=== PATIENT | female | born 1990 | race Caucasian/White ===

== ENCOUNTER 2024-03-26 19:29 | Outpatient (CLI) | payer BC, SELFPAY ==
--- OUTSIDE RECORDS SUMMARY | 2024-03-26 19:32 | XMS_ITS | Encounter Summary ---
Author Organization [facility] Address [address] [place] [address] Care Team Providers Care Nurse Administrator Name Role Phone Meghan Beach KHALIDA Primary Care Provider [phone] Encounter Details Date Type Department Care Team (Latest Contact Info) Description 03/04/2024 Travel Social History Tobacco Use Types Packs/Day Years Used Date Smoking Tobacco: Never Assessed PHQ-2 Answer Date Recorded Patient Health Questionnaire-2 Score 0 03/04/2024 Estimated Date of Delivery Comme nts Yes 04/02/2024 Sex and Gender Information Value Date Recorded Sex Assigned at Female 01/09/2024 8:09 AM EDT Legal Sex Female 11:07 AM EST Gender Identity Female 01/09/2024 8:09 AM EDT Sexual Orientation Straight 01/09/2024 8: 09 AM EDT documented as of this encounter Plan of Treatment Upcoming Encounters Date Type Department Care Team (Late st Contact Info) Description 04/08/2024 11:00 AM EST Routine Obstetrics & Gynecology [address] [place] [address] Abiel Berrios MD [address] [place] [address] documented as of this encounter Goals Goal Patient Goal Type Associated Problems Recent Progress Patient-Stated? Author Delayed Delivery Care Plan CPM S22 [facility] LABOR (OBSTETRICS) No Open Scheduling, Background documented as of this encounter Visit Diagnoses Not on filedocumented in this encounter Additional Health Concerns Active Problems Noted Date Diagnosed Date CPM S22 [facility] LAB[facility] (OBSTETRICS) 02/05/2024 Assessment Noted Time A fall risk assessment has been complete d for the patient 03/04/2024 1:58 PM EST A Body Mass Index follow-up plan has been documented for the patient 02/24/2024 4:18 PM EST documented as of this encounter Care Teams Nurse Administrator Relationship Specialty Start Date End Date Meghan Beach APRN [address] [place] [address] [place] [address] PCP - General 04/03/22 documented as of this encounter
--- OUTSIDE RECORDS SUMMARY | 2024-03-26 19:32 | XMS_ITS | Encounter Summary ---
Author Organization [facility] Address [address] [place] [address] Care Team Providers Care In File Operator Name Role Phone Meghan Beach KHALIDA Primary Care Provider [phone] Reason for Visit * Reason Comments NST/BPP Visit Here for NST with d ecreased movement for 2 weeks , denies leaking and bleeding, reports constant cramping and sporadic ctx. Fell in tub this morning, landed on knees. Reports 7/10 constant pain in stomach, back and legs Encounter Details Date Type Department Care Team (Late st Contact Info) Description 03/11/2024 1:40 PM EST NST Obstetrics & Gynecology [address] [place] [address] Abiel Berrios MD [address] [place] [address] 36 weeks gestation of (Primary Dx); Chronic hypertension complicating or reason for care during , third trimester; AMA (advanced maternal age) multigravida 35+, third trimester; Previous section complicating ; Diet controlled gestational diabetes mellitus (GDM) in third trimester Social History Tobacco Use Types Packs/Day Years Used Date Smoking Tobacco: Never Assessed PHQ-2 Answer Date Recorded Patient Health Questionnaire-2 Score 0 03/11/2024 Estimated Date of Delivery Comme nts Yes 04/02/2024 Sex and Gender Information Value Date Recorded Sex Assigned at Female 01/09/2024 8:09 AM EDT Legal Sex Female 11:07 AM EST Gender Identity Female 01/09/2024 8:09 AM EDT Sexual Orientation Straight 01/09/2024 8: 09 AM EDT documented as of this encounter Last Filed Vital Signs Vital Sign Reading Time Taken Comments Blood Pressure 138/84 03/11/2024 2:01 PM EST Pulse 96 03/11/2024 2:01 PM EST Temperature 36.8 ??C (98.3 ??F) 03/11/2024 2:01 PM ES T Respiratory Rate - - Oxygen Saturation 96% 03/11/2024 2:01 PM EST Inhaled Oxygen Concentration - - Weight 162 kg (357 lb 5.9 oz) 03/11/2024 2:01 PM EST Height - - Body Mass Index 57.68 03/08/2024 2:11 PM EST documented in this encounter Miscellaneous Notes * Procedures - Abiel Berrios MD - 03/11/2024 5:31 PM EST 03/11/24 1731 Non-Stress Baby A Reason for Non-Stress Test Diabetes;Hypertension Variability in Waveform for Baby A 6-25 BPM Decelerations in Baby A None Accelerations in Baby A Yes Acoustic Stimulator for Baby A No Baseline Heart Rate for Baby A 140 BPM Uterine Irritability for Baby A No Contractions in Baby A Not present Interpretation of Non-Stress Test Comments on Non-Stress Test Reactive $ NST Charge 1 * Progress Notes - Abiel Berrios MD - 03/11/2024 1:40 PM EST Subjective Chief Complaint Patient presents with NST/BPP Visit Here for NST with decreased movement for 2 weeks , denies leaking and bleeding, reports constant cramping and sporadic ctx. Fell in tub this morning, landed on knees. Reports 7/10 constant pain in stomach, back and legs Whitley Whitfield is a 33 y.o. at 36w6d with a working estimated date of delivery of 04/02/2024, Alternate ALBERTO Entry who presents for a routine visit. She denies vaginal bleeding, leakage of fluid, decreased movements, or contractions. BG checks OK. No Pe-E sxs. Her is complicated by: GDM A1 CHTN H/O LTCS x 2 The following portions of the chart were reviewed this encounter and updated as appropriate: Meds Objective Physical Exam Weight: 162 kg (357 lb 5.9 oz) Expected Total Weight Gain: 5 kg (11 lb)-9 kg (19 lb) Pregravid BMI: 59.81 BP: 138/84 Heart Rate: NST Labs Urine dip: NA HGB (g/dL) Date/Time Value 03/01/2024 1407 11.1 (L) HCT (%) Date/Time Value 03/01/2024 1407 34.2 No results found for: PAPPA , AFP , HCG , ESTRIOL , INHBA GTT - Fasting (mg/dL) Date/Time Value 02/03/2024 0816 127 (H) GTT - 1 Hour (mg/dL) Date/Time Value 02/03/2024 0921 268 (H) GTT - 2 Hour (mg/dL) Date/Time Value 02/03/2024 1024 197 (H) GTT - 3 Hour (mg/dL) Date/Time Value 02/03/2024 1121 111 NST - Reactive Assessment/Plan Diagnoses and all orders for this visit: 36 weeks gestation of Chronic hypertension complicating or reason for care during , third trimester AMA (advanced maternal age) multigravida 35+, third trimester Previous section complicating Diet controlled gestational diabetes mellitus (GDM) in third trimester Continue vitamin. Labs reviewed. GBS NEG Labetalol + Procardia + bASA BG checks Expected mode of delivery RLTCS Follow up in AM for surgery documented in this encounter Plan of Treatment Upcoming Encounters Date Type Department Care Team (Late st Contact Info) Description 04/08/2024 11:00 AM EST Routine [facility] [address] [place] [address] Abiel Berrios MD [address] [place] [address] documented as of this encounter Goals Goal Patient Goal Type Associated Problems Recent Progress Patient-Stated? Author Delayed Delivery Care Plan CPM S22 PP LABOR (OBSTETRICS) No Open Scheduling, Background documented as of this encounter Visit Diagnoses Diagnosis 36 weeks gestation of - Primary Chronic hypertension complicating or reason for care during , third trimester AMA (advanced maternal age) multigravida 35+, third trimester Previous section complicating Diet controlled gestational diabetes mellitus (GDM) in third trimester documented in this encounter Additional Health Concerns Active Problems Noted Date Diagnosed Date CPM S22 PP LABOR (OBSTETRICS) 02/05/2024 Assessment Noted Time A fall risk assessment has been complete d for the patient 03/11/2024 2:02 PM EST A Body Mass Index follow-up plan has been documented for the patient 02/24/2024 4:18 PM EST documented as of this encounter Care Teams In File Operator Relationship Specialty Start Date End Date Meghan Beach APRN [address] [place] [address] [place] [address] PCP - General 04/03/22 documented as of this encounter
--- OUTSIDE RECORDS SUMMARY | 2024-03-26 19:32 | XMS_ITS | Encounter Summary ---
Author Organization [facility] Address [address] [place] [address] Care Team Providers Care Newcomer Hostess Name Role Phone Meghan Beach KHALIDA Primary Care Provider [phone] Encounter Details Date Type Department Care Team (Latest Contact Info) Description 03/08/2024 Travel Social History Tobacco Use Types Packs/Day Years Used Date Smoking Tobacco: Never Assessed PHQ-2 Answer Date Recorded Patient Health Questionnaire-2 Score 0 03/08/2024 Estimated Date of Delivery Comme nts Yes [...] Routine Obstetrics & Gynecology [address] [place] [address] Abiel Berrios MD [address] [place] [address] documented as of this encounter [...] has been complete d for the patient 03/08/2024 2:12 PM EST A Body Mass Index follow-up plan has been documented for the patient 02/24/2024 4:18 PM EST documented as of this encounter Care Teams Newcomer Hostess Relationship Specialty Start Date End Date Meghan Beach APRN [address] [place] [address] [place] [address] PCP - General 04/03/22 documented as of this encounter
--- OUTSIDE RECORDS SUMMARY | 2024-03-26 19:32 | XMS_ITS | Encounter Summary ---
Author Organization [facility] Address [address] [place] [address] Care Team Providers Care Epidemiology Internship Name Role Phone Meghan Beach KHALIDA Primary Care Provider [phone] Encounter Details Date Type Department Care Team (Latest Contact Info) Description 03/15/2024 Travel Social History Tobacco Use Types Packs/Day [...] Routine Obstetrics & Gynecology [address] [place] [address] Abiel Berrios MD [address] [place] [address] documented as of this encounter [...] documented as of this encounter Care Teams Epidemiology Internship Relationship Specialty Start Date End Date Meghan Beach APRN [address] [place] [address] [place] [address] PCP - General 04/03/22 documented as of this encounter
--- OUTSIDE RECORDS SUMMARY | 2024-03-26 19:32 | XMS_ITS | Clinical Summary ---
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 Active labetalol (Normodyne) 200 MG tablet Take 1 tablet (200 mg) by mouth 3 (three) times a day. 90 tablet 3 01/21/2024 5 Active NIFEdipine XL (Procardia XL) 30 MG 24 hr tablet Take 1 tablet (30 mg) by mouth 2 (two) times a day. Do not crush, chew, or split. 60 tablet 5 01/27/2024 5 Active Vit-Fe Fumarate-FA ( Vitamins) 28-0.8 MG tablet Take 1 tablet by mouth 1 (one) time each day. 90 tablet 3 02/09/2024 5 Active Active Problems Problem Noted Date Diagnosed Date 35 weeks gestation of 03/01/2024 Chronic hypertension complic ating or reason for care during , third trimester 03/01/2024 Previous section complicating 03/01/2024 Multigravida of advanced maternal age in third t rimester 03/01/2024 Gestational diabetes mellitus (GDM) in third tri mester 03/01/2024 Estimated Date of Delivery Comme nts Yes 04/02/2024 Encounters Date Type Department Care Team Description 03/15/2024 Travel 03/11/2024 1:40 PM EST NST Obstetrics & Gynecology [address] [place] [address] Abiel Berrios MD 36 weeks gestation of (Primary Dx); Chronic hypertension complicating or reason for care during , third trimester; AMA (advanced maternal age) multigravida 35+, third trimester; Previous section complicating ; Diet controlled gestational diabetes mellitus (GDM) in third trimester 03/11/2024 Travel 03/08/2024 1:40 PM EST NST Obstetrics & Gynecology [address] [place] [address] Abiel Berrios MD 36 weeks gestation of (Primary Dx); Chronic hypertension complicating or reason for care during , third trimester; AMA (advanced maternal age) multigravida 35+, third trimester; Previous section complicating ; Diet controlled gestational diabetes mellitus (GDM) in third trimester; Decreased movements in third trimester, single or unspecified fetus 03/08/2024 Travel 03/04/2024 1:40 PM EST NST Obstetrics & Gynecology [address] [place] [address] Abiel Berrios MD 35 weeks gestation of (Primary Dx); Chronic hypertension complicating or reason for care during , third trimester; AMA (advanced maternal age) multigravida 35+, third trimester; Previous section complicating ; Diet controlled gestational diabetes mellitus (GDM) in third trimester 03/04/2024 Travel 03/03/2024 Telephone Obstetrics & Gynecology [address] [place] [address] Abiel Berrios MD [facility] Clinical Concern/Question (proof) 03/01/2024 1:40 PM EST NST Obstetrics & Gynecology [address] [place] [address] Alison Egan MD Chronic hypertension complicating or reason for care during , third trimester (Primary Dx); 35 weeks gestation of ; Multigravida of advanced maternal age in third trimester; Previous section complicating ; Diet controlled gestational diabetes mellitus (GDM) in third trimester 03/01/2024 Travel 02/24/2024 3:00 PM EST Routine Obstetrics & Gynecology [address] [place] [address] Abiel Berrios MD Chronic hypertension complicating or reason for care during , third trimester (Primary Dx); 34 weeks gestation of ; Previous section complicating ; Diet controlled gestational diabetes mellitus (GDM) in third trimester; AMA (advanced maternal age) multigravida 35+, third trimester 02/24/2024 2:35 PM EST - 02/24/2024 11:59 PM EST Hospital Encounter [facility] [address] [place] [address] Chronic hypertension complicating or reason for care during , third trimester Discharge Disposition: Home or Self Care 02/24/2024 Orders Only External Location [address] [place] [address] Abiel Berrios MD 02/24/2024 Travel 02/12/2024 9:20 AM EDT NST Obstetrics & Gynecology [address] [place] [address] Abiel Berrios MD 32 weeks gestation of (Primary Dx); Chronic hypertension complicating or reason for care during , third trimester; Previous section complicating ; Diet controlled gestational diabetes mellitus (GDM) in third trimester; AMA (advanced maternal age) multigravida 35+, third trimester 02/12/2024 Travel 02/09/2024 3:40 PM EDT NST Obstetrics & Gynecology [address] [place] [address] Abiel Berrios MD 32 weeks gestation of (Primary Dx); Chronic hypertension complicating or reason for care during , third trimester; Previous section complicating ; Diet controlled gestational diabetes mellitus (GDM) in third trimester; AMA (advanced maternal age) multigravida 35+, third trimester 02/09/2024 Travel 02/04/2024 Education Obstetrics & Gynecology [address] [place] [address] Shannon Magana RN Diet controlled gestational diabetes mellitus (GDM) in third trimester (Primary Dx) 02/03/2024 8:00 AM EDT Clinical Support Obstetrics & Gynecology [address] [place] [address] 31 weeks gestation of (Primary Dx) 02/03/2024 Travel 01/28/2024 Telephone Obstetrics & Gynecology [address] [place] [address] Abiel Berrios MD 01/27/2024 3:00 PM EDT Routine Obstetrics & Gynecology [address] [place] [address] Abiel Berrios MD 30 weeks gestation of (Primary Dx); Previous section complicating ; Chronic hypertension complicating or reason for care during , third trimester; AMA (advanced maternal age) multigravida 35+, third trimester 01/27/2024 2:53 PM EDT - 01/27/2024 11:59 PM EDT Hospital En[facility] [address] [place] [address] 29 weeks gestation of Discharge Disposition: Home or Self Care 01/27/2024 Travel 01/20/2024 Telephone Obstetrics & Gynecology [address] [place] [address] Abiel Berrios MD 01/19/2024 3:15 PM EDT Initial Obstetrics & Gynecology [address] [place] [address] Abiel Berrios MD GA: 29w3d 01/19/2024 Travel 01/06/2024 Telephone Obstetrics & Gynecology [address] [place] [address] Abiel Berrios MD [facility] - Patient Message from Last 3 Months Immunizations Name Administration Dates Next Due Influenza, seasonal, injectable, preservative fr ee 01/19/2024 Rsv, Bivalent, Protein Subun it Rsvpref, Diluent Reconstituted, 0.5mL, PF 02/09/2024 Tdap 01/19/2024 Family History Medical History Relation Name Comments Lupus Mother Relation Name Status Comments Mother Social History Tobacco Use Types Packs/Day Years [...] Orientation Straight 01/09/2024 8: 09 AM EDT Last Filed Vital Signs Vital Sign Reading Time Taken Comments Blood Pressure 138/84 03/11/2024 2:01 PM EST Pulse 96 03/11/2024 2:01 PM EST Temperature 36.8 ??C (98.3 ??F) 03/11/2024 2:01 PM ES T Respiratory Rate 16 01/27/2024 3:00 PM EDT Oxygen Saturation 96% 03/11/2024 2:01 PM EST Inhaled Oxygen Concentration - - Weight 162 kg (357 lb 5.9 oz) 03/11/2024 2:01 PM EST Height 167.6 cm (5' 6 ) 03/08/2024 2:11 PM EST Body Mass Index 57.68 03/08/2024 2:11 PM EST Plan of Treatment Upcoming Encounters Date Type Department Care Team (Late st Contact Info) Description 04/08/2024 11:00 AM EST Routine Obstetrics & Gynecology [address] [place] [address] Abiel Berrios MD [address] [place] [address] Health Maintenance Due Date Last Done Comments [facility]-HIV Screening 1988 [facility]-Hepatitis C Screening 1988 [facility]-/Child/Adol SDOH Screenings 1988 [facility]-Pneumococcal Vaccine: Pediatrics (0 to 5 Years) and At-Risk Patients (6 to 64 Years) (1 of 2 - PCV) 1994 [facility]-Varicella Vaccines (1 of 2 - 13+ 2-dose series) 2001 [facility]- SDOH Screenings 2006 [facility]-Adult SDOH Screenings 2006 [facility]-Pap Smear 2009 [facility]-Cervical Cancer Screening 2018 [facility]-HPV/Cotest 2018 [id number] Vaccine (2 - 2023- season) 2023 10/16/2022 [facility]-Depression Screening 03/11/2025 03/11/2024 [facility]-DTaP,Tdap,and Td Vaccines (9 - Td or Tdap) 01/18/2034 01/19/2024, 04/18/2022, 08/09/2016, Additional history exists [facility]-Zoster Vaccines (1 of 2) 2038 [facility]-Hepatitis A Vaccines Aged Out 12/01/2020, 07/21 No longer eligible based on patient's age to complete this topic [facility]-Hepatitis B Vaccines Completed 021, 08/09/2016, 11/25/2002 [facility]-Influenza Vaccine Completed 01/19/2024 [facility]-RSV Vaccine: 60+ Years or Completed 02/09/2024 [facility]-Obesity Intervention Completed 024, 02/03/2024, 01/27/2024, Additional history exists [facility]-HIB Vaccines Aged Out No longer e ligible based on patient's age to complete this topic [facility]-HPV Vaccines Aged Out No longer e ligible based on patient's age to complete this topic [facility]-IPV Vaccines Aged Out No longer e ligible based on patient's age to complete this topic [facility]-Rotavirus Vaccines Aged Out No lo nger eligible based on patient's age to complete this topic Goals Goal Patient Goal Type Associated Problems Recent Progress Patient-Stated? Author Delayed Delivery Care Plan CPM S22 PP LABOR (OBSTETRICS) No Open Scheduling, Background Procedures Procedure Name Priority Date/Time Associated Diagnosis Comments CBC W/O DIFFERENTIAL Routine 03/13/2024 6:51 AM EST TYPE AND SCREEN Routine 03/12/2024 5:30 AM EST CREATININE, SERUM Routine 03/12/2024 5:3 0 AM EST LACTATE DEHYDROGENASE, PLASMA Routine 03/12/2024 5:30 AM EST URIC ACID, PLASMA Routine 03/12/2024 5:3 0 AM EST ASPARTATE AMINOTRANSFERASE, PLASMA Routine 03/12/2024 5:30 AM EST ALANINE AMINOTRANSFERASE, PLASMA Routine 03/12/2024 5:30 AM EST URINE TOTAL PROTEIN/CREATININE ([facility]) Routine 03/12/2024 5:30 AM EST CBC WITH AUTO DIFFERENTIAL Routine 03/12/2024 5:30 AM EST GROUP B STREPTOCOCCUS BY PCR Routine 03/08/2024 2:32 PM EST 36 weeks gestation of POCT URINALYSIS DIPSTICK Routine 03/08/2024 2:18 PM EST 36 weeks gestation of POCT URINALYSIS DIPSTICK Routine 03/01/2024 2:26 PM EST Chronic hypertension complicating or reason for care during , third trimester PROTEIN, URINE, RANDOM WITH CREATININE Routine 03/01/2024 2:07 PM EST Chronic hypertension complicating or reason for care during , third trimester OB PANEL PRE ECLAMPSIA, PLASMA Routine 03/01/2024 2:07 PM EST Chronic hypertension complicating or reason for care during , third trimester CBC W/O DIFFERENTIAL Routine 03/01/2024 2:07 PM EST Chronic hypertension complicating or reason for care during , third trimester TYPE AND SCREEN Routine 02/24/2024 5:07 PM EST CREATININE, SERUM Routine 02/24/2024 5:0 7 PM EST LACTATE DEHYDROGENASE, PLASMA Routine 02/24/2024 5:07 PM EST URIC ACID, PLASMA Routine 02/24/2024 5:0 7 PM EST ASPARTATE AMINOTRANSFERASE, PLASMA Routine 02/24/2024 5:07 PM EST ALANINE AMINOTRANSFERASE, PLASMA Routine 02/24/2024 5:07 PM EST CBC W/O DIFFERENTIAL Routine 02/24/2024 5:07 PM EST URINE TOTAL PROTEIN/CREATININE ([facility]) Routine 02/24/2024 5:00 PM EST URINE CULTURE Routine 02/24/2024 5:00 PM EST POCT URINALYSIS DIPSTICK Routine 02/24/2024 4:09 PM EST Chronic hypertension complicating or reason for care during , third trimester URINE CULTURE Routine 02/24/2024 4:09 PM EST Chronic hypertension complicating or reason for care during , third trimester OB US FOLLOW UP TRANSABDOMINAL APPROACH Routine 02/24/2024 3:54 PM EST Chronic hypertension complicating or reason for care during , third trimester GTT 3 HOUR Routine 02/03/2024 11:21 AM EDT 31 weeks gestation of GTT 2 HOUR Routine 02/03/2024 10:24 AM EDT 31 weeks gestation of GTT 1 HOUR Routine 02/03/2024 9:21 AM EDT 31 weeks gestation of GTT, FASTING Routine 02/03/2024 8:16 AM EDT 31 weeks gestation of GLUCOSE TOLERANCE CONFIRMATION, 3 HOUR, OB, PLASMA Routine 02/03/2024 8:16 AM EDT 31 weeks gestation of OB US 14+ WEEKS ANATOMY SCAN Routine 01/27/2024 3:53 PM EDT 29 weeks gestation of CBC W/O DIFFERENTIAL Routine 01/27/2024 3:03 PM EDT 30 weeks gestation of GLUCOSE CHALLENGE - OB SCREEN Routine 01/27/2024 3:03 PM EDT 30 weeks gestation of POCT URINALYSIS DIPSTICK Routine 01/19/2024 4:22 PM EDT 29 weeks gestation of from Last 3 Months Results * (ABNORMAL) CBC W/O Differential (03/13/2024 6:51 AM EST) Only the most recent of4 resultswithin the time period is included. External WBC 10.1 4.0 - 10.5 K/ul [facility] External Red Blood Cell (RBC) 3.3(L) 4.2 - 6.4 M/mm3 [facility] External Hemoglobin 9.9(L) 12.5 - 16.0 gm/dl [facility] External Hematocrit 29.8(L) 37.0 - 47.0 % [facility] External MCV 90.3 78 - 100 fl [facility] External MCH 30.0 27 - 31 pg [facility] External MCHC 33.2 32 - 36 g/dl [facility] External RDW 15.6(H) 11.5 - 14.0 % [facility] External Platelets 200 150 - 450 K/ul [facility] External MPV 10.1(H) 6 - 9.5 fl [facility] External Manual Differential NO [facility] 03/13/2024 6:51 AM EST 03/13/2024 6:51 AM EST Result Saw Berrios MD LAB BLOOD ORDERABLES Final Resu lt Performing Organization Address [facility] Phone Number [facility] * Urine Total Protein/Creatinine ([facility]) (03/12/2024 5:30 AM EST) Only the most recent of2 resultswithin the time period is included. External Creatinine Urine 228.2 MG/DL [facility] External Protein, Ur Random 65.5 6.0 - 250.0 mg/dL [facility] 03/12/2024 5:30 AM EST 03/12/2024 5:41 AM EST Result Saw Berrios MD LAB URINE ORDERABLES Final Resu lt Performing Organization Address [facility] Phone Number [facility] * Aspartate Aminotransferase, Plasma (03/12/2024 5:30 AM EST) Only the most recent of2 resultswithin the time period is included. External AST (SGOT) 16 0 - 37 U/L [facility] 03/12/2024 5:30 AM EST 03/12/2024 5:41 AM EST Result Saw Berrios MD LAB BLOOD ORDERABLES Final Resu lt Performing Organization Address [facility] Phone Number [facility] * Alanine Aminotransferase, Plasma (03/12/2024 5:30 AM EST) Only the most recent of2 resultswithin the time period is included. External ALT (SGPT) 14 0 - 65 U/L [facility] 03/12/2024 5:30 AM EST 03/12/2024 5:41 AM EST Result Saw Berrios MD LAB BLOOD ORDERABLES Final Resu lt [facility] * (ABNORMAL) CBC and Differential (03/12/2024 5:30 AM EST) External WBC 13.2(H) 4.0 - 10.5 K/ul [facility] External Red Blood Cell (RBC) 4.1(L) 4.2 - 6.4 M/mm3 [facility] External Hemoglobin 12.1(L) 12.5 - 16.0 gm/dl [facility] External Hematocrit 35.8(L) 37.0 - 47.0 % [facility] External MCV 87.3 78 - 100 fl [facility] External MCH 29.5 27 - 31 pg [facility] External MCHC 33.8 32 - 36 g/dl [facility] External RDW 15.1(H) 11.5 - 14.0 % [facility] External Platelets 272 150 - 450 K/ul [facility] External MPV 10.4(H) 6 - 9.5 fl [facility] External Neutrophils % 79.2(H) 43 - 65 % [facility] External Lymphocyte % 14.1(L) 20.5 - 45.5 % [facility] External Monocyte % 3.9(L) 5.5 - 11.7 % [facility] External Eosinophil% 2.0 0.9 - 2.9 % [facility] External Basophil % 0.3 0.2 - 1.0 % [facility] External Immature Granulocyte% 0.5 0.0 - 0.8 % [facility] External Nucleated RBC % 0.0 % [facility] External Neutrophil# 10.5(H) 2.2 - 4.8 K/uL [facility] External Lymphocyte# 1.9 1.3 - 2.9 CELL/MCL [facility] External Monocyte# 0.5 0.3 - 0.8 CELL/MCL [facility] External Eosinophils# 0.3(H) 0 - 0.2 CELL/MCL [facility] External Baso# 0.0 0.0 - 1.0 CELL/MCL [facility] External Immature Granulocyte Abs 0.07 K/ul [facility] External Nucleated RBC Absolute 0.00 K/uL [facility] External Manual Differential NO [facility] 03/12/2024 5:30 AM EST 03/12/2024 5:41 AM EST Result Saw Berrios MD LAB BLOOD ORDERABLES Final Resu lt Performing Organization Address [facility] Phone Number [facility] * Type and Screen (03/12/2024 5:30 AM EST) Only the most recent of2 resultswithin the time period is included. External History Check Completed [facility] External ABO/Rh O POSITIVE [facility] Comment:performed by [employer] External Antibody Screen NEGATIVE [facility] Comment:performed by [employer] External Status Information Completed [facility] 03/12/2024 5:30 AM EST 03/12/2024 5:41 AM EST Result Saw Berrios MD LAB BLOOD BANK TEST ORDERABLES Final Result Performing Organization Address [facility] Phone Number [facility] * Uric Acid, Plasma (03/12/2024 5:30 AM EST) Only the most recent of2 resultswithin the time period is included. External Uric Acid 5.4 2.6 - 6.0 mg/dL [facility] 03/12/2024 5:30 AM EST 03/12/2024 5:41 AM EST Result Saw Berrios MD LAB BLOOD ORDERABLES Final Resu lt Performing Organization Address [facility] Phone Number [facility] * Lactate Dehydrogenase, Plasma (03/12/2024 5:30 AM EST) Only the most recent of2 resultswithin the time period is included. External LDH Lactate Dehydrogenase 158 0 - 190 U/L [facility] 03/12/2024 5:30 AM EST 03/12/2024 5:41 AM EST us Abiel Berrios MD LAB BLOOD ORDERABLES Final Resu Performing Organization Address [facility] Phone Number [facility] * Creatinine, serum (03/12/2024 5:30 AM EST) Only the most recent of2 resultswithin the time period is included. External Creatinine Blood 0.6 0.6 - 1.3 mg/dL [facility] External Estimated GFR 120 60- mlpermin [facility] Comment: GFR LIMITATION: ? The eGFR equation CKD-EPI 2020 is not applicable for pediatric patients or greater than 90 years of age. The following conditions may alter the GFR result: extremes in body size, malnutrition or obesity, skeletal muscle disease, paraplegia or quadriplegia, ??vegetarian diet or rapidly changing kiney function. 03/12/2024 5:30 AM EST 03/12/2024 5:41 AM EST us Abiel Berrios MD LAB BLOOD ORDERABLES Final Resu Performing Organization Address [facility] Phone Number [facility] * Group B Streptococcus by PCR (03/08/2024 2:32 PM EST) Group B Streptococcus PCR Result Not Detected Not Detected 03/11/2024 8:17 AM EST [facility] Swab Rectovaginal / Unknown Non-blood Collection / Unknown 03/08/2024 2:32 PM EST 03/08/2024 6:21 PM EST Narrative [facility] - 03/11/2024 8:17 AM EST This test is FDA approved for use with vaginal/rectal swab using the eSwabs. This test is used for clinical purposes. It should not be regarded as investigational or for research. This laboratory is certified under the Clinical Laboratory improvement Amendments of 1988 (CLIA-88 as qualified to perform high complexity clinical laboratory testing. us Abiel Berrios MD LAB MICROBIOLOGY - [facility] Final Result [facility] [address] [place] [address] * (ABNORMAL) Urine dip (03/08/2024 2:18 PM EST) Only the most recent of4 resultswithin the time period is included. POCT Urine Color Yellow POCT Urine Clarity Clear POCT Glucose Urine Negative Negative mg/dL POCT Bilirubin, Urine Negative Negative POCT Ketones, Urine 15(A) Negative mg/dL POCT Specific [place], Urine 1.020 POCT Blood, Urine Negative Negative POCT pH, Urine 6.5 5.0 to 8.0 POCT Protein, Urine Negative Negative mg/dL POCT Urobilinogen, Urine 0.2 0.2, 1 E.U./dL POCT Nitrite, Urine Negative Negative POCT Leukocyte Esterase, Urine Trace(A) Negative Test Strip Lot Number [id number] Test Strip Lot Expiration 06/2024 Urine Urine specimen obtained by clean catch procedure / Unknown 03/08/2024 2:18 PM EST us Abiel Berrios MD POINT OF CARE TEST ENTER/EDIT O RDERABLES Final Result * (ABNORMAL) OB Panel Pre-Eclampsia, Plasma (03/01/2024 2:07 PM EST) Pathologist [facility] Uric Acid, Plasma 5.1 3.1 - 7.1 mg/dL 03/01/2024 6:16 PM EST [facility] Creatinine, Plasma 0.52(L) 0.60 - 1.10 mg/dL 03/01/2024 6:16 PM EST [facility] ALT, Plasma 15 10 - 35 U/L 03/01/2024 6:16 PM EST [facility] AST, Plasma 15 10 - 35 U/L 03/01/2024 6:16 PM EST [facility] LDH, Plasma 154 116 - 250 U/L 03/01/2024 6:16 PM EST [facility] eGFRcr 124.4 mL/min/1.7 3m*2 03/01/2024 6:16 PM EST [facility] Comment:Reported eGFRcr in m L/min/1.73m2 is based the CKD-EPI 2020 equation that does not use a race coefficient. Blood Venous blood specimen / Unknown Venipuncture / Unknown 03/01/2024 2:07 PM EST 03/01/2024 5:56 PM EST Alison Egan MD LAB BLOOD ORDERABLES Fin al Result Performing Organization Address City/[facility] Co de Phone Number [facility] [address] [place] [address] * Protein, Random, Urine with Creatinine (03/01/2024 2:07 PM EST) Protein, Urine 38 mg/dL 03/01/2024 6:34 PM EST [facility] Creatinine, Urine 187 mg/dL 03/01/2024 6:34 PM EST [facility] Protein/Creatin ine Ratio 0.2 mg/mg Creat 03/01/2024 6:34 PM EST [facility] Urine Urine specimen obtained by clean catch procedure / Unknown Non-blood Collection / Unknown 03/01/2024 2:07 PM EST 03/01/2024 6:02 PM EST us Alison Egan MD LAB URINE ORDERABLES Fin al Result Performing Organization Address City/[facility]/ZIP Co de Phone Number [facility] [address] [place] [address] * Urine Culture (02/24/2024 5:00 PM EST) Only the most recent of2 resultswithin the time period is included. External Culture Specimen NO.: ?[id number] ? Exam Status: ?? Final ? Procedure: ??CULTURE URINE ? Iso/Result: 01 Escherichia coli ? Antimicrobic/Do se ?LYN ?Systemic ??Urine ? __ ?___ ? Amikacin ? <=16 ? S ?S ? Amox/K Clav ?<=8/4 ?S ?S ? Ampicillin ? <=8 ?S ?S ? Amp/Sulbactam ?<=8/4 ?S ?S ? Aztreonam ?<=4 ?S ?S ? Cefotaxime-ESBL ?<=1 ? Cefepime ? <=2 ?S ?S ? Ertapenem ?<=0.5 ?S ?S ? Levofloxacin ? <=2 ?S ?S ? Meropenem ?<=1 ?S ?S ? Minocycline ?<=4 ?S ?S ? Cefazolin ?<=2 ?S ?S ? Cefotaxime ? <=2 ?S ?S ? Cefotetan ?<=16 ? S ?S ? Ceftazidime ?<=1 ?S ?S ? Ceftriaxone ?<=1 ?S ?S ? Ciprofloxacin ?<=1 ?S ?S ? Gentamicin ? <=4 ?S ?S ? Nitrofurantoin ? <=32 ? S ?S ? Pip/Tazo ? <=16 ? S ?S ? Tetracycline ? <=4 ?S ?S ? Tobramycin ? <=4 ?S ?S ? Trimeth/Sulfa ?<=2/38 ? S ?S ? [facility] External Comments AAC 2024-02-25 701 >100,000 [place] Count Gram Negative Rods [facility] 02/24/2024 5:00 PM EST 02/24/2024 7:45 PM EST Result Saw Berrios MD [facility] Final Result Performing Organization Address City/State/[facility] Co de Phone Number [facility] * OB US Follow Up Transabdominal Approach (02/24/2024 3:54 PM EST) Anatomical Region Laterality Modality Body Ultrasound 02/24/2024 3:31 PM EST Impressions 02/24/2024 7:55 PM EST The OB Ultrasound you requested has been resulted. Please navigate to the Imaging tab in [employer] for review. This message has been generated by the interface. Narrative Procedure Note Barbara De La Cruz MD - 02/24/2024 IMPRESSION: The OB Ultrasound you requested has been resulted. Please navigate to theImaging tab in [employer] for review. This message has been generated by theinterface. Result Saw Berrios MD IMG OB US PROCEDURES Final Resu lt * GTT 3 Hour (02/03/2024 11:21 AM EDT) GTT - 3 Hour 111 74 - 139 mg/dL 02/03/2024 1:55 PM EDT [facility] Blood Venous blood specimen / Unknown Venipuncture / Unknown 02/03/2024 11:21 AM EDT 02/03/2024 12:55 PM EDT Narrative [facility] - 02/03/2024 1:55 PM EDT At least 2 of the 4 values must be abnormal for the diagnosis of gestational diabetes. Result Saw Berrios MD LAB BLOOD ORDERABLES Final Resu lt Performing Organization Address [facility] Co de Phone Number [facility] [address] [place] [address] * (ABNORMAL) GTT 2 Hour (02/03/2024 10:24 AM EDT) GTT - 2 Hour 197(H) 74 - 154 mg/dL 02/03/2024 1:48 PM EDT [facility] Blood Venous blood specimen / Unknown Venipuncture / Unknown 02/03/2024 10:24 AM EDT 02/03/2024 12:55 PM EDT Narrative [facility] - 02/03/2024 1:48 PM EDT Plasma glucose concentrations measured 2 hours after a 75g glucose load of >=200 mg/dL are diagnostic for Diabetes Mellitus. Result Saw Berrios MD LAB BLOOD ORDERABLES Final Resu lt Performing Organization Address [facility] Co de Phone Number [facility] [address] [place] [address] * (ABNORMAL) GTT 1 Hour (02/03/2024 9:21 AM EDT) GTT - 1 Hour 268(H) 74 - 179 mg/dL 02/03/2024 1:54 PM EDT [facility] Blood Venous blood specimen / Unknown Venipuncture / Unknown 02/03/2024 9:21 AM EDT 02/03/2024 12:55 PM EDT Result Saw Berrios MD LAB BLOOD ORDERABLES Final Resu lt Performing Organization Address City/[facility]/ZIP Co de Phone Number [facility] [address] [place] [address] * (ABNORMAL) GTT, Fasting (02/03/2024 8:16 AM EDT) GTT - Fasting 127(H) 74 - 94 mg/dL 02/03/2024 1:49 PM EDT [facility] Blood Venous blood specimen / Unknown Venipuncture / Unknown 02/03/2024 8:16 AM EDT 02/03/2024 12:55 PM EDT Result Saw Berrios MD LAB BLOOD ORDERABLES Final Resu lt [facility] [address] [place] [address] * OB US 14+ Weeks Anatomy Scan (01/27/2024 3:53 PM EDT) Anatomical Region Laterality Modality Body Ultrasound 01/27/2024 3:07 PM EDT Impressions 01/29/2024 2:12 PM EDT The OB Ultrasound you requested has been resulted. Please navigate to the Imaging tab in [employer] for review. This message has been generated by the interface. Narrative Procedure Note Stevo Huff MD - 01/29/2024 IMPRESSION: The OB Ultrasound you requested has been resulted. Please navigate to theImaging tab in [employer] for review. This message has been generated by theinterface. Result Saw Berrios MD IMG OB US PROCEDURES Final Resu lt * (ABNORMAL) Glucose Challenge - OB Screen 1 hour (01/27/2024 3:03 PM EDT) Glucose OB Screen - 1 Hour 156(H) 74 - 139 mg/dL 01/27/2024 6:47 PM EDT [facility] Blood Venous blood specimen / Unknown Venipuncture / Unknown 01/27/2024 3:03 PM EDT 01/27/2024 6:19 PM EDT Narrative [facility] - 01/27/2024 6:47 PM EDT If plasma glucose concentration measured 1 hour after 50g glucose load is >= 140 mg/L, proceed to [id number], Glucose Tolerance Confirmation 3 Hour Test. us Abiel Berrios MD LAB BLOOD ORDERABLES Final Resu lt [facility] [address] [place] [address] from Last 3 Months Additional Health Concerns Active Problems Noted Date Diagnosed Date CPM S22 PP LABOR (OBSTETRICS) 02/05/2024 Insurance [facility] MEDICAID Care Teams Animal Cruelty Investigator Relationship Specialty Start Date End Date Meghan Beach APRN [address] [facility] [place] [address] PCP - General 04/03/22
--- OUTSIDE RECORDS SUMMARY | 2024-03-26 19:32 | XMS_ITS | Encounter Summary ---
Author Organization Healthcare Address [address] [place] [address] Care Team Providers Care Screen Maker Name Role Phone Meghan Beach KHALIDA Primary Care Provider [phone] Reason for Visit * Reason Comments NST/BPP Visit Here for NST with go od movement, no leaking or bleeding, some cramping, denies ctx. Encounter Details Date Type Department Care Team (Late st Contact Info) Description 03/04/2024 1:40 PM EST [facility] Obstetrics & Gynecology [address] [place] [address] Abiel Berrios MD [address] [place] [address] 35 weeks gestation of (Primary Dx); Chronic [...] Sign Reading Time Taken Comments Blood Pressure 132/83 03/04/2024 1:57 PM EST Pulse 100 03/04/2024 1:57 PM EST Temperature 36.7 ??C (98.1 ??F) 03/04/2024 1:57 PM ES T Respiratory Rate - - Oxygen Saturation 90% 03/04/2024 1:57 PM EST Inhaled Oxygen Concentration - - Weight 163 kg (358 lb 14.5 oz) 03/04/2024 1:57 P M EST Height - - Body Mass Index 57.93 03/01/2024 1:47 PM EST documented in this encounter Miscellaneous Notes * Procedures - Abiel Berrios MD - 03/04/2024 2:47 PM EST 03/04/24 1447 Non-Stress Baby A Reason for Non-Stress Test Diabetes;Hypertension;Advanced maternal age Variability in Waveform for Baby A 6-25 BPM Decelerations in Baby A None Accelerations in Baby A Yes Acoustic Stimulator for Baby A No Baseline Heart Rate for Baby A 150 BPM Uterine Irritability for Baby A No Contractions in Baby A Not present Interpretation of Non-Stress Test Comments on Non-Stress Test Reactive $ NST Charge 1 * Progress Notes - Abiel Berrios MD - 03/04/2024 1:40 PM EST Subjective Chief Complaint Patient presents with NST/BPP Visit Here for NST with good movement, no leaking or bleeding, some cramping, denies ctx. Whitley Whitfield is a 33 y.o. at 35w6d with a working estimated date of delivery of 04/02/2024, Alternate ALBERTO Entry who presents for a routine visit. She denies vaginal bleeding, leakage of fluid, decreased movements, or contractions. Her is complicated by: CHTN GDM A1 H/O LTCS x 2 AMA The following portions of the chart were reviewed this encounter and updated as appropriate: Meds Objective Physical Exam Weight: 163 kg (358 lb 14.5 oz) Expected Total Weight Gain: 5 kg (11 lb)-9 kg (19 lb) Pregravid BMI: 59.81 BP: 132/83 Heart Rate: NST Labs Urine dip: NA [...] Diagnoses and all orders for this visit: 35 weeks gestation of Chronic hypertension complicating or reason for care during , third trimester AMA (advanced maternal age) multigravida 35+, third trimester Previous section complicating Diet controlled gestational diabetes mellitus (GDM) in third trimester Continue vitamin. Labs reviewed. GBS at 36 weeks BG checks Labetalol + Procardia + bASA Expected mode of delivery RLTCS Follow up 2x/week for a routine visit w/ NSTs. documented in this encounter Plan of Treatment Upcoming Encounters Date Type Department Care Team (Late st Contact Info) Description 04/08/2024 11:00 AM EST Routine [facility] [address] [place] [address] Abiel Berrios MD [address] [place] [address] documented as of this encounter Goals Goal Patient Goal Type Associated Problems Recent Progress Patient-Stated? Author Delayed Delivery Care Plan CPM S22 PP LABOR (OBSTETRICS) No Open Scheduling, Background documented as of this encounter Visit Diagnoses Diagnosis 35 weeks gestation of - Primary Chronic hypertension [...] documented as of this encounter Care Teams Screen Maker Relationship Specialty Start Date End Date Meghan Beach, KHALIDA [address] [place] [address] [place] [address] PCP - General 04/03/22 documented as of this encounter
--- OUTSIDE RECORDS SUMMARY | 2024-03-26 19:32 | XMS_ITS | Encounter Summary ---
Author Organization [facility] Address [address] [place] [address] Care Team Providers Care Cooking Show Host Name Role Phone Meghan Beach KHALIDA Primary Care Provider Reason for Visit * Reason Comments NST/BPP Visit 36w3d FAWAD NSTdecreas ed FM-counting kicks on monitor has felt 6 kicks No VB/LOFNo CTX/crampingPre E SS: headache that will not go away with tylenol, intermittent blurry vision, denies swelling and RUQ pain BP 161/91 recheck 129/80 Encounter Details Date Type Department Care Team (Late st Contact Info) Description 03/08/2024 1:40 PM EST NST Obstetrics & Gynecology [address] [place] [address] Abiel Berrios MD [address] [place] [address] 36 weeks gestation of (Primary Dx); Chronic hypertension complicating or reason for care during , third trimester; AMA (advanced maternal age) multigravida 35+, third trimester; Previous section complicating ; Diet controlled gestational diabetes mellitus (GDM) in third trimester; Decreased movements in third trimester, single or unspecified fetus Social History Tobacco Use Types Packs/Day Years [...] Sign Reading Time Taken Comments Blood Pressure 129/80 03/08/2024 2:20 PM EST Pulse 100 03/08/2024 2:11 PM EST Temperature 37.1 ??C (98.7 ??F) 03/08/2024 2:11 PM ES T Respiratory Rate - - Oxygen Saturation 98% 03/08/2024 2:11 PM EST Inhaled Oxygen Concentration - - Weight 163 kg (360 lb 0.2 oz) 03/08/2024 2:11 PM EST Height 167.6 cm (5' 6 ) 03/08/2024 2:11 PM EST Body Mass Index 58.11 03/08/2024 2:11 PM EST documented in this encounter Miscellaneous Notes * Procedures - Abiel Berrios MD - 03/08/2024 3:04 PM EST 03/08/24 1504 Non-Stress Baby A Reason for Non-Stress Test Hypertension;Diabetes;Advanced maternal age;Decreased movement Variability in Waveform for Baby A 6-25 BPM Decelerations in Baby A None Accelerations in Baby A Yes Acoustic Stimulator for Baby A No Baseline Heart Rate for Baby A 130 BPM Uterine Irritability for Baby A No Contractions in Baby A Not present Interpretation of Non-Stress Test Comments on Non-Stress Test Reactive $ NST Charge 1 * Progress Notes - Abiel Berrios MD - 03/08/2024 1:40 PM EST Subjective Chief Complaint Patient presents with NST/BPP Visit 36w3d FAWAD NST decreased FM-counting kicks on monitor has felt 6 kicks No VB/LOF No CTX/cramping Pre E SS: headache that will not go away with tylenol, intermittent blurry vision, denies swelling and RUQ pain BP 161/91 recheck 129/80 Whitley Whitfield is a 33 y.o. at 36w3d with a working estimated date of delivery of 04/02/2024, Alternate ALBERTO Entry who presents for a routine visit. She denies vaginal bleeding, leakage of fluid - some episodes of decreased movements - but no contractions. Some mild LEVIN - but other Pre-E sxs OK. BG checks OK. Her is complicated by: GDM A1 CHTN AMA H/O LTCS x 2 The following portions of the chart were reviewed this encounter and updated as appropriate: Meds Objective Physical Exam Weight: 163 kg (360 lb 0.2 oz) Expected Total Weight Gain: 5 kg (11 lb)-9 kg (19 lb) Pregravid BMI: 59.81 BP: 129/80 Heart Rate: NST Labs Urine dip: NEG PTN HGB (g/dL) Date/Time Value 03/01/2024 1407 11.1 [...] for this visit: 36 weeks gestation of - Urine dip - Group B Streptococcus by PCR Chronic hypertension complicating or reason for care during , third trimester AMA (advanced maternal age) multigravida 35+, third trimester Previous section complicating Diet controlled gestational diabetes mellitus (GDM) in third trimester Decreased movements in third trimester, single or unspecified fetus Continue vitamin. Labs reviewed. GBS taken. Expected mode of delivery RLTCS Labetalol + Procardia + bASA Strict pre-E precs BG checks Rest Follow up 2x/week for a routine visit w/ NSTs. documented in this encounter Plan of Treatment Upcoming Encounters Date Type Department Care Team (Late st Contact Info) Description 04/08/2024 11:00 AM EST Routine Obstetrics & Gynecology [address] [place] [address] Abiel Berrios MD [address] [place] [address] documented as of this encounter Goals Goal Patient Goal Type Associated Problems Recent Progress Patient-Stated? Author Delayed Delivery Care Plan CPM S22 PP LABOR (OBSTETRICS) No Open Scheduling, Background documented as of this encounter Procedures Procedure Name Priority Date/Time Associated Diagnosis Comments GROUP B STREPTOCOCCUS BY PCR Routine 03/08/2024 2:32 PM EST 36 weeks gestation of POCT URINALYSIS DIPSTICK Routine 03/08/2024 2:18 PM EST 36 weeks gestation of documented in this encounter Results * Group B Streptococcus by PCR (03/08/2024 2:32 PM EST) Group B Streptococcus PCR Result Not Detected Not Detected 03/11/2024 8:17 AM EST [facility] Swab Rectovaginal / Unknown Non-blood Collection / Unknown 03/08/2024 2:32 PM EST 03/08/2024 6:21 PM EST Narrative [facility] - 03/11/2024 8:17 AM EST This test is FDA approved for use with vaginal/rectal swab using the eSwabs. This test is used for clinical purposes. It should not be regarded as investigational or for research. This laboratory is certified under the Clinical Laboratory improvement Amendments of 1988 (CLIA-88 as qualified to perform high complexity clinical laboratory testing. Abiel Berrios MD LAB MICROBIOLOGY - GENERAL ORDE DENNIS Final Result [facility] [address] [place] [address] * (ABNORMAL) Urine dip (03/08/2024 2:18 PM EST) POCT Urine Color Yellow POCT Urine Clarity Clear POCT Glucose Urine Negative Negative mg/dL POCT Bilirubin, Urine Negative Negative POCT Ketones, Urine 15(A) Negative mg/dL POCT Specific [place], Urine 1.020 POCT Blood, Urine Negative Negative POCT pH, Urine 6.5 5.0 to 8.0 POCT Protein, Urine Negative Negative mg/dL POCT Urobilinogen, Urine 0.2 0.2, 1 E.U./dL POCT Nitrite, Urine Negative Negative POCT Leukocyte Esterase, Urine Trace(A) Negative Test Strip Lot Number [id number] Test Strip Lot Expiration 06/2024 Urine Urine specimen obtained by clean catch procedure / Unknown 03/08/2024 2:18 PM EST Abiel Berrios MD POINT OF CARE TEST ENTER/EDIT O RDERABLES Final Result documented in this encounter Visit Diagnoses Diagnosis 36 weeks gestation of - Primary Chronic hypertension complicating or reason for care during , third trimester AMA (advanced maternal age) multigravida 35+, third trimester Previous section complicating Diet controlled gestational diabetes mellitus (GDM) in third trimester Decreased movements in third trimester, single or unspecified fetus documented in this encounter Additional Health Concerns Active Problems Noted Date Diagnosed Date CPM S22 PP LABOR (OBSTETRICS) 02/05/2024 Assessment Noted Time A fall risk assessment has been complete d for the patient 03/08/2024 2:12 PM EST A Body Mass Index follow-up plan has been documented for the patient 02/24/2024 4:18 PM EST documented as of this encounter Care Teams Cooking Show Host Relationship Specialty Start Date End Date Meghan Beach APRN [address] [place] [address] [place] [address] PCP - General 04/03/22 documented as of this encounter
--- OUTSIDE RECORDS SUMMARY | 2024-03-26 19:32 | XMS_ITS | Encounter Summary ---
Author Organization [facility] Address [address] [place] [address] Care Team Providers Care Driver Engineer Name Role Phone Meghan Beach KHALIDA Primary Care Provider [phone] Encounter Details Date Type Department Care Team (Latest Contact Info) Description 03/11/2024 Travel Social History Tobacco Use Types Packs/Day [...] Routine Obstetrics & Gynecology [address] [place] [address] Abiel Brerios MD [address] [place] [address] documented as of this encounter [...] documented as of this encounter Care Teams Driver Engineer Relationship Specialty Start Date End Date Meghan Beach APRN [address] [place] [address] [place] [address] PCP - General 04/03/22 documented as of this encounter
--- OUTSIDE RECORDS SUMMARY | 2024-03-26 19:33 | XMS_ITS | Encounter Summary ---
Author Organization [facility] Address [address] [place] [address] Care Team Providers Care Fit Model Name Role Phone Meghan Beach KHALIDA Primary Care Provider [phone] Encounter Details Date Type Department Care Team (Latest Contact Info) Description 02/24/2024 Travel Social History Tobacco Use Types Packs/Day Years Used Date Smoking Tobacco: Never Assessed PHQ-2 Answer Date Recorded Patient Health Questionnaire-2 Score 0 02/24/2024 Estimated Date of Delivery Comme nts Yes [...] Routine Obstetrics & Gynecology [address] [place] [address] Abiel Berrios MD [address] [place] [address] documented as of this encounter [...] has been complete d for the patient 02/24/2024 4:07 PM EST A Body Mass Index follow-up plan has been documented for the patient 02/24/2024 4:18 PM EST documented as of this encounter Care Teams Fit Model Relationship Specialty Start Date End Date Meghan Beach APRN [address] [place] [address] [place] [address] PCP - General 04/03/22 documented as of this encounter
--- OUTSIDE RECORDS SUMMARY | 2024-03-26 19:33 | XMS_ITS | Encounter Summary ---
Author Organization [facility] Address [address] [place] [address] Care Team Providers Care Tomb Maker Helper Name Role Phone Meghan Beach KHALIDA Primary Care Provider [phone] Encounter Details Date Type Department Care Team (Late st Contact Info) Description 01/20/2024 Telephone Obstetrics & Gynecology [address] [place] [address] Abiel Berrios MD [address] [place] [address] Social History Tobacco Use Types Packs/Day Years Used Date Smoking Tobacco: Never Assessed PHQ-2 Answer Date Recorded Patient Health Questionnaire-2 Score 0 01/19/2024 Estimated Date of Delivery Comme nts Yes 04/02/2024 Sex and Gender Information Value Date Recorded Sex Assigned at Female 01/09/2024 8:09 AM EDT Legal Sex Female 11:07 AM EST Gender Identity Female 01/09/2024 8:09 AM EDT Sexual Orientation Straight 01/09/2024 8: 09 AM EDT documented as of this encounter Miscellaneous Notes * Telephone Encounter - Addie Weinberg - 01/21/2024 8:04 AM EDT Sent documented in this encounter Plan of Treatment Upcoming Encounters Date Type Department Care Team (Late st Contact Info) Description 04/08/2024 11:00 AM EST Routine [facility] [address] [place] [address] Abiel Berrios MD [address] [place] [address] documented as of this encounter Visit Diagnoses Not on filedocumented in this encounter Additional Health Concerns Assessment Noted Time A fall risk assessment has been complete d for the patient 01/19/2024 4:02 PM EDT A Body Mass Index follow-up plan has been documented for the patient 01/19/2024 4:43 PM EDT documented as of this encounter Care Teams Tomb Maker Helper Relationship Specialty Start Date End Date Meghan Beach APRN [address] [facility] [place] [address] PCP - General 04/03/22 documented as of this encounter
--- OUTSIDE RECORDS SUMMARY | 2024-03-26 19:33 | XMS_ITS | Encounter Summary ---
Author Organization [facility] Address [address] [place] [address] Care Team Providers Care Plastic Sewer Name Role Phone Meghan Beach KHALIDA Primary Care Provider [phone] Reason for Visit * Reason Comments Ultrasound Posterior, vertex, growth 54%, ac 58%, efw [id number], fhr- 158, rosalva 15.8cm, anatomy continues to be VERY limited by materernakl Habitus and advanced GA Encounter Details Date Type Department Care Team (Late st Contact Info) Description 02/24/2024 3:00 PM EST Routine Obstetrics & Gynecology [address] [place] [address] Abiel Berrios MD [address] [place] [address] Chronic hypertension complicating or reason for care during , third trimester (Primary Dx); 34 weeks gestation of ; Previous section complicating ; Diet controlled gestational diabetes mellitus (GDM) in third trimester; AMA (advanced maternal age) multigravida 35+, third trimester Social History Tobacco Use Types [...] Sign Reading Time Taken Comments Blood Pressure 175/109 02/24/2024 4:11 PM EST Pulse 78 02/24/2024 4:06 PM EST Temperature 38.3 ??C (100.9 ??F) 02/24/2024 4:[address] Respiratory Rate - - Oxygen Saturation 100% 02/24/2024 4:06 PM EST Inhaled Oxygen Concentration - - Weight 163 kg (360 lb 0.2 oz) 02/24/2024 4:06 PM EST Height - - Body Mass Index 58.11 02/12/2024 9:25 AM EDT documented in this encounter Miscellaneous Notes * Progress Notes - Abiel Berrios MD - 02/24/2024 3:00 PM EST Subjective Chief Complaint Patient presents with Ultrasound Posterior, vertex, growth 54%, ac 58%, efw [id number], fhr- 158, rosalva 15.8cm, anatomy continues to be VERY limited by materernakl Habitus and advanced GA Whitley Whitfield is a 33 y.o. at 34w4d with a working estimated date of delivery of 04/02/2024, Alternate ALBERTO Entry who presents for a routine visit. She denies vaginal bleeding, leakage of fluid, or contractions. Some blurry vision. Her is complicated by: CHTN GDM A1 H/O LTCS x 2 AMA The following portions of the chart were reviewed this encounter and updated as appropriate: Meds Objective Physical Exam Weight: 163 kg (360 lb 0.2 oz) Expected Total Weight Gain: 5 kg (11 lb)-9 kg (19 lb) Pregravid BMI: 59.81 BP: (!) 175/109 Heart Rate: +us Presentation: Vertex Labs Urine dip: 2+ PTN HGB (g/dL) Date/Time Value 01/27/2024 1503 11.5 HCT (%) Date/Time Value 01/27/2024 1503 34.5 No results found for: PAPPA , AFP , HCG , ESTRIOL , INHBA GTT - Fasting (mg/dL) Date/Time Value 02/03/2024 0816 127 (H) GTT - 1 Hour (mg/dL) Date/Time Value 02/03/2024 0921 268 (H) GTT - 2 Hour (mg/dL) Date/Time Value 02/03/2024 1024 197 (H) GTT - 3 Hour (mg/dL) Date/Time Value 02/03/2024 1121 111 Imaging Growth US - VTX - BPP 11/26 - ROSALVA 15+ cm Assessment/Plan Diagnoses and all orders for this visit: Chronic hypertension complicating or reason for care during , third trimester - Urine dip - Urine culture 34 weeks gestation of Previous section complicating Diet controlled gestational diabetes mellitus (GDM) in third trimester AMA (advanced maternal age) multigravida 35+, third trimester Continue vitamin. Labs reviewed. GBS at 36 weeks Expected mode of delivery RLTCS To L&D now for further evaluation re: Pre-E vs uncontrolled HTN documented in this encounter Plan of Treatment Upcoming Encounters Date Type Department Care Team (Late st Contact Info) Description 04/08/2024 11:00 AM EST Routine Obstetrics & Gynecology [address] [place] [address] Abiel Berrios MD [address] [place] [address] documented as of this encounter Goals Goal Patient Goal Type Associated Problems Recent Progress Patient-Stated? Author Delayed Delivery Care Plan CPM S22 PP LABOR (OBSTETRICS) No Open Scheduling, Background documented as of this encounter Procedures Procedure Name Priority Date/Time Associated Diagnosis Comments POCT URINALYSIS DIPSTICK Routine 02/24/2024 4:09 PM EST Chronic hypertension complicating or reason for care during , third trimester URINE CULTURE Routine 02/24/2024 4:09 PM EST Chronic hypertension complicating or reason for care during , third trimester documented in this encounter Results * (ABNORMAL) Urine culture (02/24/2024 4:09 PM EST) Culture >=100,000 CFU/mL Escherichia coli(A) LYN 02/26/2024 2:34 PM EST [facility] Comment: This isolate has been identified using the FDA Approved [employer] [place] System Edited result: Previously reported as Gram Negative Isidro on 02/25/2024 at 1503 EST. Urine Urine specimen obtained by clean catch procedure / Unknown Non-blood Collection / Unknown 02/24/2024 4:09 PM EST 02/24/2024 5:51 PM EST Narrative Organism Antibiotic Method Susceptibility Escherichia coli Amikacin LYN <=8 ug/ml: Susceptible Escherichia coli Ampicillin LYN <=4 ug/ml: Susceptible Escherichia coli Ampicillin/Sulbactam LYN 4/2 ug/ml: Susceptible Escherichia coli Aztreonam LYN <=2 ug/ml: Susceptible Escherichia coli Cefazolin LYN <=1 ug/ml: Susceptible Comment:Breakpoints when cefazolin is used for therapy of uncomplicated UTIs due to E. coli, K. pneumoniae, and P. mirabilis. Breakpoints are based on a dosage regimen of 1 g administered every 12 hours. Cefazolin should be used as a surrogate to predict susceptibility for all oral cephalosporins (including cephalexin and cefdinir)??to E. coli, Klebsiella spp.,??and P. mirabilis??isolated from the urine. Escherichia coli Cefepime LYN <=0.5 ug/ml: Susceptible Escherichia coli Ceftriaxone LYN <=1 ug/ml: Susceptible Escherichia coli Ciprofloxacin LYN <=0.25 ug/ml: Susceptible Escherichia coli Ertapenem LYN <=0.25 ug/ml: Susceptible Escherichia coli Gentamicin LYN <=2 ug/ml: Susceptible Escherichia coli Levofloxacin LYN <=0.25 ug/ml: Susceptible Escherichia coli Meropenem LYN <=0.5 ug/ml: Susceptible Escherichia coli Nitrofurantoin LYN <=16 ug/ml: Susceptible Escherichia coli Piperacillin/Tazobactam LYN <=2/4 ug/ml: Susceptible Escherichia coli Tetracycline LYN <=2 ug/ml: Susceptible Escherichia coli Tobramycin LYN <=2 ug/ml: Susceptible Escherichia coli Trimethoprim/Sulfamethoxazole LYN <=0.5/9.5 ug/ml: Susceptible us Abiel Berrios MD LAB MICROBIOLOGY - GENERAL [facility] Final Result [facility] [address] [place] [address] * (ABNORMAL) Urine dip (02/24/2024 4:09 PM EST) POCT Urine Color Other POCT Urine Clarity Cloudy POCT Glucose Urine Negative Negative mg/dL POCT Bilirubin, Urine Small(A) Negative POCT Ketones, Urine 15(A) Negative mg/dL POCT Specific [place], Urine >=1.030 POCT Blood, Urine Negative Negative POCT pH, Urine 6.0 5.0 to 8.0 POCT Protein, Urine +2(A) Negative mg/dL POCT Urobilinogen, Urine 0.2 0.2, 1 E.U./dL POCT Nitrite, Urine Positive(A) Negative POCT Leukocyte Esterase, Urine Small(A) Negative Test Strip Lot Number [id number] Test Strip Lot Expiration 07/25/2023 Urine Urine specimen obtained by clean catch procedure / Unknown 02/24/2024 4:09 PM EST us Abiel Berrios MD POINT OF CARE TEST ENTER/EDIT O RDERABLES Final Result documented in this encounter Visit Diagnoses Diagnosis Chronic hypertension complicating or reason for care during , third trimester- Primary 34 weeks gestation of Previous section complicating Diet controlled gestational diabetes mellitus (GDM) in third trimester AMA (advanced maternal age) multigravida 35+, third trimester documented in this encounter Additional Health Concerns Active Problems Noted Date Diagnosed Date CPM S22 PP LABOR (OBSTETRICS) 02/05/2024 Assessment Noted Time A fall risk assessment has been complete d for the patient 02/24/2024 4:07 PM EST A Body Mass Index follow-up plan has been documented for the patient 02/24/2024 4:18 PM EST documented as of this encounter Care Teams Plastic Sewer Relationship Specialty Start Date End Date Meghan Beach APRN [address] [place] [address] [place] [address] PCP - General 04/03/22 documented as of this encounter
--- OUTSIDE RECORDS SUMMARY | 2024-03-26 19:33 | XMS_ITS | Encounter Summary ---
Author Organization [facility] Address [address] [place] [address] Care Team Providers Care Top Trimmer Name Role Phone Meghan Beach KHALIDA Primary Care Provider [phone] Reason for Visit * Reason Comments NST/BPP Visit 32w3d FAWAD watson FMNo VB/Ghada CTX/cramping Encounter Details Date Type Department Care Team (Late st Contact Info) Description 02/09/2024 3:40 PM EDT NST Obstetrics & Gynecology [address] [place] [address] Abiel Berrios MD [address] [place] [address] 32 weeks gestation of (Primary Dx); Chronic hypertension complicating or reason for care during , third trimester; Previous section complicating ; Diet controlled gestational diabetes mellitus (GDM) in third trimester; AMA (advanced maternal age) multigravida 35+, third trimester Social History Tobacco Use Types Packs/Day Years Used Date Smoking Tobacco: Never Assessed PHQ-2 Answer Date Recorded Patient Health Questionnaire-2 Score 0 02/09/2024 Estimated Date of Delivery Comme nts Yes 04/02/2024 Sex and Gender Information Value Date Recorded Sex Assigned at Female 01/09/2024 8:09 AM EDT Legal Sex Female 11:07 AM EST Gender Identity Female 01/09/2024 8:09 AM EDT Sexual Orientation Straight 01/09/2024 8: 09 AM EDT documented as of this encounter Last Filed Vital Signs Vital Sign Reading Time Taken Comments Blood Pressure 129/82 02/09/2024 4:09 PM EDT Pulse 91 02/09/2024 4:09 PM EDT Temperature - - Respiratory Rate - - Oxygen Saturation 97% 02/09/2024 4:09 PM EDT Inhaled Oxygen Concentration - - Weight 165 kg (362 lb 14 oz) 02/09/2024 4:09 PM EDT Height 167.6 cm (5' 6 ) 02/09/2024 4:09 PM EDT Body Mass Index 58.57 02/09/2024 4:09 PM EDT documented in this encounter Miscellaneous Notes * Procedures - Abiel Berrios MD - 02/09/2024 4:38 PM EDT 02/09/24 1637 Non-Stress Baby A Reason for Non-Stress Test [...] Progress Notes - Abiel Berrios MD - 02/09/2024 3:40 PM EDT Subjective Chief Complaint Patient presents with NST/BPP Visit 32w3d FAWAD NST Endorses FM No VB/LOF No CTX/cramping Whitley Whitfield is a 33 y.o. at 32w3d with a working estimated date of delivery of 04/02/2024, Alternate ALBERTO Entry who presents for a routine visit. She denies vaginal bleeding, leakage of fluid, decreased movements, or contractions. BG checks OK Her is complicated by: CHTN AMA H/O LTCS GDM A1 The following portions of the chart were reviewed this encounter and updated as appropriate: Meds Objective Physical Exam Weight: 165 kg (362 lb 14 oz) Expected Total Weight Gain: 5 kg (11 lb)-9 kg (19 lb) Pregravid BMI: 59.81 BP: 129/82 Heart Rate: NST Labs Urine dip: NA HGB (g/dL) Date/Time Value 01/27/2024 1503 11.5 [...] Diagnoses and all orders for this visit: 32 weeks gestation of - respiratory syncytial virus (Abrysvo) injection vaccine 0.5 mL Chronic hypertension complicating or reason for care during , third trimester Previous section complicating Diet controlled gestational diabetes mellitus (GDM) in third trimester AMA (advanced maternal age) multigravida 35+, third trimester Other orders - Vit-Fe Fumarate-FA ( Vitamins) 28-0.8 MG tablet; Take 1 tablet by mouth 1 (one) time each day. Continue vitamin. Labs reviewed. GBS at 36 weeks Expected mode of delivery RLTCS Labetalol + Procardia + bASA BG checks RSV done today Follow up 2x/week for a routine visit w/ NSTs. documented in this encounter Plan of Treatment Upcoming Encounters Date Type Department Care Team (Late st Contact Info) Description 04/08/2024 11:00 AM EST Routine [facility] [address] [place] [address] Abiel Berrios MD [address] [place] [address] documented as of this encounter Goals Goal Patient Goal Type Associated Problems Recent Progress Patient-Stated? Author Delayed Delivery Care Plan CPM S22 PP LABOR (OBSTETRICS) No Open Scheduling, Background documented as of this encounter Visit Diagnoses Diagnosis 32 weeks gestation of - Primary Chronic hypertension complicating or reason for care during , third trimester Previous section complicating Diet controlled gestational diabetes mellitus (GDM) in third trimester AMA (advanced maternal age) multigravida 35+, third trimester documented in this encounter Additional Health Concerns Active Problems Noted Date Diagnosed Date CPM S22 PP LABOR (OBSTETRICS) 02/05/2024 Assessment Noted Time A fall risk assessment has been complete d for the patient 02/09/2024 4:10 PM EDT A Body Mass Index follow-up plan has been documented for the patient 02/03/2024 11:36 AM EDT documented as of this encounter Care Teams Top Trimmer Relationship Specialty Start Date End Date Meghan Beach APRN [address] [place] [address] PCP - General 04/03/22 documented as of this encounter
--- OUTSIDE RECORDS SUMMARY | 2024-03-26 19:33 | XMS_ITS | Encounter Summary ---
Author Organization [facility] Address [address] [place] [address] Care Team Providers Care Master Coastal Waters Name Role Phone Meghan Beach KHALIDA Primary Care Provider [phone] Reason for Visit * Reason Onset Date Comments HCN Clinical Concern/Question 03/03/2024 pr charles Encounter Details Date Type Department Care Team (Late st Contact Info) Description 03/03/2024 Telephone Obstetrics & Gynecology [address] [place] [address] Abiel Berrios MD [address] [place] [address] [facility] Clinical Concern/Question (proof) Social History Tobacco Use Types Packs/Day Years [...] encounter Miscellaneous Notes * Telephone Encounter - Shannon Magana RN - 03/03/2024 11:48 AM EST RN returned pt's call. RN sent letter with estimated delivery date and current gestational age to pt's No [employer] per pt request. Pt expressed understanding. * Telephone Encounter - Jitendra Kwon - 03/03/2024 10:47 AM EST Patient Phone Message Reason for Call:needing note with proof of and how far she is sent to [employer] for access Best contact number and optimal time of day to reach caller: Note: Please do not reply to this message. Follow-up communication and further actions as a result of this message need to be communicated with the patient directly, if the patient is not active onMyChart. If the patient is active on MyChart, they will receive notification of the communication/outcome via [employer]. documented in this encounter Plan of Treatment Upcoming Encounters Date Type Department Care Team (Late st Contact Info) Description 04/08/2024 11:00 AM EST Routine [facility] [address] [place] [address] Abiel Berrios MD [address] [place] [address] documented as of this encounter [...] has been complete d for the patient 03/01/2024 1:49 PM EST A Body Mass Index follow-up plan has been documented for the patient 02/24/2024 4:18 PM EST documented as of this encounter Care Teams Master Coastal Waters Relationship Specialty Start Date End Date Meghan Beach APRN [address] [place] [address] [place] [address] PCP - General 04/03/22 documented as of this encounter
--- OUTSIDE RECORDS SUMMARY | 2024-03-26 19:33 | XMS_ITS | Encounter Summary ---
Author Organization [facility] Address [address] [place] [address] Care Team Providers Care Auto Garage Mechanic Name Role Phone Meghan Beach APRN Primary Care Provider Encounter Details Date Type Department Care Team (Late st Contact Info) Description 02/24/2024 Orders Only External Location [address] [place] [address] Abiel Berrios MD [address] [place] [address] Social History Tobacco Use Types [...] Encounters Date Type Department Care Team (Late Contact Info) Description 04/08/2024 11:00 AM EST Routine [facility] [address] [place] [address] Abiel Berrios MD [address] [place] [address] documented as of this encounter Goals Goal Patient Goal Type Associated Problems Recent Progress Patient-Stated? Author Delayed Delivery Care Plan CPM S22 PP LABOR (OBSTETRICS) No Open Scheduling, Background documented as of this encounter Procedures Procedure Name Priority Date/Time Associated Diagnosis Comments CBC W/O DIFFERENTIAL Routine 03/13/2024 6:51 AM EST URINE TOTAL PROTEIN/CREATININE ([facility]) Routine 03/12/2024 5:30 AM EST ASPARTATE AMINOTRANSFERASE, PLASMA Routine 03/12/2024 5:30 AM EST ALANINE AMINOTRANSFERASE, PLASMA Routine 03/12/2024 5:30 AM EST CBC WITH AUTO DIFFERENTIAL Routine 03/12/2024 5:30 AM EST TYPE AND SCREEN Routine 03/12/2024 5:30 AM EST URIC ACID, PLASMA Routine 03/12/2024 5:3 0 AM EST LACTATE DEHYDROGENASE, PLASMA Routine 03/12/2024 5:30 AM EST CREATININE, SERUM Routine 03/12/2024 5:3 0 AM EST ASPARTATE AMINOTRANSFERASE, PLASMA Routine 02/24/2024 5:07 PM EST ALANINE AMINOTRANSFERASE, PLASMA Routine 02/24/2024 5:07 PM EST CBC W/O DIFFERENTIAL Routine 02/24/2024 5:07 PM EST TYPE AND SCREEN Routine 02/24/2024 5:07 PM EST URIC ACID, PLASMA Routine 02/24/2024 5:0 7 PM EST LACTATE DEHYDROGENASE, PLASMA Routine 02/24/2024 5:07 PM EST CREATININE, SERUM Routine 02/24/2024 5:0 7 PM EST URINE TOTAL PROTEIN/CREATININE ([facility]) Routine 02/24/2024 5:00 PM EST URINE CULTURE Routine 02/24/2024 5:00 PM EST documented in this encounter Results * (ABNORMAL) CBC W/O Differential (03/13/2024 6:51 AM EST) External WBC 10.1 4.0 - 10.5 K/ul [facility] External Red Blood Cell (RBC) 3.3(L) 4.2 - 6.4 M/mm3 [facility] External Hemoglobin 9.9(L) 12.5 - 16.0 gm/dl [facility] External Hematocrit 29.8(L) 37.0 - 47.0 % [facility] External MCV 90.3 78 - [address] [facility] External MCH 30.0 27 - [address] [facility] External MCHC 33.2 32 - 36 g/dl [facility] External RDW 15.6(H) 11.5 - 14.0 % [facility] External Platelets 200 150 - 450 K/ul [facility] External MPV 10.1(H) 6 - 9.[address] [facility] External Manual Differential NO [facility] 03/13/2024 6:51 AM EST 03/13/2024 6:51 AM EST us Abiel Berrios MD LAB BLOOD ORDERABLES Final Resu lt [facility] * Type and Screen (03/12/2024 5:30 AM EST) External History Check Completed [facility] External ABO/Rh O POSITIVE [facility] Comment:performed by [facility] External Antibody Screen NEGATIVE [facility] Comment:performed by [facility] External Status Information Completed [facility] 03/12/2024 5:30 AM EST 03/12/2024 5:41 AM EST Result Saw Berrios MD LAB BLOOD BANK TEST ORDERABLES Final Result Performing Organization Address [facility] [address] [facility] Number [facility] * Creatinine, serum (03/12/2024 5:30 AM EST) External Creatinine Blood 0.6 0.6 - 1.3 mg/dL [facility] External Estimated GFR 120 60- mlpermin [facility] Comment: GFR LIMITATION: ? The eGFR [...] ORDERABLES Final Resu lt Performing Organization Address [facility] [address]/[facility] Phone Number [facility] * Lactate Dehydrogenase, Plasma (03/12/2024 5:30 AM EST) External LDH Lactate Dehydrogenase 158 0 - 190 U/L [facility] 03/12/2024 5:30 AM EST 03/12/2024 5:41 AM EST Result Saw Berrios MD LAB BLOOD ORDERABLES Final Resu lt Performing Organization Address [facility] [address]/[facility] Phone Number [facility] * Uric Acid, Plasma (03/12/2024 5:30 AM EST) External Uric Acid 5.4 2.6 - 6.0 mg/dL [facility] 03/12/2024 5:30 AM EST 03/12/2024 5:41 AM EST Result Saw Berrios MD LAB BLOOD ORDERABLES Final Resu lt Performing Organization Address [facility] [address]/[facility] Phone Number [facility] * Aspartate Aminotransferase, Plasma (03/12/2024 5:30 AM EST) External AST (SGOT) 16 0 - 37 U/L [facility] 03/12/2024 5:30 AM EST 03/12/2024 5:41 AM EST Result Saw Berrios MD LAB BLOOD ORDERABLES Final Resu lt Performing Organization Address [facility] Phone Number [facility] * Alanine Aminotransferase, Plasma (03/12/2024 5:30 AM EST) External ALT (SGPT) 14 0 - 65 U/L [facility] 03/12/2024 5:30 AM EST 03/12/2024 5:41 AM EST Result Saw Berrios MD LAB BLOOD ORDERABLES Final Resu lt Performing Organization Address [facility] [address]/[facility] Phone Number [facility] * Urine Total Protein/Creatinine ([facility]) (03/12/2024 5:30 AM EST) External Creatinine Urine 228.2 MG/DL [facility] External Protein, Ur Random 65.5 6.0 - 250.0 mg/dL [facility] 03/12/2024 5:30 AM EST 03/12/2024 5:41 AM EST Result Saw Berrios MD LAB URINE ORDERABLES Final Resu lt Performing Organization Address [facility]/State/ZIP Co de Phone Number [facility] * (ABNORMAL) CBC and Differential (03/12/2024 5:30 AM EST) External WBC 13.2(H) 4.0 - 10.5 K/ul [facility] External Red Blood Cell (RBC) 4.1(L) 4.2 - 6.4 M/mm3 [facility] External Hemoglobin 12.1(L) 12.5 - 16.0 gm/dl [facility] External Hematocrit 35.8(L) 37.0 - 47.0 % [facility] External MCV 87.3 78 - [address] [facility] External MCH 29.5 27 - [address] [facility] External MCHC 33.8 32 - 36 g/dl [facility] External RDW 15.1(H) 11.5 - 14.0 % [facility] External Platelets 272 150 - 450 K/ul [facility] External MPV 10.4(H) 6 - 9.[address] [facility] External Neutrophils % 79.2(H) 43 - 65 % [facility] External Lymphocyte % 14.1(L) 20.5 - 45.5 % [facility] External Monocyte % 3.9(L) 5.5 - 11.7 % [facility] External Eosinophil% 2.0 0.9 - 2.9 % [facility] External Basophil % 0.3 0.2 - 1.0 % [facility] External Immature Granulocyte% 0.5 0.0 - 0.8 % [facility] External Nucleated RBC % 0.0 % [facility] External Neutrophil# 10.5(H) 2.2 - 4.8 K/uL [facility] External Lymphocyte# 1.9 1.3 - 2.9 CELL/MCL [facility] External Monocyte# 0.5 0.3 - 0.8 CELL/MCL [facility] External Eosinophils# 0.3(H) 0 - 0.2 CELL/MCL [facility] External Baso# 0.0 0.0 - 1.0 CELL/MCL [facility] External Immature Granulocyte Abs 0.07 K/ul [facility] External Nucleated RBC Absolute 0.00 K/uL [facility] External Manual Differential NO [facility] 03/12/2024 5:30 AM EST 03/12/2024 5:41 AM EST Result Saw Berrios MD LAB BLOOD ORDERABLES Final Resu lt Performing Organization Address [facility] Phone Number [facility] * Type and Screen (02/24/2024 5:07 PM EST) External History Check Completed [facility] External ABO/Rh O POSITIVE [facility] External Antibody Screen NEGATIVE [facility] External Status Information Completed [facility] 02/24/2024 5:07 PM EST 02/24/2024 5:31 PM EST Result Saw Berrios MD LAB BLOOD BANK TEST ORDERABLES Final Result Performing Organization Address [facility] [address]/[facility] Phone Number [facility] * Creatinine, serum (02/24/2024 5:07 PM EST) External Creatinine Blood 0.6 0.6 - 1.3 mg/dL [facility] External Estimated GFR 120 60- mlpermin [facility] Comment: GFR LIMITATION: ? The eGFR equation CKD-EPI 2020 is not applicable for pediatric patients or greater than 90 years of age. The following conditions may alter the GFR result: extremes in body size, malnutrition or obesity, skeletal muscle disease, paraplegia or quadriplegia, ??vegetarian diet or rapidly changing kiney function. 02/24/2024 5:07 PM EST 02/24/2024 5:31 PM EST Result Saw Berrios MD LAB BLOOD ORDERABLES Final Resu lt Performing Organization Address [facility] Phone Number [facility] * Lactate Dehydrogenase, Plasma (02/24/2024 5:07 PM EST) External LDH Lactate Dehydrogenase 152 0 - 190 U/L [facility] 02/24/2024 5:07 PM EST 02/24/2024 5:31 PM EST Result Saw Berrios MD LAB BLOOD ORDERABLES Final Resu lt Performing Organization Address [facility] [address]/[facility] Phone Number [facility] * Uric Acid, Plasma (02/24/2024 5:07 PM EST) External Uric Acid 5.9 2.6 - 6.0 mg/dL [facility] 02/24/2024 5:07 PM EST 02/24/2024 5:31 PM EST Result Saw Berrios MD LAB BLOOD ORDERABLES Final Resu lt Performing Organization Address [facility] [address]/[facility] Phone Number [facility] * Aspartate Aminotransferase, Plasma (02/24/2024 5:07 PM EST) External AST (SGOT) 26 0 - 37 U/L [facility] 02/24/2024 5:07 PM EST 02/24/2024 5:31 PM EST Result Saw Berrios MD LAB BLOOD ORDERABLES Final Resu lt Performing Organization Address [facility] [address]/[facility] Co hi Phone Number [facility] * Alanine Aminotransferase, Plasma (02/24/2024 5:07 PM EST) External ALT (SGPT) 20 0 - 65 U/L [facility] 02/24/2024 5:07 PM EST 02/24/2024 5:31 PM EST Result Saw Berrios MD LAB BLOOD ORDERABLES Final Resu lt Performing Organization Address [facility] Phone Number [facility] * (ABNORMAL) CBC W/O Differential (02/24/2024 5:07 PM EST) External WBC 10.3 4.0 - 10.5 K/ul [facility] External Red Blood Cell (RBC) 3.8(L) 4.2 - 6.4 M/mm3 [facility] External Hemoglobin 11.3(L) 12.5 - 16.0 gm/dl [facility] External Hematocrit 33.1(L) 37.0 - 47.0 % [facility] External MCV 87.1 78 - [address] [facility] External MCH 29.7 27 - [address] [facility] External MCHC 34.1 32 - 36 g/dl [facility] External RDW 15.1(H) 11.5 - 14.0 % [facility] External Platelets 262 150 - 450 K/ul [facility] External MPV 10.3(H) 6 - 9.[address] [facility] External Manual Differential NO [facility] 02/24/2024 5:07 PM EST 02/24/2024 5:31 PM EST us Abiel Berrios MD LAB BLOOD ORDERABLES Final Resu lt Performing Organization Address [facility] [address]/[facility] Phone Number [facility] * Urine Culture (02/24/2024 5:00 PM EST) External Culture Specimen NO.: ?[id number] ? Exam Status: ?? Final ? Procedure: [...] ? Trimeth/Sulfa ?<=2/38 ? S ?S ? [facility] External Comments AAC 2024-02-25 701 >100,000 [place] Count Gram Negative Rods [facility] 02/24/2024 5:00 PM EST 02/24/2024 7:45 PM EST Result Saw Berriso MD LAB MICROBIOLOGY - [facility]AL [facility] Final Result Performing Organization Address [facility] [address]/[facility] Co de Phone Number [facility] * Urine Total Protein/Creatinine ([facility]) (02/24/2024 5:00 PM EST) External Creatinine Urine 394.0 MG/DL [facility] External Protein, Ur Random 87.4 6.0 - 250.0 mg/dL [facility] 02/24/2024 5:00 PM EST 02/24/2024 6:51 PM EST Result Saw Berrios MD LAB URINE ORDERABLES Final Resu lt Performing Organization Address City/[facility] [address]/ZIP Co de Phone Number [facility] documented in this encounter Visit Diagnoses Not on filedocumented [...] documented as of this encounter Care Teams Auto Garage Mechanic Relationship Specialty Start Date End Date Meghan Beach APRN [address] [place] [address] [place] [address] PCP - General 04/03/22 documented as of this encounter
--- OUTSIDE RECORDS SUMMARY | 2024-03-26 19:33 | XMS_ITS | Encounter Summary ---
Author Organization [facility] Address [address] [place] [address] Care Team Providers Care Formula Clerk Name Role Phone Meghan Beach KHALIDA Primary Care Provider Reason for Visit * Reason Comments NST/BPP Visit 32w6d FAWAD watson FMNo VB/Ghada CTX/cramping Encounter Details Date Type Department Care Team (Late st Contact Info) Description 02/12/2024 9:20 AM EDT [facility] Obstetrics [facility] Gynecology [address] [place] [address] Abiel Berrios MD [address] [place] [address] 32 weeks gestation of (Primary Dx); Chronic hypertension complicating or reason for care during , third trimester; Previous section complicating ; Diet controlled gestational diabetes mellitus (GDM) in third trimester; AMA (advanced maternal age) multigravida 35+, third trimester Social History Tobacco Use Types Packs/Day Years Used Date Smoking Tobacco: Never Assessed PHQ-2 Answer Date Recorded Patient Health Questionnaire-2 Score 0 02/12/2024 Estimated Date of Delivery Comme nts Yes 04/02/2024 Sex and Gender Information Value Date Recorded Sex Assigned at Female 01/09/2024 8:09 AM EDT Legal Sex Female 11:07 AM EST Gender Identity Female 01/09/2024 8:09 AM EDT Sexual Orientation Straight 01/09/2024 8: 09 AM EDT documented as of this encounter Last Filed Vital Signs Vital Sign Reading Time Taken Comments Blood Pressure 127/84 02/12/2024 9:25 AM EDT Pulse 96 02/12/2024 9:25 AM EDT Temperature 36.7 ??C (98.1 ??F) 02/12/2024 9:25 AM ED T Respiratory Rate - - Oxygen Saturation 99% 02/12/2024 9:25 AM EDT Inhaled Oxygen Concentration - - Weight 162 kg (357 lb 12.9 oz) 02/12/2024 9:25 A M EDT Height 167.6 cm (5' 6 ) 02/12/2024 9:25 AM EDT Body Mass Index 57.75 02/12/2024 9:25 AM EDT documented in this encounter Miscellaneous Notes * Procedures - Abiel Berrios MD - 02/12/2024 10:00 AM EDT 02/12/24 0959 Non-Stress Baby A Reason for Non-Stress Test [...] Progress Notes - Abiel Berrios MD - 02/12/2024 9:20 AM EDT Subjective Chief Complaint Patient presents with NST/BPP Visit 32w6d FAWAD NST Endorses FM No VB/LOF No CTX/cramping Whitley Whitfield is a 33 y.o. at 32w6d with a working estimated date of delivery of 04/02/2024, Alternate ALBERTO Entry who presents for a routine visit. She denies vaginal bleeding, leakage of fluid, decreased movements, or contractions. BG checks OK. Her is complicated by: GDM A1 CHTN H/O LTCS BMI >50 The following portions of the chart were reviewed this encounter and updated as appropriate: Meds Objective Physical Exam Weight: 162 kg (357 lb 12.9 oz) Expected Total Weight Gain: 5 kg (11 lb)-9 kg (19 lb) Pregravid BMI: 59.81 BP: 127/84 Heart Rate: NST Labs Urine dip: NA [...] for this visit: 32 weeks gestation of Chronic hypertension complicating or reason for care during , third trimester Previous section complicating Diet controlled gestational diabetes mellitus (GDM) in third trimester AMA (advanced maternal age) multigravida 35+, third trimester Continue vitamin. Labs reviewed. GBS at 36 weeks BG checks Labetalol 200 TID + bASA Expected mode of delivery RLTCS Follow up 2x/week for a routine visit w/ NSTs. documented in this encounter Plan of Treatment Upcoming Encounters Date Type Department Care Team (Late st Contact Info) Description 04/08/2024 11:00 AM EST Routine [facility] [address] [place] [address] Abiel Berrios MD [address] [place] [address] documented as of this encounter [...] has been complete d for the patient 02/12/2024 9:26 AM EDT A Body Mass Index follow-up plan has been documented for the patient 02/03/2024 11:36 AM EDT documented as of this encounter Care Teams Formula Clerk Relationship Specialty Start Date End Date Meghan Beach APRN [address] [place] [address] [place] [address] PCP - General 04/03/22 documented as of this encounter
--- OUTSIDE RECORDS SUMMARY | 2024-03-26 19:33 | XMS_ITS | Encounter Summary ---
Author Organization [facility] Address [address] [place] [address] Care Team Providers Care Mmi Teacher Name Role Phone Meghan Beach KHALIDA Primary Care Provider [phone] Encounter Details Date Type Department Care Team (Latest Contact Info) Description 02/12/2024 Travel Social History Tobacco Use Types Packs/Day [...] Routine Obstetrics & Gynecology [address] [place] [address] Abiel Berrios MD [address] [place] [address] documented as of this encounter [...] documented as of this encounter Care Teams Mmi Teacher Relationship Specialty Start Date End Date Meghan Beach, KHALIDA [address] [place] [address] [place] [address] PCP - General 04/03/22 documented as of this encounter
--- OUTSIDE RECORDS SUMMARY | 2024-03-26 19:33 | XMS_ITS | Encounter Summary ---
Author Organization [facility] Address [address] [place] [address] Care Team Providers Care Records Management Director Name Role Phone Meghan Beach KHALIDA Primary Care Provider [phone] Encounter Details Date Type Department Care Team (Latest Contact Info) Description 03/01/2024 Travel Social History Tobacco Use Types Packs/Day Years Used Date Smoking Tobacco: Never Assessed PHQ-2 Answer Date Recorded Patient Health Questionnaire-2 Score 0 03/01/2024 Estimated Date of Delivery Comme nts [...] Routine Obstetrics & Gynecology [address] [place] [address] Abiel Berrios MD [address] [place] [address] documented as of this encounter [...] documented as of this encounter Care Teams Records Management Director Relationship Specialty Start Date End Date Meghan Beach APRN [address] [place] [address] [place] [address] PCP - General 04/03/22 documented as of this encounter
--- OUTSIDE RECORDS SUMMARY | 2024-03-26 19:33 | XMS_ITS | Encounter Summary ---
Author Organization [facility] Address [address] [place] [address] Care Team Providers Care Cable Puller Name Role Phone Meghan Beach KHALIDA Primary Care Provider Reason for Visit * Reason Comments NST/BPP Visit 35w3d FAWAD NAVNEETTEnjorge s FMNo VB/LOFIntermittent crampingBack and leg pain rates 7/10BP 144/85 recheck 117/74Pre E SS: headache rates 6/10, blurry vision with flashes of light, denies RUQ pain and severe swelling Encounter Details Date Type Department Care Team (Late st Contact Info) Description 03/01/2024 1:40 PM EST NST Obstetrics & Gynecology [address] [place] [address] Alison Egan MD [address] [place] [address] Chronic hypertension complicating or reason [...] Sign Reading Time Taken Comments Blood Pressure 117/74 03/01/2024 1:57 PM EST Pulse 94 03/01/2024 1:47 PM EST Temperature 36.6 ??C (97.9 ??F) 03/01/2024 1:47 PM ES T Respiratory Rate - - Oxygen Saturation 100% 03/01/2024 1:47 PM EST Inhaled Oxygen Concentration - - Weight 164 kg (362 lb 3.5 oz) 03/01/2024 1:47 PM EST Height 167.6 cm (5' 6 ) 03/01/2024 1:47 PM EST Body Mass Index 58.46 03/01/2024 1:47 PM EST documented in this encounter Miscellaneous Notes * Procedures - Alison Egan MD - 03/01/2024 4:52 PM EST 03/01/24 1652 Non-Stress Baby A Reason for Non-Stress Test Advanced maternal age;Hypertension;Diabetes Variability in Waveform for Baby A 6-25 BPM Decelerations in Baby A None Accelerations in Baby A Yes Acoustic Stimulator for Baby A No Baseline Heart Rate for Baby A 145 BPM Uterine Irritability for Baby A No Contractions in Baby A Not present Interpretation of Non-Stress Test Comments on Non-Stress Test reactive $ NST Charge 1 * Progress Notes - Alison Egan MD - 03/01/2024 1:40 PM EST Subjective Chief Complaint Patient presents with NST/BPP Visit 35w3d FAWAD NST Endorses FM No VB/LOF Intermittent cramping Back and leg pain rates 7/10 BP 144/85 recheck 117/74 Pre E SS: headache rates 6/10, blurry vision with flashes of light, denies RUQ pain and severe swelling Whitley Whitfield is a 33 y.o. at 35w3d with a working estimated date of delivery of 04/02/2024, Alternate ALBERTO Entry who presents for a routine visit. She denies vaginal bleeding, leakage of fluid, or contractions. Some headaches and blurry vision. No questions or concerns today. Her is complicated by: CHTN GDM A1 H/O LTCS x 2 AMA The following portions of the chart were reviewed this encounter and updated as appropriate: Objective Physical Exam Weight: 164 kg (362 lb 3.5 oz) Expected Total Weight Gain: 5 kg (11 lb)-9 kg (19 lb) Pregravid BMI: 59.81 BP: 117/74 Heart Rate: NST Labs Urine dip: 30+ protein HGB (g/dL) Date/Time Value 01/27/2024 1503 11.5 External Hemoglobin (gm/dl) Date/Time Value 02/24/2024 1707 11.3 (L) HCT (%) Date/Time Value 01/27/2024 1503 34.5 External Hematocrit (%) Date/Time Value 02/24/2024 1707 33.1 (L) No results found for: PAPPA , AFP , HCG , ESTRIOL , INHBA GTT - Fasting (mg/dL) Date/Time Value 02/03/2024 0816 127 (H) GTT - 1 Hour (mg/dL) Date/Time Value 02/03/2024 0921 268 (H) GTT - 2 Hour (mg/dL) Date/Time Value 02/03/2024 1024 197 (H) GTT - 3 Hour (mg/dL) Date/Time Value 02/03/2024 1121 111 NST - reactive Assessment/Plan Problem List Items Addressed This Visit 35 weeks gestation of Chronic hypertension complicating or reason for care during , third trimester - Primary Relevant Orders POCT Urinalysis Dipstick (Completed) CBC W/O Differential OB Panel Pre-Eclampsia, Plasma Protein, Random, Urine with Creatinine Previous section complicating Multigravida of advanced maternal age in third trimester Gestational diabetes mellitus (GDM) in third trimester Continue vitamin. Labs reviewed. MR x 1 with normal repeat BP. CBC, OB panel, P:C today GBS at 36 weeks Expected mode of delivery RLTCS RTC for 2x weekly NST and routine visit Time Spent: I personally spent a total of 32 minutes on this encounter. This time includes face to face with patient, counseling and discussion and/or coordination of care. documented in this encounter Plan of Treatment Upcoming Encounters Date Type Department Care Team (Late st Contact Info) Description 04/08/2024 11:00 AM EST Routine [facility] [address] [place] [address] Abiel Berrios MD [address] [place] [address] documented as of this encounter Goals Goal Patient Goal Type Associated Problems Recent Progress Patient-Stated? Author Delayed Delivery Care Plan CPM S22 PP LABOR (OBSTETRICS) No Open Scheduling, Background documented as of this encounter Procedures Procedure Name Priority Date/Time Associated Diagnosis Comments POCT URINALYSIS DIPSTICK Routine 03/01/2024 2:26 PM [...] documented in this encounter Results * (ABNORMAL) POCT Urinalysis Dipstick (03/01/2024 2:26 PM EST) POCT Urine Color [place] POCT Urine Clarity Cloudy POCT Glucose Urine Negative Negative mg/dL POCT Bilirubin, Urine Small(A) Negative POCT Ketones, Urine Trace(A) Negative mg/dL POCT Specific [place], Urine 1.025 POCT Blood, Urine Trace(A) Negative POCT pH, Urine 6.0 5.0 to 8.0 POCT Protein, Urine 30(A) Negative mg/dL POCT Urobilinogen, Urine 0.2 0.2, 1 E.U./dL POCT Nitrite, Urine Negative Negative POCT Leukocyte Esterase, Urine Negative Negative Test Strip Lot Number [id number] Test Strip Lot Expiration 07/2024 Urine Urine specimen obtained by clean catch procedure / Unknown 03/01/2024 2:26 PM EST Alison Egan MD POINT OF CARE TEST ENTER /EDIT ORDERABLES Final Result * Protein, Random, Urine with Creatinine (03/01/2024 2:07 PM EST) Protein, Urine 38 mg/dL 03/01/2024 6:34 PM EST [facility] Creatinine, Urine 187 mg/dL 03/01/2024 6:34 PM EST [facility] Protein/Creatin ine Ratio 0.2 mg/mg Creat 03/01/2024 6:34 PM EST [facility] Urine Urine specimen obtained by clean catch procedure / Unknown Non-blood Collection / Unknown 03/01/2024 2:07 PM EST 03/01/2024 6:02 PM EST Alison Egan MD LAB URINE ORDERABLES Fin al Result [facility] [address] [place] [address] * (ABNORMAL) OB Panel Pre-Eclampsia, Plasma (03/01/2024 2:07 PM EST) Uric Acid, Plasma 5.1 3.1 - 7.1 mg/dL 03/01/2024 6:16 PM EST [facility] Creatinine, Plasma 0.52(L) 0.60 - 1.10 mg/dL 03/01/2024 6:16 PM EST [facility] ALT, Plasma 15 10 - 35 U/L 03/01/2024 6:16 PM EST [facility] AST, Plasma 15 10 - 35 U/L 03/01/2024 6:16 PM EST [facility] LDH, Plasma 154 116 - 250 U/L 03/01/2024 6:16 PM EST [facility] eGFRcr 124.4 mL/min/1.7 3m*2 03/01/2024 6:16 PM EST [facility] Comment:Reported eGFRcr in m L/min/1.73m2 is based the CKD-EPI 2020 equation that does not use a race coefficient. Blood Venous blood specimen / Unknown Venipuncture / Unknown 03/01/2024 2:07 PM EST 03/01/2024 5:56 PM EST us Alison Egan MD LAB BLOOD ORDERABLES Fin al Result [facility] [address] [place] [address] * (ABNORMAL) CBC W/O Differential (03/01/2024 2:07 PM EST) WBC Count 8.45 3.70 - 10.30 10*3/uL LAB HEMATOLOGY METHOD 03/01/2024 6:07 PM EST [facility] RBC Count 3.77(L) 3.90 - 5.20 10*6/uL LAB HEMATOLOGY METHOD 03/01/2024 6:07 PM EST [facility] HGB 11.1(L) 11.2 - 15.7 g/dL LAB HEMATOLOGY METHOD 03/01/2024 6:07 PM EST [facility] HCT 34.2 34.0 - 45.0 % LAB HEMATOLOGY METHOD 03/01/2024 6:07 PM EST [facility] Platelet Count 225 155 - 369 10*3/uL LAB HEMATOLOGY METHOD 03/01/2024 6:07 PM EST [facility] MCV 91 79 - 98 fL LAB HEMATOLOGY METHOD 03/01/2024 6:07 PM EST [facility] MCH 29.4 26.0 - 32.0 pg LAB HEMATOLOGY METHOD 03/01/2024 6:07 PM EST [facility] MCHC 32.5 30.7 - 35.5 g/dL LAB HEMATOLOGY METHOD 03/01/2024 6:07 PM EST [facility] RDW 15.4(H) 11.5 - 14.5 % LAB HEMATOLOGY METHOD 03/01/2024 6:07 PM EST [facility] MPV 11.3 8.8 - 12.5 fL LAB HEMATOLOGY METHOD 03/01/2024 6:07 PM EST [facility] nRBC 0.0 <=0.0 per 100 WBCs LAB HEMATOLOGY METHOD 03/01/2024 6:07 PM EST [facility] Blood Venous blood specimen / Unknown Venipuncture / Unknown 03/01/2024 2:07 PM EST 03/01/2024 5:55 PM EST us Alison Egan MD LAB BLOOD ORDERABLES Fin al Result [facility] [address] [place] [address] documented in this encounter Visit Diagnoses Diagnosis Chronic hypertension complicating or reason for care during , third trimester- Primary 35 weeks gestation of Multigravida of advanced maternal age in third trimester Previous section complicating Diet controlled [...] documented as of this encounter Care Teams Cable Puller Relationship Specialty Start Date End Date Meghan Beach APRN [address] [place] [address] [place] [address] PCP - General 04/03/22 documented as of this encounter
--- OUTSIDE RECORDS SUMMARY | 2024-03-26 19:33 | XMS_ITS | Encounter Summary ---
Author Organization [facility] Address [address] [place] [address] Care Team Providers Care Barrel Charrer Name Role Phone Meghan Beach KHALIDA Primary Care Provider [phone] Encounter Details Date Type Department Care Team (Late st Contact Info) Description 01/28/2024 Telephone Obstetrics & Gynecology [address] [place] [address] Abiel Berrios MD [address] [place] [address] Social History Tobacco Use Types [...] encounter Miscellaneous Notes * Telephone Encounter - Teresa Arguello Anabel - 01/28/2024 3:22 PM EDT Clinical Concern/Question Reason for Call: Pt returning call to clinic. Please call. Best contact number: [phone] (mobile) Optimal time of day to reach caller: ANYTIME Additional comments/information from caller: None Note: Please do not reply to this message. Follow-up communication and further actions as a result of this message need to be communicated with the patient directly, if the patient is not active onMyChart. If the patient is active on MyChart, they will receive notification of the communication/outcome via MyChart. documented in this encounter Plan of Treatment Upcoming Encounters Date Type Department Care Team (Late st Contact Info) Description 04/08/2024 11:00 AM EST Routine [facility] [address] [place] [address] Abiel Berrios MD [address] [place] [address] documented as of this encounter Visit Diagnoses Not on filedocumented in this encounter Additional Health Concerns Assessment Noted Time A fall risk assessment has been complete d for the patient 01/27/2024 3:02 PM EDT A Body Mass Index follow-up plan has been documented for the patient 01/27/2024 4:23 PM EDT documented as of this encounter Care Teams Barrel Charrer Relationship Specialty Start Date End Date Meghan Beach APRN [address] [place] [address] [place] [address] PCP - General 04/03/22 documented as of this encounter
--- OUTSIDE RECORDS SUMMARY | 2024-03-26 19:33 | XMS_ITS | Encounter Summary ---
Author Organization [facility] Address [address] [id number] Care Team Providers Care Vacuum Tester Cans Name Role Phone Meghan Beach KHALIDA Primary Care Provider Reason for Visit * Reason Onset Date Comments HCN - Patient Message 01/06/2024 Encounter Details Date Type Department Care Team (Late st Contact Info) Description 01/06/2024 Telephone Obstetrics & Gynecology [address] [place] [address] Abiel Berrios MD [address] [place] [address] HCN - Patient Message Social History Tobacco Use Types Packs/Day Years Used Date Smoking Tobacco: Never Assessed PHQ-2 Answer Date Recorded Patient Health Questionnaire-2 Score 0 01/19/2024 Comments Unknown Sex and Gender Information Value Date Recorded Sex Assigned at Female 01/09/2024 8:09 AM EDT Legal Sex Female 11:07 AM EST Gender Identity Female 01/09/2024 8:09 AM EDT Sexual Orientation Straight 01/09/2024 8: 09 AM EDT documented as of this encounter Miscellaneous Notes * Telephone Encounter - Savanna Chery - 01/06/2024 1:44 PM EDT 01/11 w/ Dr. Berrios * Telephone Encounter - Padma Silva - 01/06/2024 1:00 PM EDT Patient Phone Message Reason for Call:she is needing to schedule intital visit. She is due 04/02/24. She is relocating. Please call Best contact number and optimal time of day to reach caller:[phone] Note: Please do not reply to this message. Follow-up communication and further actions as a result of this message need to be communicated with the patient directly, if the patient is not active onMyChart. If the patient is active on MyChart, they will receive notification of the communication/outcome via [employer]. documented in this encounter Plan of Treatment Upcoming Encounters Date Type Department Care Team (Late st Contact Info) Description 04/08/2024 11:00 AM EST Routine [facility] [address] [place] [address] Abiel Berrios MD [address] [place] [address] documented as of this encounter Visit Diagnoses Not on filedocumented in this encounter Care Teams Vacuum Tester Cans Relationship Specialty Start Date End Date Meghan Beach APRN [address] [place] [id number] PCP - General 04/03/22 documented as of this encounter
--- OUTSIDE RECORDS SUMMARY | 2024-03-26 19:33 | XMS_ITS | Encounter Summary ---
Author Organization [facility] Address [address] [place] [address] Care Team Providers Care School Patrol Name Role Phone Meghan Beach KHALIDA Primary Care Provider [phone] Encounter Details Date Type Department Care Team (Latest Contact Info) Description 04/04/2022 Travel Social History Tobacco Use Types Packs/Day Years Used Date Smoking Tobacco: Never Assessed Comments Unknown Sex and Gender Information Value Date Recorded Sex Assigned at Female 01/09/2024 8:09 AM EDT Legal Sex Female 11:07 AM EST Gender Identity Female 01/09/2024 8:09 AM EDT Sexual Orientation Straight 01/09/2024 8: 09 AM EDT COVID-19 Exposure Response Date Recorded In the last 10 days, have yo u been in contact with someone who was confirmed or suspected to have Coronavirus/COVID-19? Unable to assess 04/04/2022 7:14 AM EST documented as of this encounter Plan of Treatment Upcoming Encounters Date Type Department Care Team (Late st Contact Info) Description 04/08/2024 11:00 AM EST Routine Obstetrics & Gynecology [address] [place] [address] Abiel Berrios MD [address] [place] [address] documented as of this encounter Visit Diagnoses Not on filedocumented in this encounter Care Teams School Patrol Relationship Specialty Start Date End Date Meghan Beach, TEAROOM HOST/HOSTESS [address] [facility] [place] [address] PCP - General 04/03/22 documented as of this encounter
--- OUTSIDE RECORDS SUMMARY | 2024-03-26 19:33 | XMS_ITS | Encounter Summary ---
Author Organization [facility] Address [address] [place] [address] Care Team Providers Care Vendor Management Consultant Name Role Phone Yong Meghan Barron APRN Primary Care Provider [phone] Reason for Referral * Imaging (Routine) - Closed Specialty Diagnoses / Procedures Referred By Kehinde lerner Referred To Contact Diagnoses Chronic hypertension complicating or reason for care during , third trimester Procedures OB US Follow Up Transabdominal Approach Abiel Berrios MD [address] [place] [address] Phone: tel: fax: Referral ID Status Reason Start Date Expiration Date Visits Re quested Visits Authorized [id number] Closed 01/27/2024 07/28/2025 1 1 Reason for Visit * Reason Comments Routine Visit Glucose due at 3: 00 pm; hasn't taken BP meds today, needs BP rechecked, pt stated she drinks 2 to 3 monster energy drinks a dayPosterior, cephalic, growth 50%, ac 26%, efw 3lb9oz, fhr 144, lowell- 20Limited NL anatomy Encounter Details Date Type Department Care Team (Late Contact Info) Description 01/27/2024 3:00 PM EDT Routine Obstetrics & Gynecology [address] [place] [address] Abiel Berrios MD [address] [place] [address] 30 weeks gestation of (Primary Dx); Previous [...] Sign Reading Time Taken Comments Blood Pressure 142/98 01/27/2024 4:09 PM EDT Pulse 87 01/27/2024 3:00 PM EDT Temperature 36.3 ??C (97.4 ??F) 01/27/2024 3:00 PM ED T Respiratory Rate 16 01/27/2024 3:00 PM EDT Oxygen Saturation 95% 01/27/2024 3:00 PM EDT Inhaled Oxygen Concentration - - Weight 167 kg (367 lb 8.1 oz) 01/27/2024 3:00 PM EDT Height 167.6 cm (5' 6 ) 01/27/2024 3:00 PM EDT Body Mass Index 59.32 01/27/2024 3:00 PM EDT documented in this encounter Miscellaneous Notes * Progress Notes - Abiel Berrios MD - 01/27/2024 3:00 PM EDT Subjective Chief Complaint Patient presents with Routine Visit Glucose due at 3:00 pm; hasn't taken BP meds today, needs BP rechecked, pt stated she drinks 2 to 3monster energy drinks a day Posterior, cephalic, growth 50%, ac 26%, efw 3lb9oz, fhr 144, lowell- 20 Limited NL anatomy Whitley Whitfield is a 33 y.o. at 30w4d with a working estimated date of delivery of 04/02/2024, Alternate ALBERTO Entry who presents for a routine visit. She denies vaginal bleeding, leakage of fluid, decreased movements, or contractions. NO Pre-E sxs. Her is complicated by: CHTN - did not take meds today H/O LTCS x 2 AMA The following portions of the chart were reviewed this encounter and updated as appropriate: Meds Objective Physical Exam Weight: 167 kg (367 lb 8.1 oz) Expected Total Weight Gain: 5 kg (11 lb)-9 kg (19 lb) Pregravid BMI: 59.81 BP: (!) 142/98 Heart Rate: +us Presentation: Vertex Labs Urine dip: NA No results found for: HGB , HCT , LABPLAT , ABO , LABRHF , HEPBSAG , HIVAB , RUBELLAIGGQT , GBS No results found for: PAPPA , AFP , HCG , ESTRIOL , INHBA No results found for: GLUF , GLUT1 , QKPQPAN4IW , UHIONXA7KO Imaging Growth US OK - VTX Labetalol 400 given today x 1 Assessment/Plan Diagnoses and all orders for this visit: 30 weeks gestation of - Glucose Challenge - OB Screen 1 hour - CBC Previous section complicating Chronic hypertension complicating or reason for care during , third trimester - labetalol (Normodyne) tablet 100 mg - labetalol (Normodyne) tablet 100 mg - labetalol (Normodyne) tablet 100 mg - labetalol (Normodyne) tablet 100 mg - OB US Follow Up Transabdominal Approach; Future AMA (advanced maternal age) multigravida 35+, third trimester Other orders - NIFEdipine XL (Procardia XL) 30 MG 24 hr tablet; Take 1 tablet (30 mg) by mouth 2 (two) times a day. Do not crush, chew, or split. Continue vitamin. Labs reviewed. GBS at 36 weeks Labetalol 200 TID + add Procardia XL 30 BID Strict Pre-E precs Expected mode of delivery RLTCS Check CBC + Glucola today Follow up in 1 week for a routine visit. documented in this encounter Plan of Treatment Upcoming Encounters Date Type Department Care Team (Late st Contact Info) Description 04/08/2024 11:00 AM EST Routine Obstetrics & Gynecology [address] [place] [address] Abiel Berrios MD [address] [place] [address] documented as of this encounter Procedures Procedure Name Priority Date/Time Associated Diagnosis Comments GLUCOSE CHALLENGE - OB SCREEN Routine 01/27/2024 3:03 PM EDT 30 weeks gestation of CBC W/O DIFFERENTIAL Routine 01/27/2024 3:03 PM EDT 30 weeks gestation of documented in this encounter Results * OB US Follow Up Transabdominal Approach (02/24/2024 3:54 PM EST) Anatomical Region Laterality Modality Body Ultrasound 02/24/2024 3:31 PM EST Impressions 02/24/2024 7:55 PM EST The OB Ultrasound you requested has been resulted. Please navigate to the Imaging tab in [employer] for review. This message has been generated by the interface. Narrative Procedure Note Barbara De La Cruz MD - 02/24/2024 IMPRESSION: The OB Ultrasound you requested has been resulted. Please navigate to theImaging tab in [employer] for review. This message has been generated by theinterface. us Abiel Berrios MD IMG OB US PROCEDURES Final Resu lt * (ABNORMAL) CBC (01/27/2024 3:03 PM EDT) WBC Count 9.21 3.70 - 10.30 10*3/uL LAB HEMATOLOGY METHOD 01/27/2024 6:46 PM EDT [facility] RBC Count 3.84(L) 3.90 - 5.20 10*6/uL LAB HEMATOLOGY METHOD 01/27/2024 6:46 PM EDT [facility] HGB 11.5 11.2 - 15.7 g/dL LAB HEMATOLOGY METHOD 01/27/2024 6:46 PM EDT [facility] HCT 34.5 34.0 - 45.0 % LAB HEMATOLOGY METHOD 01/27/2024 6:46 PM EDT [facility] Platelet Count 292 155 - 369 10*3/uL LAB HEMATOLOGY METHOD 01/27/2024 6:46 PM EDT [facility] MCV 90 79 - 98 fL LAB HEMATOLOGY METHOD 01/27/2024 6:46 PM EDT [facility] MCH 29.9 26.0 - 32.0 pg LAB HEMATOLOGY METHOD 01/27/2024 6:46 PM EDT [facility] MCHC 33.3 30.7 - 35.5 g/dL LAB HEMATOLOGY METHOD 01/27/2024 6:46 PM EDT [facility] RDW 14.8(H) 11.5 - 14.5 % LAB HEMATOLOGY METHOD 01/27/2024 6:46 PM EDT [facility] MPV 10.2 8.8 - 12.5 fL LAB HEMATOLOGY METHOD 01/27/2024 6:46 PM EDT [facility] nRBC 0.0 <=0.0 per 100 WBCs LAB HEMATOLOGY METHOD 01/27/2024 6:46 PM EDT [facility] Blood Venous blood specimen / Unknown Venipuncture / Unknown 01/27/2024 3:03 PM EDT 01/27/2024 6:34 PM EDT us Abiel Berrios MD LAB BLOOD ORDERABLES Final Resu lt [facility] [address] [place] [address] * (ABNORMAL) Glucose Challenge - OB Screen 1 hour (01/27/2024 3:03 PM EDT) Glucose OB Screen - 1 Hour 156(H) 74 - 139 mg/dL 01/27/2024 6:47 PM EDT [facility] Blood Venous blood specimen / Unknown Venipuncture / Unknown 01/27/2024 3:03 PM EDT 01/27/2024 6:19 PM EDT Narrative [facility] - 01/27/2024 6:47 PM EDT If plasma glucose concentration measured 1 hour after 50g glucose load is >= 140 mg/L, proceed to [id number], Glucose Tolerance Confirmation 3 Hour Test. Abiel Berrios MD LAB BLOOD ORDERABLES Final Resu lt [facility] [address] [place] [address] documented in this encounter Visit Diagnoses Diagnosis 30 weeks gestation of - Primary Previous section complicating Chronic hypertension complicating or reason for care during , third trimester AMA (advanced maternal age) multigravida 35+, third trimester Chronic hypertension complicating or reason for care during , third trimester documented in this encounter Administered Medications Inactive Administered Medications - up to 3 most recent administrations Medication Order MAR Action Action Date Dose Rate Site labetalol (Normodyne) tablet 100 mg 100 mg, Oral, Once, 1 dose, On Fri01/27/24 at 1530, RoutineIndications:Chronic hypertension complicating or reason for care during , third trimester Given 01/27/2024 3:11 PM EDT 100 mg labetalol (Normodyne) tablet 100 mg 100 mg, Oral, Once, 1 dose, On Fri01/27/24 at 1530, RoutineIndications:Chronic hypertension complicating or reason for care during , third trimester Given 01/27/2024 3:11 PM EDT 100 mg labetalol (Normodyne) tablet 100 mg 100 mg, Oral, Once, 1 dose, On Fri01/27/24 at 1615, RoutineIndications:Chronic hypertension complicating or reason for care during , third trimester Given 01/27/2024 3:53 PM EDT 100 mg labetalol (Normodyne) tablet 100 mg 100 mg, Oral, Once, 1 dose, On Fri01/27/24 at 1615, RoutineIndications:Chronic hypertension complicating or reason for care during , third trimester Given 01/27/2024 3:53 PM EDT 100 mg documented in this encounter Additional Health Concerns Assessment Noted Time A fall risk assessment has been complete d for the patient 01/27/2024 3:02 PM EDT A Body Mass Index follow-up plan has been documented for the patient 01/27/2024 4:23 PM EDT documented as of this encounter Care Teams Vendor Management Consultant Relationship Specialty Start Date End Date Meghan Beach APRN [address] [place] [address] [place] [address] PCP - General 04/03/22 documented as of this encounter
--- OUTSIDE RECORDS SUMMARY | 2024-03-26 19:33 | XMS_ITS | Encounter Summary ---
Author Organization [facility] Address [address] [place] [address] Care Team Providers Care Shingle Bolt Cutter Name Role Phone Meghan Beach KHALIDA Primary Care Provider [phone] Encounter Details Date Type Department Care Team (Latest Contact Info) Description 02/03/2024 8:00 AM EDT Clinical Support Obstetrics & Gynecology [address] [place] [address] 31 weeks gestation of (Primary Dx) Social History Tobacco Use Types Packs/Day Years [...] as of this encounter Miscellaneous Notes * Clinician Note - Nimco Rosenbaum - 02/03/2024 8:00 AM EDT 3 hour glucose lab only. documented in this encounter Plan of Treatment Upcoming Encounters Date Type Department Care Team (Late Contact Info) Description 04/08/2024 11:00 AM EST Routine Obstetrics & Gynecology [address] [place] [address] Abiel Berrios MD [address] [place] [address] documented as of this encounter Procedures Procedure Name Priority Date/Time Associated Diagnosis Comments GTT 3 HOUR Routine 02/03/2024 11:21 AM EDT 31 weeks gestation of GTT 2 HOUR Routine 02/03/2024 10:24 AM EDT 31 weeks gestation of GTT 1 HOUR Routine 02/03/2024 9:21 AM EDT 31 weeks gestation of GTT, FASTING Routine 02/03/2024 8:16 AM EDT 31 weeks gestation of GLUCOSE TOLERANCE CONFIRMATION, 3 HOUR, OB, PLASMA Routine 02/03/2024 8:16 AM EDT 31 weeks gestation of documented in this encounter Results * GTT 3 Hour (02/03/2024 11:21 AM EDT) GTT - 3 Hour 111 74 - 139 mg/dL 02/03/2024 1:55 PM EDT [facility] Blood Venous blood specimen / Unknown Venipuncture / Unknown 02/03/2024 11:21 AM EDT 02/03/2024 12:55 PM EDT Narrative [facility] - 02/03/2024 1:55 PM EDT At least 2 of the 4 values must be abnormal for the diagnosis of gestational diabetes. us Abiel Berrios MD LAB BLOOD ORDERABLES Final Resu lt [facility] [address] [place] [address] * (ABNORMAL) GTT 2 Hour (02/03/2024 10:24 AM EDT) [facility] GTT - 2 Hour 197(H) 74 - 154 mg/dL 02/03/2024 1:48 PM EDT [facility] Blood Venous blood specimen / Unknown Venipuncture / Unknown 02/03/2024 10:24 AM EDT 02/03/2024 12:55 PM EDT Narrative [facility] - 02/03/2024 1:48 PM EDT Plasma glucose concentrations measured 2 hours after a 75g glucose load of >=200 mg/dL are diagnostic for Diabetes Mellitus. Result Saw Berrios MD LAB BLOOD ORDERABLES Final Resu lt Performing Organization Address City/[facility]/ZIP Co de Phone Number [facility] [address] [place] [address] * (ABNORMAL) GTT 1 Hour (02/03/2024 9:21 AM EDT) [facility] GTT - 1 Hour 268(H) 74 - 179 mg/dL 02/03/2024 1:54 PM EDT [facility] Blood Venous blood specimen / Unknown Venipuncture / Unknown 02/03/2024 9:21 AM EDT 02/03/2024 12:55 PM EDT Result Saw Berrios MD LAB BLOOD ORDERABLES Final Resu lt Performing Organization Address [facility]/ZIP Co de Phone Number [facility] [address] [place] [address] * (ABNORMAL) GTT, Fasting (02/03/2024 8:16 AM EDT) [facility] GTT - Fasting 127(H) 74 - 94 mg/dL 02/03/2024 1:49 PM EDT [facility] Blood Venous blood specimen / Unknown Venipuncture / Unknown 02/03/2024 8:16 AM EDT 02/03/2024 12:55 PM EDT Result Saw Berrios MD LAB BLOOD ORDERABLES Final Resu lt Performing Organization Address City/[facility]/ZIP Co de Phone Number [facility] [address] [place] [address] documented in this encounter Visit Diagnoses Diagnosis 31 weeks gestation of - Primary documented in this encounter Additional Health Concerns Assessment Noted Time A fall risk assessment has been complete d for the patient 01/27/2024 3:02 PM EDT A Body Mass Index follow-up plan has been documented for the patient 02/03/2024 11:36 AM EDT documented as of this encounter Care Teams Shingle Bolt Cutter Relationship Specialty Start Date End Date Meghan Beach APRN [address] [place], [place] [id number] PCP - General 04/03/22 documented as of this encounter
--- OUTSIDE RECORDS SUMMARY | 2024-03-26 19:33 | XMS_ITS | Encounter Summary ---
Author Organization [facility] Address [address] [place] [address] Care Team Providers Care Pharmacy Sales Representative Name Role Phone Meghan Beach KHALIDA Primary Care Provider [phone] Encounter Details Date Type Department Care Team (Latest Contact Info) Description 01/19/2024 Travel Social History Tobacco Use Types Packs/Day [...] Routine Obstetrics & Gynecology [address] [place] [address] Abiel Berrios MD [address] [place] [address] documented as of this encounter Visit Diagnoses Not on filedocumented in this encounter Additional Health Concerns Assessment Noted Time A fall risk assessment has been complete d for the patient 01/19/2024 4:02 PM EDT A Body Mass Index follow-up plan has been documented for the patient 01/19/2024 4:43 PM EDT documented as of this encounter Care Teams Pharmacy Sales Representative Relationship Specialty Start Date End Date Meghan Beach APRN [address] [place] [address] [place] [address] PCP - General 04/03/22 documented as of this encounter
--- OUTSIDE RECORDS SUMMARY | 2024-03-26 19:33 | XMS_ITS | Encounter Summary ---
Author Organization Address [address] [place] [address] Care Team Providers Care Melt House Supervisor Name Role Phone Meghan Beach KHALIDA Primary Care Provider Reason for Referral * Imaging (Routine) - Closed Specialty Diagnoses / Procedures Referred By Contac t Referred To Contact Diagnoses 29 weeks gestation of Procedures OB US 14+ Weeks Anatomy Scan Abiel Berrios MD [address] [place] [address] Phone: tel: fax: Referral ID Status Reason Start Date Expiration Date Visits Re quested Visits Authorized [id number] Closed 01/19/2024 07/20/2025 1 1 Reason for Visit * Imaging (Routine) - Closed Specialty Diagnoses / Procedures Referred By Kehinde lerner Referred To Contact Diagnoses 29 weeks gestation of Procedures OB US 14+ Weeks Anatomy Scan Abiel Berrios MD [address] [place] [address] Phone: tel: fax: Referral ID Status Reason Start Date Expiration Date Visits Re quested Visits Authorized [id number] Closed 01/19/2024 07/20/2025 1 1 Encounter Details Date Type Department Care Team (Latest Contact Info) Description 01/27/2024 2:53 PM EDT - 01/27/2024 11:59 PM EDT Hospital Encounter [facility] [address] [place] [address] 29 weeks gestation of Discharge Disposition: Home or Self Care Social History Tobacco Use Types Packs/Day Years [...] AM EDT documented as of this encounter Medications at Time of Discharge aspirin 81 MG EC tablet Take 1 tablet (81 mg) by mouth 1 (one) time each day. labetalol (Normodyne) 200 MG tablet Take 1 tablet (200 mg) by mouth 3 (three) times a day. 90 tablet 3 01/21/2024 07/19/2024 NIFEdipine XL (Procardia XL) 30 MG 24 hr tablet Take 1 tablet (30 mg) by mouth 2 (two) times a day. Do not crush, chew, or split. 60 tablet 5 01/27/2024 07/25/2024 Vit-Fe Fumarate-FA ( VITAMINS PO) Take by mouth. 02/09/2024 documented as of this encounter Plan of Treatment Upcoming Encounters Date Type Department Care Team (Late st Contact Info) Description 04/08/2024 11:00 AM EST Routine Obstetrics & Gynecology [address] [place] [address] Abiel Berrios MD [address] [place] [address] documented as of this encounter Procedures Procedure Name Priority Date/Time Associated Diagnosis Comments OB US 14+ WEEKS ANATOMY SCAN Routine 01/27/2024 3:53 PM EDT 29 weeks gestation of documented in this encounter Results * OB US 14+ Weeks Anatomy Scan (01/27/2024 3:53 PM EDT) Anatomical Region Laterality Modality Body Ultrasound 01/27/2024 3:07 PM EDT Impressions 01/29/2024 2:12 PM EDT The OB Ultrasound you requested has been resulted. Please navigate to the Imaging tab in [employer] for review. This message has been generated by the interface. Narrative Procedure Note Stevo Huff MD - 01/29/2024 IMPRESSION: The OB Ultrasound you requested has been resulted. Please navigate to theImaging tab in [employer] for review. This message has been generated by theinterface. us Abiel Berrios MD IMG OB US PROCEDURES Final Resu lt documented in this encounter Visit Diagnoses Diagnosis 29 weeks gestation of documented in this encounter Additional Health Concerns Assessment Noted Time A fall risk assessment has been complete d for the patient 01/27/2024 3:02 PM EDT A Body Mass Index follow-up plan has been documented for the patient 01/27/2024 4:23 PM EDT documented as of this encounter Care Teams Melt House Supervisor Relationship Specialty Start Date End Date Meghan Beach APRN [address] [place] [address] [place] [address] PCP - General 04/03/22 documented as of this encounter
--- OUTSIDE RECORDS SUMMARY | 2024-03-26 19:33 | XMS_ITS | Encounter Summary ---
Author Organization [facility] Address [address] [place] [address] Care Team Providers Care Subway Repair Supervisor Name Role Phone Meghan Beach KHALIDA Primary Care Provider [phone] Encounter Details Date Type Department Care Team (Latest Contact Info) Description 01/27/2024 Travel Social History Tobacco Use Types Packs/Day [...] Routine Obstetrics & Gynecology [address] [place] [address] Abiel Berrios MD [address] [place] [address] documented as of this encounter Visit Diagnoses Not on filedocumented in this encounter Additional Health Concerns Assessment Noted Time A fall risk assessment has been complete d for the patient 01/27/2024 3:02 PM EDT A Body Mass Index follow-up plan has been documented for the patient 01/27/2024 4:23 PM EDT documented as of this encounter Care Teams Subway Repair Supervisor Relationship Specialty Start Date End Date Meghan Beach APRN [address] [place] [address] [place] [address] PCP - General 04/03/22 documented as of this encounter
--- OUTSIDE RECORDS SUMMARY | 2024-03-26 19:33 | XMS_ITS | Encounter Summary ---
Author Organization [facility] Address [address] [place] [address] Care Team Providers Care Senior Network Administrator Name Role Phone Meghan Beach KHALIDA Primary Care Provider [phone] Reason for Referral * Imaging (Routine) - Closed Specialty Diagnoses / Procedures Referred By Kehinde lerner Referred To Contact Diagnoses Chronic hypertension complicating or reason for care during , third trimester Procedures OB US Follow Up Transabdominal Approach Abiel Berrios MD [address] [place] [address] Phone: tel: fax: Referral ID Status Reason Start Date Expiration Date Visits Re quested Visits Authorized [id number] Closed 01/27/2024 07/28/2025 1 1 Reason for Visit * Imaging (Routine) - Closed Specialty Diagnoses / Procedures Referred By Kehinde lerner Referred To Contact Diagnoses Chronic hypertension complicating or reason for care during , third trimester Procedures OB US Follow Up Transabdominal Approach Abiel Berrios MD [address] [place] [address] Phone: tel: fax: Referral ID Status Reason Start Date Expiration Date Visits Re quested Visits Authorized [id number] Closed 01/27/2024 07/28/2025 1 1 Encounter Details Date Type Department Care Team (Latest Contact Info) Description 02/24/2024 2:35 PM EST - 02/24/2024 11:59 PM EST Hospital Encounter [facility] ULTR[facility] [address] [place] [address] Chronic hypertension complicating or reason for care during , third trimester Discharge Disposition: Home or Self Care Social [...] tablet 5 01/27/2024 07/25/2024 Vit-Fe Fumarate-FA ( Vitamins) 28-0.8 MG tablet Take 1 tablet by mouth 1 (one) time each day. 90 tablet 3 02/09/2024 02/08/2025 documented as of this encounter Plan of Treatment Upcoming Encounters Date Type Department Care Team (Late st Contact Info) Description 04/08/2024 11:00 AM EST Routine Obstetrics & Gynecology [address] [place] [address] Abiel Berrios MD [address] [place] [address] documented as of this encounter Goals Goal Patient Goal Type Associated Problems Recent Progress Patient-Stated? Author Delayed Delivery Care Plan CPM S22 PP LABOR (OBSTETRICS) No Open Scheduling, Background documented as of this encounter Procedures Procedure Name Priority Date/Time Associated Diagnosis Comments OB US FOLLOW UP TRANSABDOMINAL APPROACH Routine 02/24/2024 3:54 PM EST Chronic hypertension complicating or reason for care during , third trimester documented in this encounter Results * OB US Follow Up Transabdominal Approach (02/24/2024 3:54 PM EST) Anatomical Region Laterality Modality Body Ultrasound 02/24/2024 3:31 PM EST Impressions 02/24/2024 7:55 PM EST The OB Ultrasound you requested has been resulted. Please navigate to the Imaging tab in [employer] for review. This message has been generated by the interface. Narrative Procedure Note Barbara De La Cruz MD - 02/24/2024 IMPRESSION: The OB Ultrasound you requested has been resulted. Please navigate to theImaging tab in [employer] for review. This message has been generated by theinterface. us Abiel Berrios MD IMG OB US PROCEDURES Final Resu lt documented in this encounter Visit Diagnoses Diagnosis Chronic hypertension complicating or reason for care during , third trimester documented in this encounter Additional Health Concerns Active Problems Noted Date Diagnosed Date CPM S22 PP LABOR (OBSTETRICS) 02/05/2024 Assessment Noted Time A fall risk assessment has been complete d for the patient 02/24/2024 4:07 PM EST A Body Mass Index follow-up plan has been documented for the patient 02/24/2024 4:18 PM EST documented as of this encounter Care Teams Senior Network Administrator Relationship Specialty Start Date End Date Meghan Beach APRN [address] [place] [address] [place] [address] PCP - General 04/03/22 documented as of this encounter
--- OUTSIDE RECORDS SUMMARY | 2024-03-26 19:33 | XMS_ITS | Encounter Summary ---
Author Organization [facility] Address [address] [place] [address] Care Team Providers Care Beverage Inspection Machine Tender Name Role Phone Beach Atiliobritt Anderson GAXIOLA Primary Care Provider [phone] Reason for Referral * Imaging (Routine) - Closed Specialty Diagnoses / Procedures Referred By Kehinde lerner Referred To Contact Diagnoses 29 weeks gestation of Procedures OB US 14+ Weeks Anatomy Scan Abiel Berrios MD [address] [place] [address] Phone: tel: fax: Referral ID Status Reason Start Date Expiration Date Visits Re quested Visits Authorized [id number] Closed 01/19/2024 07/20/2025 1 1 Encounter Details Date Type Department Care Team (Late st Contact Info) Description 01/19/2024 3:15 PM EDT Initial Obstetrics & Gynecology [address] [place] [address] Abiel Berrios MD [address] [place] [address] GA: [id number] Social History Tobacco Use Types Packs/Day Years [...] Sign Reading Time Taken Comments Blood Pressure 143/85 01/19/2024 4:03 PM EDT Pulse 89 01/19/2024 4:03 PM EDT Temperature 36.6 ??C (97.9 ??F) 01/19/2024 4:03 PM ED T Respiratory Rate 20 01/19/2024 4:03 PM EDT Oxygen Saturation 100% 01/19/2024 4:03 PM EDT Inhaled Oxygen Concentration - - Weight 168 kg (370 lb 6 oz) 01/19/2024 4:03 PM E DT Height 167.6 cm (5' 6 ) 01/19/2024 4:03 PM EDT Body Mass Index 59.78 01/19/2024 4:03 PM EDT documented in this encounter Miscellaneous Notes * Progress Notes - Abiel Berrios MD - 01/19/2024 3:15 PM EDT Initial Note Subjective TOB at 29+3 weeks EGA H/O LTCS x 2 PNV Labetalol 100 BID + bASA for CHTN NO h/o other Med Issues +FM NO VB/LOF Dating was by 17 week US NO glucola yet NO records yet NO Pre-E sxs OB History Para Term AB Living 3 2 2 2 SAB IAB Ectopic Multiple Live Births 2 # Outcome Date GA Lbr Adrian/2nd Weight Sex Delivery Anes PTL Lv 3 Current 2 Term CS-LTranv NILA 1 Term CS-LTranv NILA Past Medical History She has no past medical history on file. Past Surgical History She has a past surgical history that includes section, classic and Cholecystectomy. Social History She Family History Her family history includes Lupus in her mother. Allergies She has No Known Allergies. Current Medications She has a current medication list which includes the following prescription(s): aspirin, labetalol,and vit-fe fumarate-fa. Review of Systems Objective Physical Exam Visit Vitals BP (!) 143/85 Pulse 89 Temp 36.6 ??C (97.9 ??F) Resp 20 Pregravid weight: Pregravid weight not on file Pregravid BMI: Could not be calculated There is no height or weight on file to calculate BMI. See encounter summary and flowsheet for exam details. Bedside US - VTX w/ FM seen - +CA 150s Assessment/Plan IUP at 29+3 weeks by 17 week US Request Records PNV Increase Labetalol to 200 TID + bASA Schedule Re-Anatomy US EDUC/BOOK FLU + Tdap done today For RLTCS Problem List Items Addressed This Visit None Visit Diagnoses 29 weeks gestation of - Primary Relevant Orders Urine dip (Completed) OB US 14+ Weeks Anatomy Scan Previous section complicating Chronic hypertension complicating or reason for care during , third trimester Relevant Medications labetalol (Normodyne) 200 MG tablet AMA (advanced maternal age) multigravida 35+, third trimester A total of 45 minutes was spent on this visit with at least more than 50% of the encounter spent incounseling and/or coordinating care including reviewing previous notes, counseling the patient on their identified issues as indicated in the note, discussing previous and/or ordered tests or imaging, prescribing/refilling medications, and documenting the findings in this note, as well as laying out a specific plan of action for this patient. documented in this encounter Plan of Treatment Upcoming Encounters Date Type Department Care Team (Late st Contact Info) Description 04/08/2024 11:00 AM EST Routine [facility] [address] [place] [address] Abiel Berrios MD [address] [place] [address] documented as of this encounter Procedures Procedure Name Priority Date/Time Associated Diagnosis Comments POCT URINALYSIS DIPSTICK Routine 01/19/2024 4:22 PM EDT 29 weeks gestation of documented in this encounter Results * OB US 14+ Weeks Anatomy Scan (01/27/2024 3:53 PM EDT) Anatomical Region Laterality Modality Body Ultrasound 01/27/2024 3:07 PM EDT Impressions 01/29/2024 2:12 PM EDT The OB Ultrasound you requested has been resulted. Please navigate to the Imaging tab in [employer] for review. This message has been generated by the interface. Narrative Procedure Note Stevo Huff MD - 01/29/2024 IMPRESSION: The OB Ultrasound you requested has been resulted. Please navigate to theImaging tab in [employer] for review. This message has been generated by theinterface. Result Saw Berrios MD IMG OB US PROCEDURES Final Resu lt * (ABNORMAL) Urine dip (01/19/2024 4:22 PM EDT) POCT Urine Color Yellow POCT Urine Clarity Clear POCT Glucose Urine Negative Negative mg/dL POCT Bilirubin, Urine Negative Negative POCT Ketones, Urine Negative Negative mg/dL POCT Specific [place], Urine 1.025 POCT Blood, Urine Negative Negative POCT pH, Urine 6.5 5.0 to 8.0 POCT Protein, Urine 30(A) Negative mg/dL POCT Urobilinogen, Urine 0.2 0.2, 1 E.U./dL POCT Nitrite, Urine Negative Negative POCT Leukocyte Esterase, Urine Small(A) Negative Test Strip Lot Number [id number] Test Strip Lot Expiration [id number] Urine Urine specimen obtained by clean catch procedure / Unknown 01/19/2024 4:22 PM EDT Result Saw Berrios MD POINT OF CARE TEST ENTER/EDIT O RDERABLES Final Result documented in this encounter Visit Diagnoses Diagnosis 29 weeks gestation of - Primary Previous section complicating Chronic hypertension complicating or reason for care during , third trimester AMA (advanced maternal age) multigravida 35+, third trimester 29 weeks gestation of documented in this encounter Additional Health Concerns Assessment Noted Time A fall risk assessment has been complete d for the patient 01/19/2024 4:02 PM EDT A Body Mass Index follow-up plan has been documented for the patient 01/19/2024 4:43 PM EDT documented as of this encounter Care Teams Beverage Inspection Machine Tender Relationship Specialty Start Date End Date Meghan Beach APRN [address] [place] [address] [place] [address] PCP - General 04/03/22 documented as of this encounter
--- OUTSIDE RECORDS SUMMARY | 2024-03-26 19:33 | XMS_ITS | Encounter Summary ---
Author Organization [facility] Address [address] [place] [address] Care Team Providers Care Pump Servicer Helper Name Role Phone Meghan Beach KHALIDA Primary Care Provider [phone] Encounter Details Date Type Department Care Team (Latest Contact Info) Description 02/03/2024 Travel Social History Tobacco Use Types Packs/Day [...] Routine Obstetrics & Gynecology [address] [place] [address] Abiel Berrios MD [address] [place] [address] documented as of this encounter Visit Diagnoses Not on filedocumented in this encounter Additional Health Concerns Assessment Noted Time A fall risk assessment has been complete d for the patient 01/27/2024 3:02 PM EDT A Body Mass Index follow-up plan has been documented for the patient 02/03/2024 11:36 AM EDT documented as of this encounter Care Teams Pump Servicer Helper Relationship Specialty Start Date End Date Meghan Beach APRN [address] [place] [address] [place] [address] PCP - General 04/03/22 documented as of this encounter
--- OUTSIDE RECORDS SUMMARY | 2024-03-26 19:33 | XMS_ITS | Encounter Summary ---
Author Organization [facility] Address [address] [place] [address] Care Team Providers Care Precision Grinder External Name Role Phone Meghan Beach APRN Primary Care Provider Reason for Referral * Consultation (Routine) - Authorized Specialty Diagnoses / Procedures Referred By Kehinde lerner Referred To Contact Endocrinology Diagnoses Diet controlled gestational diabetes mellitus (GDM) in third trimester Abiel Berrios MD [address] [place] [address] Phone: tel: fax: [facility] Diabetes Education [address], [address] [place] [address] Phone: tel: fax: Referral ID Status Reason Start Date Expiration Date V isits Requested Visits Authorized [id number] Authorized 02/04/2024 08/05/2025 1 1 Reason for Visit * Reason Comments Patient Education Encounter Details Date Type Department Care Team (Late st Contact Info) Description 02/04/2024 Education Obstetrics & Gynecology [address] [place] [address] Shannon Magana RN ``````````````````` `````````HOSP. OBSTETRICS, POST Diet controlled gestational diabetes mellitus (GDM) in third trimester (Primary Dx) Social History Tobacco Use Types [...] as of this encounter Miscellaneous Notes * Shannon Mohr RN - 02/04/2024 10:14 AM EDT Images from the original note were not included. [id number] Understanding Blood Sugar During Gestational diabetes causes high blood sugar levels during . You are at risk of developing, or perhaps have already developed, gestational diabetes. Controlling your blood sugar can help prevent problems for you and your baby. Your body turns food into blood sugar As food is digested, it turns into sugar (glucose), a fuel that feeds your body. This sugar goes into your bloodstream. Your body then releases a substance called insulin to help your body use blood sugar correctly. Blood sugar goes to your baby The placenta is where nutrients in your blood are exchanged with your baby?s blood. Your blood sugar goes to your baby from the placenta through the umbilical cord. Your baby uses this sugar to grow. Too much blood sugar affects you and your baby During , the placenta makes hormones that can disrupt the way your body uses insulin. If your body can?t use insulin correctly, your blood sugar level gets too high. Then too much blood sugar goes to your baby. This can cause problems for both you and your baby. Controlling your blood sugar helps prevent problems You can lower your blood sugar by eating right, exercising, and taking medicines that your healthcare provider prescribes to control your blood sugar. If you keep your blood sugar in control, the risks to you and your baby are the same as those for a normal . Last Reviewed Date: 2023 00:00:00 ?? [employer]. All rights reserved. This information is not intended as a substitute for professional medical care. Always follow your healthcare professional's instructions. * Taras On[facility] - Shannon Magana RN - 02/04/2024 10:14 AM EDT Images from the original note were not included. [id number] Diet: Diabetes Food is an important tool that you can use to control diabetes and stay healthy. Eating well-balanced meals in the correct amounts will help you control your blood glucose levels and prevent low blood sugar reactions. It will also help you reduce the health risks of diabetes. There is no one specific diet that is right for everyone with diabetes and you can eat a variety of foods. But there are general guidelines to follow. A registered dietitian (RD) will create a tailored diet approach that?sjust right for you. They will also help you plan healthy meals and snacks. If you have any questions, call your dietitian for advice. Guidelines for success Talk with your healthcare provider before starting a diabetes diet or weight loss program. If you haven't talked with a dietitian yet, ask your provider for a referral. The following guidelines can help you succeed: ?? Select foods from the 6 food groups below. Your dietitian will help you find food choices withineach group. He or she will also show you serving sizes and how many servings you can have at each meal. o Grains, beans, and starchy vegetables o Vegetables o Fruit o Milk or yogurt o Meat, poultry, fish, or tofu o Healthy fats ?? Check your blood sugar levels as directed by your provider. Take any medicine as prescribed by your provider. ?? Learn to read food labels and pick the right portion sizes. ?? Limit carbohydrates at each meal to help manage your diabetes. The carbohydrates you eat become glucose in the blood. This does not mean you can't eat carbohydrates. Talk with your healthcare provider about how many grams of carbohydrates are recommended for you at each meal. Eat 3 meals a day, at consistent times. Don't skip meals. If you are hungry between meals, eat a small, low-carbohydrate snack. ?? Talk with your healthcare provider if you drink alcohol. Alcohol can have unpredictable effects on blood glucose. It's also high in empty calories and can raise a type of blood fat called triglycerides. Drink water or calorie-free diet drinks instead. ?? Eat less fat to help lower your risk of heart disease. Use nonfat or low-fat dairy products and lean meats. Avoid fried foods. Use cooking oils that are unsaturated, such as olive, canola, or peanut oil. ?? Don't eat foods with added salt. Salt can contribute to high blood pressure, which can cause heart disease. People with diabetes already have a risk for high blood pressure and heart disease. ?? Stay at a healthy weight. If you need to lose weight, cut down on your portion sizes. But never skip meals. Exercise is an important part of any weight management program. Talk with your provider about an exercise program that?s right for you. ?? For more information about the best diet plan for you, talk with an RD. To find an RD in your area, contact: o Academy of Nutrition and Dietetics at www.eatright.org o [employer] [place] [employer] at www.diabetes.org or 264-227-9875 o Association of Diabetes Care and Education Specialists at www.diabeteseducator.org/ Last Reviewed Date: 2021 00:00:00 ?? [employer]. All rights reserved. This information is not intended as a substitute for professional medical care. Always follow your healthcare professional's instructions. * Shannon Mohr RN - 02/04/2024 10:14 AM EDT Images from the original note were not included. Sweets and Diabetes - Video Watch this to learn how sweets can fit into your diabetes meal plan. To view the video go to this web address: https://bit.ly/4bugnNX Or, scan this QR code with your smart phone ?? [employer] * Shannon Mohr RN - 02/04/2024 10:14 AM EDT Images from the original note were not included. [id number] Facts About Diabetes What is diabetes? When you have diabetes, your body has a problem with insulin. It doesn't make enough insulin or can't use the insulin it makes (insulin resistance). Insulin is a hormone released by the pancreas. It helps sugar (glucose) enter your cells to be used as energy. Without insulin, too much sugar stays in your blood. There are 3 main types of diabetes. They are called type 1, type 2, and gestational diabetes. What is prediabetes? Prediabetes is when blood sugar levels are higher than normal. But they aren't high enough to be diabetes. Many people with prediabetes will have type 2 diabetes within 10 years. More than 1 in 3 adults in the [place] have prediabetes. Most of them don't know they have it. They don't know the health risks it causes. Prediabetes raises the risk for heart disease and stroke. Things that raise your risk for prediabetes include: ?? Excess weight ?? Being age 45 or older ?? Polycystic ovarian syndrome (PCOS) ?? History of gestational diabetes ?? Family history of diabetes ?? Not being physically active ?? Taking certain medicines You have a higher risk of prediabetes if you are: ? [place] ? [place] You may be able to delay or even prevent type 2 diabetes. You can do this with some lifestyle changes: ?? Lose excess weight. Losing 5% to 7% of your weight can help if you are overweight. Losing 10% ormore of your weight and keeping that weight off usually gives you even greater benefits. Your type 2 diabetes may go into remission. ?? Get more exercise. Aim for 150 minutes or more a week of medium to high intensity aerobic activity. Don't let more than 2 days go by without being active. Experts advise all adults to spend less time sitting and being inactive. This is even more important if you have type 2 diabetes. Get up for some light activity every 30 minutes if you do sit for a long time. Ask your healthcare provider to refer you to a lifestyle intervention program. This will help you get to and stay at a 7% weight loss. It will help you boost your physical activity. How does diabetes affect blood sugar? Your pancreas makes insulin. Insulin is needed for glucose to move into the body's cells for energy. When you have diabetes, your pancreas makes little or no insulin. Or your body's cells don?t respond to the insulin that?s made. This causes sugar to build up in the blood. But your body's cells needsugar. Without it, they don't have enough fuel to work as they should. The 3 main types of diabetes all lead to a buildup of blood sugar. Each type causes problems with insulin. But each type has a different cause and treatment. Type 1 diabetes Type 1 diabetes is an autoimmune disease. This means it's caused by the body's immune system. It destroys the cells in the pancreas that make insulin. Then your body makes little or no insulin. People with type 1 diabetes must take insulin every day to live. About 1 in 20 people with diabetes have type 1. People are more at risk if they have a parent or sibling with type 1 diabetes. Most people are diagnosed with type 1 diabetes when they are a child, teen, or young adult. But youmay be diagnosed at any age. Americans are at higher risk for type 1 diabetes. There is no way to prevent type 1 diabetes. Type 2 diabetes Type 2 diabetes happens when the body can't make enough insulin. Or the body can't use it normally.You may be able to control type 2 with diet, exercise, and weight loss. You can control it by taking medicine by mouth. Or you may need insulin injections or other medicine. Most people with diabeteshave type 2. Things that put you at risk for type 2 diabetes include: ?? Prediabetes ?? Excess weight ?? Family history of type 2 diabetes ?? Being age 45 or older ?? History of gestational diabetes ?? Not being physically active ?? Taking certain medicines You may be at higher risk if you are: ? [place] ? [place] You can delay or prevent type 2 diabetes with: ?? Physical activity ?? Weight loss ?? Healthy eating Gestational diabetes This type only happens in . It affects people who did not have diabetes before. They can't use the insulin their body makes. This type of diabetes often goes away after the baby is born. If not, it likely was not gestational diabetes. It was more likely type 1 or type 2 diabetes that began in . Gestational diabetes may be controlled with diet and exercise, and by watching weight gain. You mayneed to take medicines to control your blood sugar. You may be at higher risk for type 2 later in life. Things that raise your risk for gestational diabetes include: ?? History of gestational diabetes ?? Being age 25 or older ?? Excess weight ?? Giving in the past to a baby weighing more than 9 pounds ?? Family history of diabetes ?? PCOS You may be at higher risk if you are: ? [place] ? You may be able to prevent gestational diabetes by: ?? Losing excess weight ?? Eating a healthy diet ?? Exercising Complications of diabetes Except for gestational diabetes, diabetes is an ongoing (chronic) disease. This means there is no known cure. It affects nearly every part of the body. It may lead to other serious diseases. And it can be life-threatening. You must work with a healthcare provider to manage your diabetes. With good blood sugar control, you may prevent the serious complications of the disease. Or you can stop them from getting worse. Complications of diabetes can include: ?? Eye problems and blindness ?? Gum disease ?? Heart disease ?? Stroke ?? Nervous system problems ?? Loss of a limb ?? Kidney disease ?? Impotence ?? Diabetic ketoacidosis. As blood sugar cannot be used as a fuel source by your cells, fat is broken down by the liver into ketones to be used as fuel by cells. When ketones are made too quickly andbuild up in the blood, they can be toxic. This condition is known as diabetic ketoacidosis. It is alife-threatening condition and needs immediate medical attention. How daily issues affect your health Many things in your daily life impact your health. This can include transportation, money problems,housing, access to food, and early childhood education specialist. If you can?t get to medical appointments, you may not receive the care you need. When money is tight, it may be difficult to pay for medicines. And living farfrom a grocery store can make it hard to buy healthy food. If you have concerns in any of these or other areas, talk with your healthcare team. They may know of local resources to assist you. Or they may have a staff person who can help. Last Reviewed Date: 2023 00:00:00 ?? [employer]. All rights reserved. This information is not intended as a substitute for professional medical care. Always follow your healthcare professional's instructions. * [facility] - Shannon Magana RN - 02/04/2024 10:14 AM EDT Images from the original note were not included. 40490 Blood Glucose Screening During Gestational diabetes is diabetes that only women get. Changes in your body during can cause high blood sugar (glucose). This can cause problems for you and your baby. It is a serious condition. But it can be controlled. Your healthcare provider will talk with you about blood glucose screening. Who is at risk for gestational diabetes? You are at risk of getting gestational diabetes if any of the risk factors below apply to you. The risk for this condition gets higher as your number of risk factors increases: ?? You are , , , , or . ?? You weigh more than your healthcare provider says is healthy for you. ?? You have a relative with diabetes. ?? You are older than 25. ?? You had gestational diabetes during a past . ?? You had a stillbirth or a very large baby before. ?? You have a history of abnormal glucose tolerance. ?? You have sugar in your urine at the first visit. ?? You have metabolic syndrome, PCOS (polycystic ovary syndrome), are using glucocorticoids, or have high blood pressure. ?? You are with twins or more What happens during a screening? Here is what to expect during a blood glucose screening: ?? The [place] [employer] (ACOG) advises that all women be screened for gestational diabetes. When you are screened depends on your risk. Women are tested at24 to 28 weeks of . Women at high risk may be tested when they first learn they are . ?? A glucose screening test checks your blood sugar at the moment you?re tested. You?ll drink a liquid that contains glucose, and then 1 hour later your blood will be drawn to check your blood sugar level. If your blood sugar is high, you?ll need to take a glucose tolerance test. ?? The glucose tolerance test measures your blood sugar before and after you drink a liquid that contains glucose. You?ll fast (not eat) overnight before the test and have your blood drawn. This willgive you your fasting blood sugar level. Next, you will drink the glucose liquid and have your blood sugar level checked 1 hour, 2 hours, and possibly 3 hours afterward to see how your body responds to the glucose. Results can differ depending on the size of the glucose drink and how often your blood sugar is tested. Ask your doctor what your test results mean. What to know if you test positive Here are some things you need to know: ?? Gestational diabetes can be treated. The best way to control it is to find out you have it earlyand start treatment quickly. ?? This condition can cause problems for the mother during . It can also cause problems with the baby during , delivery, and after. Treatment greatly lowers the chance for problems. ?? The changes in your body that cause gestational diabetes normally happen only when you are . After the baby is born, your body goes back to normal. The condition goes away. But you may be more likely to have type 2 diabetes later. Talk with your healthcare provider about ways to help prevent type 2 diabetes. Treating gestational diabetes Here is how to treat gestational diabetes: ?? You?ll need to check your blood sugar often. You can do this at home. Prick your finger and check a drop of blood on a glucose monitor. Your healthcare provider will show you how and when to checkyour blood sugar. They will talk about your target blood sugar level. ?? To manage your blood sugar, you will be given a special plan. It will likely include meal planning and getting regular exercise. Some women need to take a hormone called insulin. Others may take medicine to help control their blood sugar. Last Reviewed Date: 2022 00:00:00 ?? [id number] [employer]. All rights reserved. This information is not intended as a substitute for professional medical care. Always follow your healthcare professional's instructions. * Taras Banda - Shannon Magana RN - 02/04/2024 10:14 AM EDT Images from the original note were not included. 40981 Checking Your Blood Sugar During The only way to make sure your blood sugar stays in a normal range is to check it regularly. You will most likely be asked to check your blood sugar at home 1 or more times a day. Your healthcare provider will teach you how. They may also ask you to test your urine at home. Your healthcare provider will make sure you know how to check your blood sugar correctly. Checking your blood sugar at home Your healthcare provider will discuss the best way and times for you to check your blood sugar. They will show you what to do. Your blood sugar is usually highest about an hour after you eat. You cancheck it using a blood glucose meter. ?? Read the instructions that come with your meter. Follow them carefully. ?? Write down your blood sugar level every time you check it. Bring the list of blood sugar levels to all your appointments with your healthcare provider. Also bring your glucose meter. When to call your healthcare provider Your blood sugar should be at these levels: Less than when you get up. Less than after breakfast. Less than after lunch. Less than after dinner. Check your blood sugar when you get up. Check it 1 to 2 hours after breakfast, lunch, and dinner, as your healthcare provider instructs. Your healthcare provider will tell you what to do if your blood sugar is higher than it should be. Call your healthcare provider if your blood sugar is above for more than . If you test your urine at home If you don?t eat enough, your body will burn fat to get energy. This leaves ketones in your urine. Your healthcare provider may have you check your urine for ketones each morning. You?ll do this withspecial strips of paper. They change color if there are ketones in your urine. This may mean that you?re not getting enough calories. Your healthcare provider may make changes in your meal plan. When to call your healthcare provider Call your provider if you have ketones in your urine for more than 2 days in a row. Last Reviewed Date: 2023 00:00:00 ?? [id number] [employer]. All rights reserved. This information is not intended as a substitute for professional medical care. Always follow your healthcare professional's instructions. * Shannon Mohr RN - 02/04/2024 10:14 AM EDT Images from the original note were not included. Gestational Diabetes: Monitoring Your Blood Glucose, Ketones, and Health - Video Learn why monitoring your blood glucose and ketone levels at home and keeping regular healthcare visits are important when you have gestational diabetes. To view the video go to this web address: https://bit.ly/[email or web address] Or, scan this QR code with your smart phone ?? [employer] * Shannon Mohr RN - 02/04/2024 10:14 AM EDT Images from the original note were not included. Making Healthy Food Choices When You Have Gestational Diabetes - Video Learn why choosing healthy carbohydrate and other food groups, while managing portion sizes, is important in controlling your blood glucose level and in providing enough nutrients to you and your growing baby. To view the video go to this web address: https://bit.ly/0JqN0aq Or, scan this QR code with your smart phone ?? [employer] * Shannon Mohr RN - 02/04/2024 10:14 AM EDT Images from the original note were not included. How to Check Your Blood Glucose When You Have Gestational Diabetes - Video Watch this demonstration of how to test your blood glucose levels at home. To view the video go to this web address: https://bit.ly/4RsIy5c Or, scan this QR code with your smart phone ?? [employer] * Shannon Mohr RN - 02/04/2024 10:14 AM EDT Images from the original note were not included. [id number] Gestational Diabetes: After Your blood sugar will most likely return to normal after delivery. But gestational diabetes is a warning sign that you are at risk of getting diabetes later in life. You?re also more likely to have gestational diabetes with your next . But you can take steps to reduce these risks. Taking care of yourself Even if your blood sugar goes back to normal, you still need to take care of yourself. This will help prevent diabetes later in life. You'll need to: ?? Keep your weight down. Eating food that is low in fat and sugar can help you control your weight. If you?re overweight, your risk of getting diabetes in 10 to 15 years more than doubles. Keeping your weight down also reduces your risk of gestational diabetes in your next . ?? Get regular exercise. Exercise helps lower your blood sugar. It can also help you control your weight. Try to work up to at least 150 to 300 minutes of moderate exercise every week. This is at least 30 minutes each day. ?? Have your blood sugar checked. Make an appointment to have your blood sugar checked 6 to 8 weeksafter delivery. If your blood sugar is still high, you may have type 2 diabetes. Your healthcare provider will tell you more about how to manage diabetes long-term. ?? Have regular diabetes screenings. Have blood tests every year, or as often as your healthcare provider advises. Breastmilk is the best food for your baby. Giving only breastmilk is advised for at least your baby's first 6 months. may also help lower your blood sugar. Your healthcare provider can show you how to breastfeed. Be sure to eat healthy foods and drink extra water while you?re . You may find exercise easier right after . This is when your breasts may feel hand spring repairer. Planning a future Your blood sugar needs to be back to normal before you get again. Have your blood sugar checked before you plan your next . And remember that it?s possible to get again soon after you give . Talk with your healthcare provider about the best method of control for you and your partner. Last Reviewed Date: 2021 00:00:00 ?? [id number] [employer]. All rights reserved. This information is not intended as a substitute for professional medical care. Always follow your healthcare professional's instructions. * Shannon Mohr RN - 02/04/2024 10:14 AM EDT Images from the original note were not included. Gestational Diabetes: Injecting Insulin with a Pen - Video Learn the steps for injecting insulin using an insulin pen and the recommended areas of your body to inject. Also, learn how to properly dispose of your used needle. To view the video go to this web address: https://bit.ly/2hG5siW Or, scan this QR code with your smart phone ?? [employer] * Shannon Mohr RN - 02/04/2024 10:14 AM EDT Images from the original note were not included. Gestational Diabetes: After Your Baby is Born - Video Watch this video to learn the possible complications and risks to both you and your baby after delivery, and tips to help lower your risk of developing type 2 diabetes in the future. To view the video go to this web address: https://bit.ly/44NkNNa Or, scan this QR code with your smart phone ?? [facility] * Shannon Mohr RN - 02/04/2024 10:14 AM EDT Images from the original note were not included. Exercising Safely When You Have Gestational Diabetes - Video Learn why exercising safely is an important part of managing gestational diabetes, and understand how to prevent low blood glucose while exercising. To view the video go to this web address: https://bit.ly/4nuvmy5 Or, scan this QR code with your smart phone ?? [facility] * Shannon Mohr RN - 02/04/2024 10:14 AM EDT Images from the original note were not included. [id number] What Is Gestational Diabetes? Gestational diabetes is a type of diabetes that happens during . Unlike type 1 diabetes, gestational diabetes is not caused by having too little insulin. Instead, hormones made by your placenta keep your body from using insulin as it should. This is called insulin resistance. Blood sugar (glucose) then builds up in your blood instead of being absorbed by the cells in your body and used for energy. This can cause high blood sugar and can cause problems for both you and your baby. You can take steps to control your blood sugar. This will help reduce the risks for you and your baby. Managing gestational diabetes You need to control your blood sugar while you are . Your healthcare team will help you make a plan to do this. This plan will include: ?? Eating the right foods. This is the main way to control your blood sugar. You need to eat a variety of healthy foods each day. To help you plan changes in your diet, you will likely work with a registered dietitian (OLGA). This is an expert on food and nutrition. The dietitian may have you take part in a nutrition program to help you reach your goals. ?? Getting exercise. Your body uses more blood sugar when you exercise. Your healthcare team can help you pick the best kinds of exercise for you. ?? Checking your blood sugar. You will likely need to check your blood sugar at home. You will do this 2 or more times a day. You will likely check your fasting blood sugar and after meal (postprandial) blood sugar. Your healthcare team will teach you how. They will talk with you about your blood sugar goals. Your blood sugar may also be tested every week or so at a clinic. If your blood sugar stays too high, you may need to have insulin shots during your . Risks to your baby If your blood sugar stays high, your baby is at risk for these problems: ?? Your baby may grow too large. If your blood sugar stays too high, your baby may grow too large. This is called macrosomia. This means a baby is too big for a safe vaginal . A large baby may get their shoulder stuck behind the pubic bone during . This is called shoulder dystocia. The baby's arms and shoulders could be injured. This may cause permanent arm damage. The baby may also have low oxygen levels (hypoxia) while they are stuck. Hypoxia can lead to cerebral palsy. In rare cases, it can lead to . ?? Your baby?s organs may not be fully grown at . If you have diabetes, your baby may need to be delivered early. This may be because of problems with the . Or it may be because of risks to you or your baby. If your baby is delivered early, their lungs may not work well. This is called respiratory distress syndrome. Your baby's liver also may not work normally. And your baby may have yellow color in their skin and eyes (jaundice) after . ?? Your baby?s blood sugar may be low after . If your blood sugar is too high, your baby makesextra insulin. The baby will keep making extra insulin right after . Your baby may need to be treated for low blood sugar. ?? Your baby could be stillborn. This is very rare. But your baby could before if your blood sugar stays high for too long. Risks to you If you don?t control your blood sugar, you are more likely to have: ?? High blood pressure. High blood sugar makes you more likely to have high blood pressure during your . This is a danger to your health. It could lead to early delivery for your baby. ?? Infections. High blood sugar makes you more likely to have bladder, kidney, and vaginal infections. ?? Trouble breathing. You may feel short of breath. High blood sugar can cause too much fluid around the baby. This is called polyhydramnios. Your abdomen gets big and pushes up on your lungs. ?? Difficult labor. Your delivery may be harder. And your recovery may take longer. If your blood sugar stays too high, your baby may grow too large. A large baby might cause injury to you during . Or the baby may have to be delivered by section (). This means making a cut (incision) in your abdomen and uterus. A is a common risk of gestational diabetes. Reduce your future risk for type 2 diabetes Women who have gestational diabetes are at higher risk of type 2 diabetes later. You are also at higher risk for gestational diabetes in your next . You can help reduce your risk in these ways: ?? Lose excess weight. ?? Be as active as you can. ?? Eat more fruits and vegetables. ?? Eat fewer processed foods. ?? Get regular blood tests to check for diabetes. ?? Breastfeed your baby. Who is at risk for gestational diabetes? You're more at risk if you: ?? Are overweight ?? Have a family history of diabetes ?? Have had a baby who before ?? Had gestational diabetes in the past ?? Are , , , [place] or [place] , or How daily issues affect your health Many things in your daily life impact your health. This can include transportation, money problems,housing, access to food, and childcare. If you can?t get to medical appointments, you may not receive the care you need. When money is tight, it may be difficult to pay for medicines. And living far from a grocery store can make it hard to buy healthy food. If you have concerns in any of these or other areas, talk with your healthcare team. They may know of local resources to assist you. Or they may have a staff person who can help. Last Reviewed Date: 2022 00:00:00 ?? [id number] [employer]. All rights reserved. This information is not intended as a substitute for professional medical care. Always follow your healthcare professional's instructions. * [facility] - Shannon Magana RN - 02/04/2024 10:13 AM EDT Images from the original note were not included. [id number] Gestational Diabetes: Exercise Exercise can help you keep your blood sugar in a normal range. That?s because your body uses more blood sugar when you exercise. Diabetes in can often be managed with careful nutrition and exercise alone. Then you may not need medicine to control your blood sugar. Exercise regularly Your healthcare provider may want you to exercise each day. The best time depends on when your blood sugar is highest. Exercising may also help ease some common symptoms of . These include bloating, constipation, and backaches. Ask about exercise at your first care visit. Your provider will work with you to make an exercise plan that fits your needs. Here are some tips: ?? Aim to exercise for 30 to 60 minutes a day. Do this at moderate intensity. This means you're moving enough to raise your heart rate and start sweating. But you can still talk normally. ?? Try breaking up daily exercise into 2 or 3 sessions. For example, take a 15- minute walk after each meal. ?? Exercise with a friend or your partner. This may help you stick to your exercise plan. ?? Go at a comfortable pace. Don?t tire yourself out. Exercise safely Ask your provider about exercise safety for you and your baby. Walking, swimming, and low-impact orwater aerobics are often the safest things to do. Other safety tips include: ?? Don't do activities where you jump, turn, twist, stop or start quickly. ?? Don't lift heavy weights. ?? Don't exercise on your back after the first trimester. This can put too much pressure on an important vein. It can limit blood flow to the baby. If you do yoga or Pilates, find a class designed for . ?? Use a sports bra to support your breasts. You may also want to use a belly support belt later inpregnancy. ?? Don't get overheated. Don't do hot yoga or hot Pilates. Don't raise your heart rate to a level that makes it hard to talk. ?? Drink plenty of water. ?? If you use insulin, carry a carbohydrate snack with you. ?? If you walk or do low-impact aerobics, wear sturdy shoes. ?? If you haven?t eaten in 2 or more hours, have a light snack before exercising. ?? Don't do contact sports that put you at risk of being hit in the belly. These include boxing, ice hockey, soccer, and basketball. ?? Don't go skydiving or scuba diving. ?? Don't do things that may cause a serious fall. These include horseback riding, gymnastics, and off-road cycling. ?? Use a stationary bike. It's a safer choice than a standard bike. It will stop you from getting off balance with your growing belly. When it's not safe to exercise It's not advised to exercise when if you have any of these health conditions: ?? Some types of heart and lung diseases ?? with twins or more, and at risk for labor ?? labor of your water has broken (ruptured membranes) ?? Placenta previa later than 26 weeks of ?? Preeclampsia or high blood pressure due to ?? Severe anemia ?? Cervical insufficiency or cerclage When to call your healthcare provider Call your provider right away or go to the emergency room (ER) if you have any of these: ?? Belly pain ?? Shortness of breath before starting exercise ?? Vaginal bleeding ?? Dizziness or feeling faint ?? Chest pain ?? Headache ?? Decreased movement ?? contractions ?? Muscle weakness ?? Calf pain or swelling ?? Fluid leaking from the vagina Last Reviewed Date: 2021 00:00:00 ?? [id number] [employer]. All rights reserved. This information is not intended as a substitute for professional medical care. Always follow your healthcare professional's instructions. * [facility] - Shannon Magana RN - 02/04/2024 10:06 AM EDT RN educated pt on gestational diabetes, and managing with diet and exercise. RN also explained to track blood sugars 4 times daily (fasting, 2hr after breakfast, 2hr after lunch, 2 hr after dinner). RN added Taras GDM education to [facility] and placed referral to Lorena ortiz for more GDM education. RN called in glucometer, lancets, and testing strips to pharmacy. Pt expressed understanding on all education and stated she is not able to come to clinic and get glucose log prior to appt on 02/08 but will track on a different paper and will transfer to values when at appt. documented in this encounter Plan of Treatment Upcoming Encounters Date Type Department Care Team (Late st Contact Info) Description 04/08/2024 11:00 AM EST Routine [facility] [address] [place] [address] Abiel Berrios MD [address] [place] [address] Scheduled Referrals Name Type Priority Associated Diagnoses Orde r Schedule Ambulatory Referral to [facility] Gestational Diabetes Education Outpatient Referral Routine Diet controlled gestational diabetes mellitus (GDM) in third trimester Expected: 02/04/2024 (Approximate), Expires: 08/04/2025 documented as of this encounter Visit Diagnoses Diagnosis Diet controlled gestational diabetes mellitus (GDM) in third trimester- Primary documented in this encounter Additional Health Concerns Assessment Noted Time A fall risk assessment has been complete d for the patient 01/27/2024 3:02 PM EDT A Body Mass Index follow-up plan has been documented for the patient 02/03/2024 11:36 AM EDT documented as of this encounter Care Teams Precision Grinder External Relationship Specialty Start Date End Date Meghan Beach, KHALIDA [address] [place] [address] [place] [address] PCP - General 04/03/22 documented as of this encounter
--- OUTSIDE RECORDS SUMMARY | 2024-03-26 19:33 | XMS_ITS | Encounter Summary ---
Author Organization [facility] Address [address] [place] [address] Care Team Providers Care Bagger And Stock Handler Helper Name Role Phone Meghan Beach KHALIDA Primary Care Provider [phone] Encounter Details Date Type Department Care Team (Latest Contact Info) Description 02/09/2024 Travel Social History Tobacco Use Types Packs/Day [...] Routine [facility] [address] [place] [address] Abiel Berrios MD [address] [place] [address] documented as of this encounter [...] documented as of this encounter Care Teams Bagger And Stock Handler Helper Relationship Specialty Start Date End Date Meghan Beach, KHALIDA [address] [place] [address] [place] [id number] PCP - General 04/03/22 documented as of this encounter
[2024-03-26 19:54] LABS: Basophils # 0.1 K/mm3 (0-0.2); Basophils % 0.8 % (0.1-2.0); Eosinophils # 0.5 K/mm3 (0.0-0.4); Eosinophils % 5.5 % (0.1-12.0); Hematocrit 36.6 % (37.0-47.0); Hemoglobin 12.5 g/dL (12.2-16.2); Lymphocytes # 2.8 K/mm3 (0.7-4.5); Lymphocytes % 27.8 % (10-50); Mean Corpuscular HGB Conc 34.2 g/dL (31.8-35.4); Mean Corpuscular Volume 84.9 fl (81-99); Mean Platelet Volume 7.7 fl (7.4-10.4); Monocytes # 0.4 K/mm3 (0.1-1.0); Monocytes % 4.1 % (1.7-9.3); Neutrophils # 6.1 K/mm3 (1.8-7.8); Neutrophils % 61.8 % (37.0-80.0); Platelet Count 412 K/mm3 (142-424); Red Blood Count 4.31 M/mm3 (4.20-5.40); Red Cell Distribution Width 14.7 % (11.5-17.5); White Blood Count 9.9 K/mm3 (4.8-10.8)
[2024-03-26 20:11] LABS: Albumin Level 4.2 g/dl (3.5-5.0); Chloride 108 mmol/L (98-107)
[2024-03-26 20:12] LABS: Potassium 3.7 mmoL/L (3.5-5.1); Sodium 139 mmol/L (136-145)
[2024-03-26 20:14] LABS: Alanine Aminotransferase 20 U/L (12-78); Anion Gap 9.7 mEq/L (5-15); Aspartate Amino Transferase 25 U/L (14-36); Blood Urea Nitrogen 16 mg/dl (7-17); Carbon Dioxide 25 mmol/L (22.0-30.0); Estimated Glomerular Filt Rate 71 ml/min (>60); GFR (African American) 86 ML/MIN (>60)
[2024-03-26 20:15] LABS: Albumin/Globulin Ratio 1.6 (1.1-1.8); Alkaline Phosphatase 95 U/L (38-126); Bilirubin,Total 0.4 mg/dl (0.2-1.3); Calcium 10.1 mg/dl (8.4-10.2); Chol/HDL Ratio 7.8 (1-3.5); Cholesterol 288 mg/dl (140-200); Globulin 2.6 g/dL (1.3-3.2); Glucose 95 mg/dl (74-100); HDL Cholesterol 37 mg/dl (40-60); Total Protein,Serum 6.8 g/dl (6.3-8.2); Triglycerides 381 mg/dl (30-150); VLDL Cholesterol 76 mg/dL (0-40)
[2024-03-26 20:26] LABS: Direct LDL Cholesterol 186.43 mg/dL (100-129)
[2024-03-26 20:43] LABS: 25-OH Vitamin D, Total 17.7 ng/mL (30-100)
[2024-03-26 20:46] LABS: Thyroid Stimulating Hormone 0.63 uIU/mL (0.465-4.68)
== END 2024-03-26 23:59 | disposition home or self-care (01) ==
LOC: LAB.DROPOF 19:30
PROVIDERS: PCP Family Medicine; Visit Provider Family Medicine
DX: E55.9 Vitamin D deficiency, unspecified (principal); E11.9 Type 2 diabetes mellitus without complications; Z79.84 Long term (current) use of oral hypoglycemic drugs; Z79.85 Long-term (current) use of injectable non-insulin antidiabetic drugs
CPT/HCPCS: 80050; 80053; 80061; 82306; 84443; 85025

== ENCOUNTER 2024-07-21 16:00 | Outpatient (CLI) | payer OTHER, SELFPAY ==
[2024-07-21 20:12] LABS: Chol/HDL Ratio 3.8 (1-3.5); Cholesterol 195 mg/dl (140-200); HDL Cholesterol 51 mg/dl (40-60); Triglycerides 215 mg/dl (30-150); VLDL Cholesterol 43 mg/dL (0-40)
[2024-07-21 20:23] LABS: Direct LDL Cholesterol 123.27 mg/dL (100-129)
== END 2024-07-21 23:59 | disposition home or self-care (01) ==
LOC: LAB.DROPOF 07-22 09:50
PROVIDERS: PCP Family Medicine; Visit Provider Family Medicine
DX: E55.9 Vitamin D deficiency, unspecified (principal); E78.5 Hyperlipidemia, unspecified
CPT/HCPCS: 80061; 82306

== ENCOUNTER 2025-02-14 17:12 | Emergency (ER) | payer OTHER, SELFPAY ==
--- OUTSIDE RECORDS SUMMARY | 2025-02-07 11:11 | XMS_ITS | Continuity of Care Document ---
Author Organization [facility] Address [address] [place] [address] Phone Care Team Providers Care Bend Up Name Role Phone Ranjit Moore MD Unavailable Unavailable Allergies, Adverse Reactions, Alerts Substance Reaction Status Criticality No Known Allergies Active No Inform ation Medications Medication Instructions Dosage Effective Dates (start - stop) Status Comments Ativan 0.5 mg tablet take 1 tablet by or al route 2 times every day as needed 0.5 MG - Active hydroxyzine HCl 25 mg tablet take 1 tablet by oral route 3 times every day as needed 25 MG - Active Multivitamins 28 mg iron-800 mcg tablet take 1 tablet by oral route every day 1 tablet - Active Advance Directives Directive Yes / No Effective Date File Name No Information Encounters Encounter Description Practice Location Reason(s) For Visit Diagnoses Date Provider [facility], [address] [place] [address], [facility], tel:[phone] [facility] ASHLY/BETHANY MARTINEZ follow up (chief complaint) Unspecified psychosis not due to a substance or known physiological condition 5 Teresa Church. [address] [place] [address], [facility], . tel:[phone] [facility], [address] [place] [address], [facility], tel:[phone] [facility] HEYDI SPRAGUE establish care (chief complaint) PRAPARE (chief complaint) Extreme povertyLess than a high school diplomaEncounter for screening for depressionAnxiety Jan- 5 Barbara Isbell. [address], [place], [facility], . tel:[phone] [facility], [address] [place] [address], [facility], tel:[phone] [facility] CH/BH JUAN follow up (chief complaint) Acute stress reaction 5 Teresa Church. [address] [place], [place], [facility], [place]. tel:[phone] [facility], [address] [place] [address], [facility], tel:[phone] [facility] CH/BH JUAN follow up (chief complaint) Brief Psychotic Disorder 3 Teresa Church. [address], [place], [facility], [place]. tel:[phone] [facility], [address] [place] [address], [facility], tel:[phone] 1 Unspecified Schizophrenia Spectrum and Other Psychotic Disorder 3 Kelechi Fabian. [address], [place], [place], [address] [place] [address], [place]. tel:[phone] [facility], [address] [place] [address], [facility], tel:[phone] 1 No Information 3 Miracle-May aki Jayde. [address], [place], [place], [id number], [place]. tel:[phone] [facility], [address] [place] [address], [facility], tel:[phone] 72 [facility] CH/BH JUAN follow up (chief complaint) Brief Psychotic Disorder Sep-2 0 3 Teresa Church. [address], [place], [facility], [place]. tel:[phone] [facility], [address] [place] [address], [facility], [place] tel:[phone] [facility] CH/BH JUAN follow up (chief complaint) Brief Psychotic Disorder 3- 3 Teresa Church. [address], [place], [facility], [place]. tel:[phone] [facility], [address] [place] [address], [facility], [place] tel:[phone] [facility]/BH JUAN follow up (chief complaint) Brief Psychotic Disorder 3 [facility]. [address], [place], [facility], [place]. tel:[phone] [facility], [address] [place] [address], [facility], [place] tel:[phone] [facility]/BH JUAN Brief Psychotic Disorder 3 Teresa Ranjit. [address], [place], [facility], [place]. tel:[phone] [facility], [address] [place] [address], [facility], tel:[phone] [facility]/BH JUAN Brief Psychotic Disorder 3 [facility] Ranjit. [address], [place], [facility], [place]. tel:[phone] [facility], [address] [place] [address], [facility], [place] tel:[phone] [facility] CH OBGYN routine (chief complaint) 23 weeks gestation of pregnancySupervision of high risk , 2nd trimesterObesity complicating , second trimesterMaternal care for low transverse scar from previous c section deliveryEncounter for supervision of normal , unspecified, second trimesterEncounter for supervision of other normal , second trimester Mar- 2 Perfecto Bowman. [address], [place], [facility], [place]. tel:[phone], [facility], [place] tel:[phone] [facility] KP RENO No Information 2 Yong Christianson. [address] [place] [address], [place], [address], [place]. tel:[phone] [facility], [address] [place] [address], [facility], tel:[phone] [facility] HRSA SHADIA No Information 2 Yong Tyara. [address] [place] [address], [address] [place] [address]. tel:[phone] [facility], [address] [place] [address], [facility], tel:[phone] [facility] HRSA SHADIA No Information 2 Yong Tyara. [address] [place] [address], [facility], . tel:[phone] [facility], [address] [place] [address], [facility], tel:[phone] [facility] HRSA SHADIA No Information 2 Yong Christianson. [address] [place] [address], [facility], . tel:[phone] Family History Family Member Type Diagnosis Age At Onset Daughter Problem Alive and well Sister Problem Alive and well Brother Problem Alive and well Mother Problem lupus Father Problem MVA Son Problem Alive and well Mother Problem Migraine headaches Son Problem x 2 Mother Problem Alive and well Immunizations Vaccine Date Status Comments MMR administered Source: Other R egistry RSV, bivalent subunit administered Source : Other Registry Influenza, P-Free administered Source: Ot her Registry Tdap, Adsorbed administered Source: Other Registry Hep B, adult administered Source: Other R egistry Hep A, adult administered Source: Other R egistry Hep A, adult administered Source: Other R egistry Hep B, adult administered Source: Other R egistry Tdap, Adsorbed administered Source: Other Registry Td (adult), adsorbed administered Source: Other Registry MMR administered Source: Other R egistry DTP administered Source: Other R egistry Polio, UF administered Source: Other R egistry Hib, UF administered Source: Other R egistry DTP administered Source: Other R egistry JOSELO Stephenson administered Source: Other R egistry MMR administered Source: Other R egistry DTP administered Source: Other R egistry JOSELO Stephenson administered Source: Other R egistry DTP administered Source: Other R egistry JOSELO Stephenson administered Source: Other R egistry DTP administered Source: Other R egistry Payers Payer name Insurance type Covered libertarian ID Authoriza tion(s) No Information Social History Type Description Quantity Date Captured Comments Alcohol Use Details No Caffeine Use Details Unknown Tobacco Use Status No Information Smoking Status No Information Sex Female Sexual Orientation Straight or heterosexual Apr Gender Identity Female Chief Complaint And Reason For Visit From encounter dated 02/07/2025 15:11'. follow up (chief complaint). Description: I'm doing well. Pt now has a new provider in her area. No longer needs services from this provider. Plan Of Treatment Date Type Action Status Goal Lipid panel. Due on due Goal CBC. Due on due Goal HIV screen due Goal Tobacco Use Cess ation Counseling. Due on due Goal Depression screening. Due on due Goal Generalized Anxi ety Disorder - 7 (BACILIO-7). Due on due Goal Unhealthy drug u se screening. Due on due Goal Hepatitis C Screening. Due o n due Goal Tobacco screening. Due on Oc due Goal Vitamin D. Due on due Goal PAP. Due on due Goal HPV testing. Due on due Goal TSH. Due on due Goal Tobacco Use Screening. Due o n due Goal Vitamin B12. Due on due Goal Drug Abuse Scree no Test (DAST-10). Due on due Goal Diabetes screening. Due on O due Goal Influenza vaccine. Due on Oc due Goal HPV. Due on due Goal Follow up Plan f or abnormal BMI (Less than 18.5, greater than 25). Due on due Goal Hematocrit/Hemoglobin. Due o n due Goal Hemoglobin (Pree nichole/HR 9 months). Due on due Goal CMP. Due on due Goal Obtain Height, W eight, and BMI. Due on due Goal Pap/HPV testing. Due on due Goal Pap/HPV testing. Due on due Goal Tobacco Use Cess ation Counseling. Due on due Goal Tobacco screening. Due on Oc due Goal Vitamin D. Due on due Goal Tobacco Use Screening. Due o n due Goal Drug Abuse Scree no Test (DAST-10). Due on due Goal Influenza vaccine. Due on Oc due Goal Vitamin B12. Due on due Goal HIV screen due Goal Follow up Plan f or abnormal BMI (Less than 18.5, greater than 25). Due on due Goal Obtain Height, W eight, and BMI. Due on due Goal CBC. Due on due Goal PAP. Due on due Goal HPV. Due on due Goal TSH. Due on due Goal Generalized Anxi ety Disorder - 7 (BACILIO-7). Due on due Goal Unhealthy drug u se screening. Due on due Goal HPV testing. Due on due Goal Diabetes screening. Due on O due Goal CMP. Due on due Goal Hepatitis C Screening. Due o n due Goal Depression screening. Due on due Goal Hematocrit/Hemoglobin. Due o n due Goal Hemoglobin (Pree nichole/HR 9 months). Due on due Goal Lipid panel. Due on due Goal Tobacco screening. Due on Au due Goal HPV testing. Due on due Goal Diabetes screening. Due on A due Goal Pap/HPV testing. Due on due Goal Hepatitis C Screening. Due o n due Goal HPV. Due on due Goal CBC. Due on due Goal CMP. Due on due Goal Depression screening. Due on due Goal Influenza vaccine. Due on due Goal Unhealthy drug u se screening. Due on due Goal Tobacco Use Screening. Due o n due Goal Vitamin B12. Due on due Goal Drug Abuse Scree no Test (DAST-10). Due on due Goal TSH. Due on due Goal HIV screen due Goal PAP. Due on due Goal Generalized Anxi ety Disorder - 7 (BACILIO-7). Due on due Goal Tobacco Use Cess ation Counseling. Due on due Goal Vitamin D. Due on due Goal Follow up Plan f or abnormal BMI (Less than 18.5, greater than 25). Due on due Goal Obtain Height, W eight, and BMI. Due on due Goal Hemoglobin (Pree nichole/HR 9 months). Due on due Goal Hematocrit/Hemoglobin. Due o n due Goal Lipid panel. Due on due Goal Obtain Height, W eight, and BMI. Due on due Goal HPV testing. Due on 023 due Goal Influenza vaccine. Due on due Goal Vitamin D. Due on due Goal Pap/HPV testing. Due on due Goal Unhealthy drug u se screening. Due on due Goal HIV screen due Goal Depression screening. Due on due Goal Diabetes screening. Due on N due Goal Generalized Anxi ety Disorder - 7 (BACILIO-7). Due on due Goal Tobacco Use Cess ation Counseling. Due on due Goal Hepatitis C Screening. Due o n due Goal Vitamin B12. Due on 023 due Goal CBC. Due on due Goal CMP. Due on due Goal Follow up Plan f or abnormal BMI (Less than 18.5, greater than 25). Due on due Goal Tobacco Use Screening. Due o n due Goal PAP. Due on due Goal HPV. Due on due Goal Drug Abuse Scree no Test (DAST-10). Due on due Goal TSH. Due on due Goal PAP. Due on due Goal Influenza vaccine. Due on Oc due Goal CMP. Due on due Goal Pap/HPV testing. Due on due Goal Vitamin D. Due on due Goal Tobacco Use Cess ation Counseling. Due on due Goal HPV. Due on due Goal TSH. Due on due Goal Generalized Anxi ety Disorder - 7 (BACILIO-7). Due on due Goal Obtain Height, W eight, and BMI. Due on due Goal HPV testing. Due on due Goal Tobacco Use Screening. Due o n due Goal Vitamin B12. Due on due Goal Depression screening. Due on due Goal Hepatitis C Screening. Due o n due Goal Drug Abuse Scree no Test (DAST-10). Due on due Goal Diabetes screening. Due on O due Goal HIV screen due Goal Unhealthy drug u se screening. Due on due Goal CBC. Due on due Goal Follow up Plan f or abnormal BMI (Less than 18.5, greater than 25). Due on due Goal Vitamin D. Due on due Goal HIV screen due Goal Obtain Height, W eight, and BMI. Due on due Goal Vitamin B12. Due on due Goal PAP. Due on due Goal Generalized Anxi ety Disorder - 7 (BACILIO-7). Due on due Goal Pap/HPV testing. Due on due Goal HPV testing. Due on due Goal TSH. Due on due Goal Depression screening. Due on due Goal Diabetes screening. Due on S due Goal Unhealthy drug u se screening. Due on due Goal CMP. Due on due Goal Tobacco Use Screening. Due o n due Goal Hepatitis C Screening. Due o n due Goal Influenza vaccine. Due on Se due Goal CBC. Due on due Goal Tobacco Use Cess ation Counseling. Due on due Goal Follow up Plan f or abnormal BMI (Less than 18.5, greater than 25). Due on due Goal HPV. Due on due Goal Drug Abuse Scree no Test (DAST-10). Due on due Goal Diabetes screening. Due on A due Goal Obtain Height, W eight, and BMI. Due on due Goal Tobacco Use Screening. Due o n due Goal Vitamin D. Due on due Goal Influenza vaccine. Due on Au due Goal Depression screening. Due on due Goal Follow up Plan f or abnormal BMI (Less than 18.5, greater than 25). Due on due Goal HPV testing. Due on due Goal TSH. Due on due Goal CBC. Due on due Goal Vitamin B12. Due on due Goal PAP. Due on due Goal HIV screen due Goal Unhealthy drug u se screening. Due on due Goal CMP. Due on due Goal HPV. Due on due Goal Generalized Anxi ety Disorder - 7 (BACILIO-7). Due on due Goal Drug Abuse Scree no Test (DAST-10). Due on due Goal Pap/HPV testing. Due on due Goal Hepatitis C Screening. Due o n due Goal Tobacco Use Cess ation Counseling. Due on due Goal Drug Abuse Scree no Test (DAST-10). Due on due Goal HIV screen. Due on due Goal CBC. Due on due Goal CMP. Due on due Goal Influenza vaccine. Due on due Goal Tobacco Use Cess ation Counseling. Due on due Goal Follow up Plan f or abnormal BMI (Less than 18.5, greater than 25). Due on due Goal Tobacco Use Screening. Due o n due Goal HPV testing. Due on due Goal TSH. Due on due Goal Hepatitis C Screening. Due o n due Goal Vitamin B12. Due on due Goal Obtain Height, W eight, and BMI. Due on due Goal PAP. Due on due Goal Vitamin D. Due on due Goal Diabetes screening. Due on due Goal HPV. Due on due Goal Unhealthy drug u se screening. Due on due Goal Pap/HPV testing. Due on due Goal Generalized Anxi ety Disorder - 7 (BACILIO-7). Due on due Goal Depression screening. Due on due Goal HPV testing. Due on due Goal HIV screen. Due on due Goal Obtain Height, W eight, and BMI. Due on due Goal Drug Abuse Scree no Test (DAST-10). Due on due Goal Depression screening. Due on due Goal Vitamin D. Due on due Goal Pap/HPV testing. Due on due Goal Vitamin B12. Due on due Goal Diabetes screening. Due on due Goal Generalized Anxi ety Disorder - 7 (BACILIO-7). Due on due Goal Follow up Plan f or abnormal BMI (Less than 18.5, greater than 25). Due on due Goal CMP. Due on due Goal HPV. Due on due Goal Unhealthy drug u se screening. Due on due Goal Hepatitis C Screening. Due o n due Goal PAP. Due on due Goal CBC. Due on due Goal TSH. Due on due Goal Tobacco Use Cess ation Counseling. Due on due Goal Tobacco Use Screening. Due o n due Goal Influenza vaccine. Due on due Goal Hepatitis C Screening. Due o n due Goal Depression screening. Due on due Goal PAP. Due on due Goal Diabetes screening. Due on due Goal Tobacco Use Cess ation Counseling. Due on due Goal Obtain Height, W eight, and BMI. Due on due Goal Vitamin D. Due on due Goal Unhealthy drug u se screening. Due on due Goal CMP. Due on due Goal CBC. Due on due Goal Tobacco Use Screening. Due o n due Goal Drug Abuse Scree no Test (DAST-10). Due on due Goal Generalized Anxi ety Disorder - 7 (BACILIO-7). Due on due Goal Pap/HPV testing. Due on due Goal Follow up Plan f or abnormal BMI (Less than 18.5, greater than 25). Due on due Goal HPV. Due on due Goal HPV testing. Due on due Goal Vitamin B12. Due on due Goal HIV screen. Due on due Goal Influenza vaccine. Due on due Goal TSH. Due on due Goal Vitamin D. Due on due Goal Lipid panel. Due on due Goal Drug Abuse Scree no Test (DAST-10). Due on due Goal Hepatitis C Screening. Due o n due Goal CBC. Due on due Goal Generalized Anxi ety Disorder - 7 (BACILIO-7). Due on due Goal Tobacco Use Screening. Due o n due Goal Diabetes screening. Due on D due Goal Vitamin B12. Due on due Goal HIV screen. Due on due Goal Tobacco Use Cess ation Counseling. Due on due Goal Obtain Height, W eight, and BMI. Due on due Goal Follow up Plan f or abnormal BMI (Less than 18.5, greater than 25). Due on due Goal Influenza vaccine. Due on due Goal TSH. Due on due Goal Depression screening. Due on due Goal PAP. Due on due Goal HPV testing. Due on due Goal CMP. Due on due Future Order: Lab Order PROTEIN, TOTAL W/CREAT, 24 HOUR URINE (757), Ordered on: Ordered History Of Present Illness Encounter Date Complaint History Of Prese nt Illness follow up I'm doing well. Pt now has a new provider in her area. No longer needs services from this provider. establish care states went off Lexapro but wants switched to Cymbalta or Lyrica, has seen Dr Li in the past but wants to switch to another provider, does not have appt until February 15, needs refill of Ativan and HydroxyzinePap smear scheduled in 02/2025Declines Flu VaccineVerbal order per Dr Jimenez: UDS follow up Pt is doing well , making progress in her custody case. she is no longer on meds but has found a mental health provider near where she lives. It appears her behavior was associated with severe stress that she was experiencing. She states she is doing much better and will follow with new provider. follow up I'm doing good. Pt is very neatly groomed and pleasant. Very cooperative. going to court today but it was rescheduled. Smiles easily . follow up Went to court ag ain today. Janie father wants full custody. Pt wants 50/50. Pt is always very compliant and always presents well. Always neatly groomed. Clearly denies plan to harm self or others. This provider has never witnessed any abnormal behavior. Appears this behavior happens when she is stressed. Loss of custody seems to be the most stressful. follow up I'm doing good. Discussed elevated bp Explained she needs to see her family MD regarding this . She states she will go to Dr. Lopez's office after this visit. Son is being transitioned back to her home and she is glad of this. Not sure of what is going to happen with the daughter. follow up I'm doing well, had court this am, According to the pt; Father of child is trying to prove she is unfit to be a mother because of her mental state. Pt has been very compliant with treatment. She is willing to continue medication even though it is unpleasant for her. Issues pt has appear to be related to the stress she has been under. She does not appear to have ongoing psychological issues. She is always very neatly groomed, polite and appropriate when she comes to the clinic. No evidence of abuse and states her child has never witnessed any problems she has experienced. routine 31 year old 23 week 1 day P1 presenting for routine visit. Patient states no complaints. Instructions Date Instruction Additional Infor mation No Information Assessments Type Assessment Date assessment Unspecified psychosi s not due to a substance or known physiological condition
[2025-02-14 17:16] VITALS: BP 189/101; PULSE 67; RESP 18; TEMP 36.8; O2SAT 100; BMI 51.7
--- NOTE | 2025-02-14 17:31 | ED_ITS ---
<Statement entered by Jc Mendieta MD - 02/14/25 22:37> I was consulted by the CHARANJIT, and we discussed the complexity of the problems being addressed. I approved the treatment and management plan for this patient's care in the emergency department, thus performing a substantive portion of the medical decision making. Jc Mendieta MD, SIMONA, FACEP Discharge Plan Disposition Patient Disposition: Home, Self-Care Prescriptions Prescriptions: No Action Invega Sustenna 234 mg/1.5 mL syringe IM Patient Comments: INJECT 1 SYRINGE SUBCUTANEOUSLY ONCE EVERY 4 WEEKS atorvastatin [Lipitor] 10 mg tablet 10 mg PO HS Qty: 90 3RF cholecalciferol (vitamin D3) 1,250 mcg (50,000 unit) capsule 1,250 mcg PO WEEKLY 42 Days Qty: 6 3RF Mounjaro 2.5 mg/0.5 mL pen injector 2.5 mg SQ WEEKLY Qty: 2.5 0RF Rx Instructions: for 4 weeks bisoprolol fumarate 5 mg tablet See Rx Instructions .ROUTE .COMPLEX Qty: 90 2RF Dose Instruction: TAKE 1 TABLET BY MOUTH EVERY DAY Rx Instructions: TAKE 1 TABLET BY MOUTH EVERY DAY metformin 500 mg tablet See Rx Instructions .ROUTE .COMPLEX Qty: 60 2RF Dose Instruction: TAKE 1 TABLET BY MOUTH 2 TIMES A DAY Rx Instructions: TAKE 1 TABLET BY MOUTH 2 TIMES A DAY cholecalciferol (vitamin D3) 25 mcg (1,000 unit) tablet See Rx Instructions .ROUTE .COMPLEX Qty: 30 2RF Dose Instruction: TAKE 1 TABLET BY MOUTH ONCE A DAY Rx Instructions: TAKE 1 TABLET BY MOUTH ONCE A DAY Referrals Follow up/Referrals: Bibiana Everett APRN [Primary Care Provider, Family Practice] - See instructions Clinical Impressions Clinical Impression: Foreign body Instructions Patient Instructions: DI for Removal of Foreign Body From Ear Print Language Print Language: Latvian Discharge ED Provider: Jc Mendieta General Adult HPI General Chief complaint: Skin/Abscess/Foreign Body Stated complaint: cotton swab stuck in ear Time Seen by Provider: 02/14/25 17:31 Mode of Arrival: Ambulatory Source of Information: Patient Description of Symptoms (Recalled from ER Triage Doc. by RN): patient presents for foreign body in ear. patient stated that she was swabbig her ear about 3 hours ago when the cotton on the end of a cotton swab dislodged and lodged in her ear. History of Present Illness HPI narrative: 34-year-old female presents to the ED today for foreign body in her right ear. She was swabbing her ear earlier today and the cotton on the end dislodged and went in her ear. Related Data Home Medications ?Medication ?Instructions ?Recorded ?Confirmed paliperidone palmitate 234 mg/1.5 mg IM 03/26/2410/26 mL intramuscular syringe (Invega Sustenna) Previous Rx's ?Medication ?Instructions ?Recorded atorvastatin 10 mg tablet (Lipitor) 10 mg PO HS #90 ta bs 07/21/24 cholecalciferol (vitamin D3) 1,250 1,250 mcg PO WEEKLY 6 weeks #6 caps 07/22/24 mcg (50,000 unit) capsule tirzepatide 2.5 mg/0.5 mL 2.5 mg (0.5 mL) SQ WEEKLY #2 .5 mL 09/08/24 subcutaneous pen injector (Mounjaro) bisoprolol fumarate 5 mg tablet See Rx Instructions .R oute 11/15/24 .COMPLEX #90 tabs metformin 500 mg tablet See Rx Instructions .Route 0 12/13/24 .COMPLEX #60 tabs cholecalciferol (vitamin D3) 25 See Rx Instructions .R oute 01/10/25 mcg (1,000 unit) tablet .COMPLEX #30 ea Allergies Allergy/AdvReac Type Severity Reaction Status Date / Time No Known Allergies Allergy Verified 10/26/24 14:22 [facility] Disclaimer: The information contained in this section may have been updated after the rebecca lerner was seen, as this information can be updated by other users. Medical History Bipolar 1 disorder Fibromyalgia Hypertension Diabetes Surgical History Delivery by section Social History Smoking Status: Current every day smoker smoking status start date: vape years smoked: 2 alcohol intake: never current occupational status: unemployed Travel in the last 8 weeks?: None marital status: legally number of children: 3 Have you lived/traveled outside US in past 30 days?: No Contact w/someone who lives/traveled outside US past 30 days?: No Exposure to someone with infectious disease in past 14 days?: No Do you have a fever (greater than 100.4 F or 38 C)?: No Have you tested positive for COVID-19?: No Exposed to someone with COVID-19 in past 14 days?: No Do you have a sore throat?: No Do you have a cough?: No Do you have any weakness?: No Do you have any diarrhea?: No Are you experiencing any unusual bleeding?: No Do you have any muscle aches/pain?: No Do you have any abdominal pain?: No Are you experiencing loss of taste or smell?: No ROS Obtained: Yes Systems reviewed as appropriate & no additional complaints except as documented Constitutional Constitutional: Reports as per HPI Physical Exam General General appearance: alert and in no apparent distress Head Head exam: normocephalic Eye Eye exam: Present PERRL and EOMI ENT ENT exam: Present normal oropharynx and other (Cotton in her right ear) Neck Neck exam: Present full ROM Respiratory Respiratory exam: Present normal lung sounds bilaterally Cardiovascular Cardiovascular exam: Present regular rate, normal rhythm, normal heart sounds, +S1 and +S2 Extremities Exam Extremities exam: Present full ROM and normal capillary refill Neurological Exam Neurological exam: Present alert and oriented X3 Skin Skin exam: Present warm, dry and intact Medical Decision Making Medical Records Screening: Per USPSTF and CDC recommendations, given the prevalence of disease in our region, it is our hospital?s policy to screen for HIV and viral Hepatitis for all patients aged 18 and over and those with ongoing risk factors. Kishan Inquiry Pt receiving controlled substance: No Kishan was queried for this patient: No Vital Signs: 02/14/25 17:16 Temperature 98.2 F Temperature Source Oral Pulse Rate [Right Radial] 67 Respiratory Rate 18 Blood Pressure [Right Arm] 189/101 H Blood Pressure Mean [Right Arm] 130 Blood Pressure Source [Right Arm] Automatic Cuff Blood Pressure Position [Right Arm] Sitting 02 Sat by Pulse Oximetry 100 Oxygen Delivery Method Room Air Medical Decision Narrative: patient is a 34-year-old female presenting to the emergency department for evaluation of foreign body in right ear. Patient is hemodynamically stable and nontoxic-appearing upon arrival, afebrile. Differential diagnosis includes foreign body. Used alligator forceps to remove the cotton from the ear. Patient tolerated well. Patient safe for discharge home. Procedures Foreign Body Removal Time Out Performed: Yes Site: ear Description of foreign body: other (Cotton) Sedation/Analgesia: none Technique: manual removal Confirmed by:: direct visualization Complications: none Post-procedure exam: awake, alert Critical Care Critical Care Time Critical Care Time: No
--- OUTSIDE RECORDS SUMMARY | 2025-02-14 17:31 | XMS_ITS | Encounter Summary ---
Author Organization Healthcare Address [address] [place] [address] Care Team Providers Care Wood Fence Installer Name Role Phone Bibiana Everett APRN Primary Care Provider [phone] Encounter Details Date Type Department Care Team ([facility] Contact Info) Description 02/08/2025 Telephone Obstetrics & Gynecology [address] [place] [address] Abiel Berrios MD [address] [place] [address] Social History Tobacco Use Types Packs/Day Years Used Date Smoking Tobacco: Never Assessed PHQ-2 Answer Date Recorded Patient Health Questionnaire-2 Score 0 12/02/2024 Cisco Depression Scale Answer Date Recorded Cisco Depression Scale Total 2 04/08/2024 The thought of harming myself has occurred to me . Never 04/08/2024 PHQ-9 Answer Date Recorded Patient Health Questionnaire-9 Score 0 12/02/2024 Comments Unknown Sex and Gender Information Value Date Recorded Sex Assigned at Female 01/09/2024 8:09 AM EDT Legal Sex Female 11:07 AM EST Gender Identity Female 01/09/2024 8:09 AM EDT Sexual Orientation Straight 01/09/2024 8: 09 AM EDT documented as of this encounter Miscellaneous Notes * Telephone Encounter - Meryl Osborne 02/08/2025 10:05 AM EDT Pt requesting a prescription to be sent for the mirena * Telephone Encounter - Amanda Aponte - 02/08/2025 9:40 AM EDT Clinical Concern/Question Reason for Call: pt is calling Elizabeth back; trying to get an IUD prescribed; please call pt. Best contact number: [phone] (mobile) Optimal time of day to reach caller: ANYTIME Additional comments/information from caller: Not Applicable Note: Please do not reply to this message. Follow-up communication and further actions as a result of this message need to be communicated with the patient directly, if the patient is not active onMyChart. If the patient is active on MyChart, they will receive notification of the communication/outcome via [email or web address]. documented in this encounter Plan of Treatment Upcoming Encounters Date Type Department Care Team (Late st Contact Info) Description 02/21/2025 3:45 PM EST Procedure Visit Obstetrics & Gynecology [address] [place] [address] Abiel Berrios MD [address] [place] [address] documented as of this encounter Goals Goal Patient Goal Type Associated Problems Recent Progress Patient-Stated? Author Delayed Delivery Care Plan CPM S22 PP LABOR (OBSTETRICS) No Open Scheduling, Background documented as of this encounter Visit Diagnoses Not on filedocumented in this encounter Additional Health Concerns Active Problems Noted Date Diagnosed Date CPM S22 PP LABOR (OBSTETRICS) 02/05/2024 Assessment Noted Time PHQ-9 Depression Total Score: 0 12/03/19 25 2:48 PM EDT A fall risk assessment has been complete d for the patient 12/02/2024 2:48 PM EDT A Body Mass Index follow-up plan has been documented for the patient 12/02/2024 3:22 PM EDT documented as of this encounter Care Teams Wood Fence Installer Relationship Specialty Start Date End Date Bibiana Everett APRN [address] [place] [address] PCP - General 11/25/24 documented as of this encounter
--- OUTSIDE RECORDS SUMMARY | 2025-02-14 17:31 | XMS_ITS | Clinical Summary ---
Author Organization Healthcare Address [address] [place] [address] Care Team Providers Care Dispute Resolution Analyst Name Role Phone Bibiana Everett APRN Primary Care Provider [phone] Allergies No known active allergies Medications aspirin 81 MG EC tablet Take 1 tablet (81 mg) by mouth 1 (one) time each day. Active NIFEdipine XL (Procardia XL) 30 MG 24 hr tablet TAKE TWO TABLETS BY MOUTH 2 TIMES A DAY 120 tablet 06/10/2024 Active ibuprofen 800 MG tablet TAKE ONE TABLET BY MOUTH EVERY 8 HOURS NEEDED FOR MILD PAIN 1 TO 3 ON PAIN SCALE 60 tablet 06/14/2024 Active labetalol (Normodyne) 200 MG tablet TAKE ONE TABLET BY MOUTH 3 TIMES A DAY 90 tablet 06/14/2024 Active Vit-Fe Fumarate-FA ( Vitamins) 28-0.8 MG tablet Take 1 tablet by mouth 1 (one) time each day. 90 tablet 3 02/09/2024 02/09/20 25 Active Problems Problem Noted Date Diagnosed Date 35 weeks gestation of 03/01/2024 Chronic hypertension complic ating or reason for care during , third trimester 03/01/2024 Multigravida of advanced maternal age in third t rimester 03/01/2024 Gestational diabetes mellitus (GDM) in third tri mester 03/01/2024 Resolved Problems Problem Noted Date Diagnosed Date Resolved Date Previous section co mplicating 03/01/2024 01/09/2025 Encounters Date Type Department Care Team Description 02/14/2025 Travel 02/08/2025 Telephone Obstetrics & Gynecology [address] [place] [address] Abiel Berrios MD 02/07/2025 Telephone Obstetrics & Gynecology [address] [place] [address] Abiel Berrios MD 12/02/2024 3:00 PM EDT Office Visit Obstetrics & Gynecology [address] [place] [address] Abiel Berrios MD Encounter for surveillance of injectable contraceptive (Primary Dx); Family planning 12/02/2024 Travel from Last 3 Months Immunizations Immunization Administration Dates Next Due Influenza, seasonal, injectable, preservative fr ee 01/19/2024 Rsv, Bivalent, Protein Subun it Rsvpref, Diluent Reconstituted, 0.5mL, PF 02/09/2024 Tdap 01/19/2024 Family History Medical History Relation Name Comments Lupus Mother Relation Name Status Comments Mother Social History Tobacco Use Types Packs/Day Years Used Date Smoking Tobacco: Never Assessed PHQ-2 Answer Date Recorded Patient Health Questionnaire-2 Score 0 12/02/2024 [place] Depression Scale Answer Date Recorded [place] Depression Scale Total 2 04/08/2024 The thought [...] Sign Reading Time Taken Comments Blood Pressure 157/95 12/02/2024 2:47 PM EDT Pulse 79 12/02/2024 2:47 PM EDT Temperature 36.8 C (98.2 F) 12/02/2024 2:47 PM EDT Respiratory Rate 16 01/27/2024 3:00 PM EDT Oxygen Saturation 98% 12/02/2024 2:47 PM EDT Inhaled Oxygen Concentration - - Weight 147 kg (324 lb 1.2 oz) 12/02/2024 2:47 PM EDT Height 167.6 cm (5' 6 ) 03/08/2024 2:11 PM EST Body Mass Index 52.31 03/08/2024 2:11 PM EST Plan of Treatment Upcoming Encounters Date Type Department Care Team (Late st Contact Info) Description 02/21/2025 3:45 PM EST Procedure Visit Obstetrics & Gynecology [address] [place] [address] Abiel Berrios MD [address] [place] [address] Health Maintenance Due Date Last Done Comments [facility]-HIV Screening 1988 [facility]-Hepatitis C Screening 1988 [facility]-Infant/Child/Adol SDOH Screenings 1988 [facility]-Varicella Vaccines (1 of 2 - 13+ 2-dose series) 2001 [facility]- SDOH Screenings 2006 [facility]-Adult SDOH Screenings 2006 [facility]-Pneumococcal Vaccine: Pediatrics (0 to 5 Years) and At-Risk Patients (6 to 49 Years) (1 of 2 - PCV) 09/04/2007 [facility]-Pap Smear 2009 HPV Vaccines (1 - 3-dose SCDM series) 09/04/2015 [facility]-Cervical Cancer Screening 2018 [facility]-HPV/Cotest 2018 [facility]-OBESI-70 Vaccine (2 - season) 2024 10/16/2022 [facility]-Influenza Vaccine (#1) 2024 01/19/2024 [facility]-Depression Screening 12/02/2025 025, 12/02/2024, 04/08/2024 [facility]-DTaP,Tdap,and Td Vaccines (9 - Td or Tdap) 01/18/2034 01/19/2024, 04/18/2022, 08/09/2016, Additional history exists [facility]-Zoster Vaccines (1 of 2) 2038 [facility]-HIB Vaccines Completed 12/31/1991 [facility]-IPV Vaccines Aged Out 11/28/1992, , 01/04/1989, Additional history exists No longer eligible based on patient's age to complete this topic [facility]-Hepatitis A Vaccines Aged Out 12/01/2020, 07/21 No longer eligible based on patient's age to complete this topic [facility]-Hepatitis B Vaccines Completed 021, 08/09/2016, 11/25/2002 [facility]-RSV Vaccine: 60+ Years or Discontinued 02/09/2024 [facility]-Obesity Intervention Completed 025, 04/08/2024, 02/24/2024, Additional history exists [facility]-Rotavirus Vaccines Aged Out No lo nger eligible based on patient's age to complete this topic Goals Goal Patient Goal Type Associated Problems Recent Progress Patient-Stated? Author Delayed Delivery Care Plan CPM S22 PP LABOR (OBSTETRICS) No Open Scheduling, Background Procedures Procedure Name Priority Date/Time Associated Diagnosis Comments POCT , URINE Routine 12/02/2024 2:56 PM EDT Encounter for surveillance of injectable contraceptive from Last 3 Months Results * POCT Urine (12/02/2024 2:56 PM EDT) Urine - Point of Care Negative Negative - women after 7 weeks gestation and dilute urine (specific gravity <1.010) may have false negative results. Plasma HCG testing is recommended. Test performed at Point of Care. INTERNAL QC OK, PREG URINE OK KIT LOT NUMBER, PREG URINE [id number] KIT EXPIRATION DATE, PREG URINE 11/30/2025 Urine Urine specimen obtained by clean catch procedure / Unknown 12/02/2024 2:56 PM EDT us Abiel Berrios MD POINT OF CARE TEST ENTER/EDIT O RDERABLES Edited Result - Final from Last 3 Months Additional Health Concerns Active Problems Noted Date Diagnosed Date CPM S22 PP LABOR (OBSTETRICS) 02/05/2024 Insurance [facility] MEDICAID Care Teams Dispute Resolution Analyst Relationship Specialty Start Date End Date Bibiana Everett APRN [address] [place] [address] PCP - General 11/25/24
--- OUTSIDE RECORDS SUMMARY | 2025-02-14 17:31 | XMS_ITS | Encounter Summary ---
Author Organization Healthcare Address [address] [place] [address] Care Team Providers Care Dietitian Teacher Name Role Phone Bibiana Everett APRN Primary Care Provider [phone] Encounter Details Date Type Department Care Team (Latest Contact Info) Description 02/14/2025 Travel Social History Tobacco Use Types Packs/Day Years Used Date Smoking Tobacco: Never Assessed PHQ-2 Answer Date Recorded Patient Health Questionnaire-2 Score 0 12/02/2024 [place] Depression Scale Answer Date Recorded [place] Depression Scale Total 2 04/08/2024 The thought [...] EST Procedure Visit Obstetrics & Gynecology [address] [place] [address] Abiel Berrios MD [address] [place] [address] documented as of this encounter [...] Time PHQ-9 Depression Total Score: 0 12/03/19 2:48 PM EDT A fall risk assessment has been complete d for the patient 12/02/2024 2:48 PM EDT A Body Mass Index follow-up plan has been documented for the patient 12/02/2024 3:22 PM EDT documented as of this encounter Care Teams Dietitian Teacher Relationship Specialty Start Date End Date Bibiana Eevrett APRN [address] [place] [address] PCP - General 11/25/24 documented as of this encounter
--- OUTSIDE RECORDS SUMMARY | 2025-02-14 17:31 | XMS_ITS | Encounter Summary ---
Author Organization Healthcare Address [address] [place] [address] Care Team Providers Care Import Specialist Name Role Phone Bibiana Everett APRN Primary Care Provider [phone] Encounter Details Date Type Department Care Team ([facility] Contact Info) Description 02/07/2025 Telephone Obstetrics & Gynecology [address] [place] [address] Abiel Berrios MD [address] [place] [address] Social History Tobacco Use Types Packs/Day Years Used Date Smoking Tobacco: Never Assessed PHQ-2 Answer Date Recorded Patient Health Questionnaire-2 Score 0 12/02/2024 [place] Depression Scale Answer Date Recorded [place] Depression Scale Total 2 04/08/2024 The thought [...] encounter Miscellaneous Notes * Telephone Encounter - Brandie Case 02/07/2025 4:08 PM EDT Called patient to get more information. Left VM. documented in this encounter Plan of Treatment Upcoming Encounters Date Type Department Care Team (Late st Contact Info) Description 02/21/2025 3:45 PM EST Procedure Visit Obstetrics & Gynecology [address] [place] [address] Abiel Berrios MD [address] [place] [address] documented as of this encounter [...] documented as of this encounter Care Teams Import Specialist Relationship Specialty Start Date End Date Bibiana Everett APRN [address] [place] [address] PCP - General 11/25/24 documented as of this encounter
--- OUTSIDE RECORDS SUMMARY | 2025-02-14 17:31 | XMS_ITS | Clinical Summary ---
Author Organization [facility] Address [address] [place] [address] Care Team Providers Care Foundation Stage Teacher Name Role Phone Gracie Patel METHANE G[employer] COLLECTION SYSTEM OPERATOR Primary Care Provider [phone] Social History Tobacco Use Types Packs/Day Years Used Date Smoking Tobacco: Never Assessed Comments Unknown Sex and Gender Information Value Date Recorded Sex Assigned at Not on file Legal Sex Female 8:24 AM EDT Gender Identity Not on file Sexual Orientation Not on file Plan of Treatment Health Maintenance Due Date Last Done Comments Annual Gynecologic Pelvic an d Breast Exam 1988 TDAP/TD VACCINES (1 - Tdap) 09/04/2007 PAP SMEAR 2009 ANNUAL PHYSICAL 10/25/2024 HEPATITIS C SCREENING 10/25/2024 INFLUENZA VACCINE 11/19/2024 Pneumococcal Vaccine 0-49 Aged Out No longer eligible based on patient's age to complete this topic Insurance [facility] Care Teams Foundation Stage Teacher Relationship Specialty Start Date End Date Gracie Patel APRN [address] [place], [place] [id number] PCP - General Family Medicine 10/25/24
[2025-02-14 17:34] VITALS: BP 00/00; PULSE 0; RESP 2; TEMP -17.7; TEMP 0; O2SAT 0
--- NOTE | 2025-02-14 17:34 | PC.NURSE ---
Pt was seen and ready for discharge, but did not wait to sign paperwork.
== END 2025-02-14 17:36 | disposition home or self-care (01) ==
PROVIDERS: Emergency Provider Student in an Organized Health Care Education/Training Program; PCP Family Medicine
DX: T16.1XXA Foreign body in right ear, initial encounter (principal); W44.8XXA Other foreign body entering into or through a natural orifice, initial encounter
CPT/HCPCS: 99283